=== PATIENT | male | born 1965 | race African-American/Black ===

== ENCOUNTER 2020-09-25 06:57 | Emergency (ER) | payer MEDICAID ==
[2020-09-25 07:16] VITALS: BP 182/95; PULSE 99
[2020-09-25] MEDS: Ketorolac 60 MG/2 ML SDV IM ONE (07:37)
--- NOTE | 2020-09-25 07:37 | EDM.PDOC ---
ED HPI GENERAL MEDICAL PROBLEM - General Chief Complaint: Lower Extremity Injury/Pain Stated Complaint: LEG PAIN AND HIP PAIN Time Seen by Provider: 09/25/20 07:25 Source of Information: Reports: Patient, Old Records, RN History Limitations: Reports: No Limitations - History of Present Illness INITIAL COMMENTS - FREE TEXT/NARRATIVE: 55 yo male presents with bilateral hip pain, left worse than right. Has been walking a little different due a recent gout flare. Had some pain last evening, much worse today. Unable to go to work today due to the pain. He has no hx of hip issues. He took nothing for the pain. He has not missed any of his BP meds. He recently had atenolol 50 mg started for persistent HTN. 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 (see below) (none) - Related Data Allergies Allergy/AdvReac Type Severity Reaction Status Date / Time penicillin Allergy Severe Anaphylactic Verified 09/25/20 07:15 Shock lactose Allergy Stomach Verified 09/25/20 07:15 Ache Home Meds: Home Meds Lisinopril 40 mg PO BID 07/24/15 [History] allopurinoL [Allopurinol] 300 mg PO DAILY 07/24/15 [History] amLODIPine Besylate [Amlodipine Besylate] 10 mg PO BID 07/24/15 [History] Albuterol Sulfate [Proair Hfa] 2 puff INH Q4H PRN 04/10/20 [History] Colchicine 0.6 mg PO BID 04/10/20 [History] Indomethacin [Indocin] 25 mg PO TID 04/10/20 [History] atorvaSTATin [Lipitor] 10 mg PO BEDTIME 04/10/20 [History] atenoloL [Atenolol] 50 mg PO DAILY 09/25/20 [History] predniSONE [Prednisone] 20 mg PO ASDIRECTED 09/25/20 [History] Past Medical History HEENT History: Reports: Impaired Vision Cardiovascular History: Reports: High Cholesterol, Hypertension Respiratory History: Reports: Asthma Gastrointestinal History: Reports: None Musculoskeletal History: Reports: Other (See Below) Other Musculoskeletal History: gout - Infectious Disease History Infectious Disease History: Reports: Chicken Pox, Measles, Mumps - Past Surgical History Head Surgeries/Procedures: Reports: None HEENT Surgical History: Reports: None Respiratory Surgical History: Reports: None GI Surgical History: Reports: Hernia Repair/Other Musculoskeletal Surgical History: Reports: Arthroscopic Knee Dermatological Surgical History: Reports: None Social & Family History - Tobacco Use Tobacco Use Status *Q: Current Some Day Tobacco User Years of Tobacco use: 20 Packs/Tins Daily: 0.1 Used Tobacco, but Quit: No Second Hand Smoke Exposure: No - Caffeine Use Caffeine Use: Reports: None - Recreational Drug Use Recreational Drug Use: No Review of Systems - Review of Systems Review Of Systems: See Below Constitutional: Reports: No Symptoms Musculoskeletal: Reports: Joint Pain (bilateral hips L > R) Skin: Reports: No Symptoms Neurological: Reports: No Symptoms ED EXAM, GENERAL - Physical Exam Exam: See Below Exam Limited By: No Limitations General Appearance: Alert, WD/WN, No Apparent Distress Extremities: Normal Inspection, No Pedal Edema, Limited Range of Motion (of L hip joint due to pain). No: Normal Range of Motion, Non-Tender, Pedal Edema, Joint Swelling, Trent's Sign, Leg Pain, Increased Warmth, Redness Neurological: Alert, Oriented, CN II-XII Intact, Normal Cognition, No Motor/Sensory Deficits Course - Vital Signs Last Recorded V/S: Last Vital Signs Temp 37.2 C 09/25/20 07:19 Pulse 99 09/25/20 07:19 Resp 16 09/25/20 07:19 BP 182/95 H 09/25/20 07:19 Pulse Ox 97 09/25/20 07:19 - Orders/Labs/Meds Orders: Active Orders 24 hr Category Date Time Status Hip Min 2V or 3V Lt [CR] Stat Exams 09/25/20 07:32 Ordered Meds: Medications Discontinued Medications Generic Name Dose Route Start Last Admin Trade Name Freq PRN Reason Stop Dose Admin Ketorolac Tromethamine 60 mg 09/25/20 07:32 09/25/20 07:37 Toradol IM 09/25/20 07:33 60 mg ONETIME ONE Administration - Radiology Interpretation Free Text/Narrative:: L hip [id number]: 1. No acute fracture. 2. No left hip joint space narrowing. Dictated by Jeffrey Hall MD @ 09/25/2020 8:44:32 AM Departure - Departure Time of Disposition: 09:00 Disposition: Home, Self-Care 01 Condition: Good Clinical Impression: Hip pain, bilateral - Discharge Information *PRESCRIPTION DRUG MONITORING PROGRAM REVIEWED*: Not Applicable *COPY OF PRESCRIPTION DRUG MONITORING REPORT IN PATIENT [place]: Not Applicable Referrals: Lon Rodriguez NP [Primary Care Provider] - Forms: ED Department Discharge Additional Instructions: Rest. Take Naproxen 500 mg every 12 hrs with food. Add acetaminophen up to 1000 mg every 6 hrs for added pain relief. Someone will be calling you later today for an orthopedic appt with Dr. Tirado. Stay in close touch with your primary regarding your BP as it is still too high. Return as needed. Sepsis Event Note (ED) - Evaluation Sepsis Screening Result: No Definite Risk - Focused Exam Vital Signs: Vital Signs Temp Pulse Resp BP Pulse Ox 09/25/20 07:19 37.2 C 99 16 182/95 H 97 09/25/20 07:14 37.2 C 99 16 182/95 H 97 - My Orders Last 24 Hours: My Active Orders 09/25/20 07:32 Hip Min 2V or 3V Lt [CR] Stat - Assessment/Plan Last 24 Hours: My Active Orders 09/25/20 07:32 Hip Min 2V or 3V Lt [CR] Stat
--- NOTE | 2020-09-25 08:46 | CRLCR ---
HISTORY: Left hip pain. TECHNIQUE: Two views of the left hip. COMPARISON: No prior. FINDINGS: There is no acute fracture. No hip dislocation. No hip joint space narrowing. There is a labral region ossicle about the acetabular periphery which appears chronic. IMPRESSION: 1. No acute fracture. 2. No left hip joint space narrowing. Dictated by Jeffrey Hall MD @ 09/25/2020 8:44:32 AM Dictated by: Jeffrey Hall MD @ 09/25/2020 08:44:37 (Electronically Signed)
== END 2020-09-25 09:12 | disposition home or self-care (01) ==
LOC: JP.ED 06:57
DX: M25.551 Pain in right hip (principal); M25.552 Pain in left hip; I10 Essential (primary) hypertension; E78.00 Pure hypercholesterolemia, unspecified; J45.909 Unspecified asthma, uncomplicated; F17.210 Nicotine dependence, cigarettes, uncomplicated; Z91.011 Allergy to milk products; Z88.0 Allergy status to penicillin; Z79.899 Other long term (current) drug therapy
CPT/HCPCS: 73502; 96372; 99283; J1885

== ENCOUNTER 2020-10-20 15:46 | Emergency (ER) | payer MEDICAID ==
[2020-10-20 16:49] VITALS: BP 151/103; PULSE 114
[2020-10-20] MEDS ORDERED: Ketorolac 60 MG/2 ML SDV IM ONE (16:59)
--- NOTE | 2020-10-20 17:01 | EDM.PDOC ---
ED HPI GENERAL MEDICAL PROBLEM - General Chief Complaint: Upper Extremity Injury/Pain Stated Complaint: RT WRIST PAIN Time Seen by Provider: 10/20/20 16:56 Source of Information: Reports: Patient, RN Notes Reviewed History Limitations: Reports: No Limitations - History of Present Illness INITIAL COMMENTS - FREE TEXT/NARRATIVE: 55-year-old gentleman presents emergency department with a complaint of right wrist pain he denies any trauma he states he awoke this morning severe pain in his right wrist it is also warm to the touch he does have a history of gout usually goes to both knees right wrist Pain Score (Numeric/FACES): 8 - Related Data Allergies Allergy/AdvReac Type Severity Reaction Status Date / Time penicillin Allergy Severe Anaphylactic Verified 10/20/20 16:33 Shock lactose Allergy Stomach Verified 10/20/20 16:33 Ache Home Meds: Home Meds Lisinopril 40 mg PO BID 07/24/15 [History] allopurinoL [Allopurinol] 300 mg PO DAILY 07/24/15 [History] amLODIPine Besylate [Amlodipine Besylate] 10 mg PO BID 07/24/15 [History] Albuterol Sulfate [Proair Hfa] 2 puff INH Q4H PRN 04/10/20 [History] Colchicine 0.6 mg PO BID 04/10/20 [History] Indomethacin [Indocin] 25 mg PO TID 04/10/20 [History] atorvaSTATin [Lipitor] 10 mg PO BEDTIME 04/10/20 [History] atenoloL [Atenolol] 50 mg PO DAILY 09/25/20 [History] Past Medical History HEENT History: Reports: Impaired Vision Cardiovascular History: Reports: High Cholesterol, Hypertension Respiratory History: Reports: Asthma Gastrointestinal History: Reports: None Musculoskeletal History: Reports: Gout Other Musculoskeletal History: gout - Infectious Disease History Infectious Disease History: Reports: Chicken Pox, Measles, Mumps - Past Surgical History Head Surgeries/Procedures: Reports: None HEENT Surgical History: Reports: None Cardiovascular Surgical History: Reports: None Respiratory Surgical History: Reports: None GI Surgical History: Reports: Hernia Repair/Other Musculoskeletal Surgical History: Reports: Arthroscopic Knee Dermatological Surgical History: Reports: None Social & Family History - Tobacco Use Tobacco Use Status *Q: Never Tobacco User - Caffeine Use Caffeine Use: Reports: None - Recreational Drug Use Recreational Drug Use: No Review of Systems - Review of Systems Review Of Systems: See Below Musculoskeletal: Reports: Joint Pain (Wrist pain) Skin: Reports: No Symptoms ED EXAM, GENERAL - Physical Exam Exam: See Below Free Text/Narrative:: Examination the right wrist it is edematous I cannot appreciate any change in skin color due to the color of his melatonin it is exquisitely tender to the touch difficulty with flexion extension due to pain full range of motion of all digits I do not appreciate any breaks in the skin radial pulses +2 Exam Limited By: No Limitations General Appearance: Alert, WD/WN, No Apparent Distress Course - Vital Signs Last Recorded V/S: Last Vital Signs Temp 100.7 F H 10/20/20 16:40 Pulse 114 H 10/20/20 16:40 Resp 16 10/20/20 16:40 BP 151/103 H 10/20/20 16:40 Pulse Ox 96 10/20/20 16:40 - Orders/Labs/Meds Labs: Laboratory Tests 10/20/20 10/20/20 10/20/20 Range/Units 17:10 17:10 17:10 WBC 10.7 (4.5-11.0) K/uL RBC 5.05 (4.30-5.90) M/uL Hgb 13.9 (12.0-15.0) g/dL Hct 42.8 (40.0-54.0) % MCV 85 (80-98) fL MCH 28 (27-31) pg MCHC 33 (32-36) % Plt Count 244 (150-400) K/uL Neut % (Auto) 69 H (36-66) % Lymph % (Auto) 22 L (24-44) % [place] % (Auto) 8 H (2-6) % Eos % (Auto) 0 L (2-4) % Baso % (Auto) 0 (0-1) % Sodium 139 L (140-148) mmol/L Potassium 3.4 L (3.6-5.2) mmol/L Chloride 102 (100-108) mmol/L Carbon Dioxide 26 (21-32) mmol/L Anion Gap 14.4 H (5.0-14.0) mmol/L BUN 10 (7-18) mg/dL Creatinine 1.1 (0.8-1.3) mg/dL Est Cr Clr Drug Dosing 83.01 mL/min Estimated GFR (MDRD) > 60 (>60) Glucose 104 (74-106) mg/dL Uric Acid 4.6 (3.5-7.2) mg/dL Calcium 9.0 (8.5-10.1) mg/dL Meds: Medications Discontinued Medications Generic Name Dose Route Start Last Admin Trade Name Julio PRN Reason Stop Dose Admin Ketorolac Tromethamine 60 mg 10/20/20 16:59 10/20/20 17:09 Toradol IM 10/20/20 17:00 60 mg ONETIME ONE Administration Departure - Departure Time of Disposition: 17:54 Disposition: Home, Self-Care 01 Condition: Fair Clinical Impression: Gout of right wrist Qualifiers: Gout etiology: unspecified cause Chronicity: acute Qualified Code(s): M10.9 - G out, unspecified - Discharge Information Referrals: Lon Rodriguez DERMATOLOGY NURSE [Primary Care Provider] - Forms: ED Department Discharge, ED Return to Work/School Form Additional Instructions: Take full course of prednisone, use ibuprofen for baseline pain control use hydrocodone for breakthrough pain please followup with your primary care provider in 5-7 days if not better, please call return to the emergency department with worsening of symptoms. Sepsis Event Note (ED) - Evaluation Sepsis Screening Result: No Definite Risk - Focused Exam Vital Signs: Vital Signs Temp Pulse Resp BP Pulse Ox 10/20/20 16:40 100.7 F H 114 H 16 151/103 H 96 10/20/20 16:30 100.7 F H 114 H 16 151/103 H 96 - Assessment/Plan Plan: Assessment Acuity = acute Site and laterality = gout right wrist Etiology = unknown Manifestations = pain Location of injury = Home Lab values = CBC, BMP, uric acid all within normal limits Plan Elected to treat empirically prednisone 20 mg once a day for 5 days, hydrocodone 5/325 1 tab p.o. 3 times daily as needed total #10 follow-up primary care 5 to 7 days if not better, did receive treatment in the emergency department with Toradol which did provide some relief This note was dictated using [employer] voice recognition software please call with any questions on syntax or grammar.
== END 2020-10-20 18:22 | disposition home or self-care (01) ==
LOC: JP.ED 15:46
DX: M10.9 Gout, unspecified (principal); E78.00 Pure hypercholesterolemia, unspecified; I10 Essential (primary) hypertension; J45.909 Unspecified asthma, uncomplicated; Z88.0 Allergy status to penicillin; Z91.048 Other nonmedicinal substance allergy status; Z79.899 Other long term (current) drug therapy
CPT/HCPCS: 36415; 80048; 84550; 85025; 96372; 99283; J1885

== ENCOUNTER 2020-11-15 07:13 | Day surgery (SDC) | payer MEDICAID ==
[2020-11-15] MEDS ORDERED: Dextrose 5%-Lactated Ringers 1,000 ML IV SCH (07:45)
[2020-11-15] MEDS ORDERED: Propofol 200 MG/20 ML SDV ONE ×2 (08:53→09:13)
[2020-11-15] MEDS ORDERED: Midazolam 1 MG/ML 2 ML SDV ONE (08:53)
[2020-11-15] MEDS ORDERED: fentaNYL 100 MCG/2 ML SDV ONE (08:53)
[2020-11-15 10:28] VITALS: BP 156/92; PULSE 66
--- NOTE | 2020-11-30 09:26 | OR ---
DATE OF PROCEDURE: 11/15/2020 SURGEON: Prieto Blair MD PREOPERATIVE DIAGNOSIS: Indication for screening colonoscopy. POSTOPERATIVE DIAGNOSIS: Screening colonoscopy showing 2 small polyps in the distal sigmoid colon. OPERATIVE PROCEDURE: A flexible colonoscopy with polypectomy x2. ANESTHESIA: IV sedation. INDICATION FOR PROCEDURE: A 55-year-old male presenting with indication for screening colonoscopy. Potential risks of the procedure including bleeding and perforation were discussed, and the patient wishes to proceed. DETAILS OF PROCEDURE: The patient was taken to the operating room and placed in a left lateral decubitus position. IV sedation was administered, after which the initial digital rectal exam was performed and was unremarkable. Scope was then passed into the rectum and retroflexion revealed uncomplicated hemorrhoidal columns. Scope was eventually passed to the cecum. The prep was quite good with only small liquid stool present to that level. The patient was noted to have 2 small polyps within the sigmoid colon, both at around 15 cm from the dentate line. These were both excised by means of cautery snare technique and sent for histologic evaluation. Otherwise, there were no areas of diverticulosis or colitis, and no additional polyps or signs of neoplasia were seen and the procedure was then concluded. Recommendation will be to repeat the colonoscopy in 2 years given the presence of 2 polyps seen today. Prieto Blair MD /[id number]
== END 2020-11-15 10:45 | disposition home or self-care (01) ==
LOC: JP.SDS 07:13
PROVIDERS: ATTEND Surgery
DX: Z12.11 Encounter for screening for malignant neoplasm of colon (principal); K63.5 Polyp of colon; K64.9 Unspecified hemorrhoids; J45.909 Unspecified asthma, uncomplicated; I10 Essential (primary) hypertension; E66.9 Obesity, unspecified; Z88.8 Allergy status to other drugs, medicaments and biological substances; Z88.0 Allergy status to penicillin; Z68.30 Body mass index [BMI] 30.0-30.9, adult
CPT/HCPCS: 45385; 88305; J2250; J2704; J3010; J7121

== ENCOUNTER 2021-01-07 19:43 | Emergency (ER) | payer MEDICAID ==
[2021-01-07 20:01] VITALS: BP 185/105; PULSE 96
--- NOTE | 2021-01-07 20:53 | EDM.PDOC ---
ED HPI GENERAL MEDICAL PROBLEM - General Chief Complaint: Back Pain or Injury Stated Complaint: FELL DOWN 12 STEPS Time Seen by Provider: 01/07/21 20:48 Source of Information: Reports: Patient, RN Notes Reviewed History Limitations: Reports: No Limitations - History of Present Illness INITIAL COMMENTS - FREE TEXT/NARRATIVE: 55-year-old gentleman presents emergency department day complaint of low back pain he injured himself when he slipped going down his stairs landed predominantly on his right buttocks area he is now complaining of pain in the paraspinal area there is no loss of consciousness no other significant trauma he thinks he may have bruised his right jang was able to ambulate without difficulty, Back Pain Score (Numeric/FACES): 8 - Related Data Allergies Allergy/AdvReac Type Severity Reaction Status Date / Time penicillin Allergy Severe Anaphylactic Verified 01/07/21 20:23 Shock hydrochlorothiazide Allergy Joint Pain Verified 01/07/21 20:23 lactose Allergy Stomach Verified 01/07/21 20:23 Ache Home Meds: Home Meds Lisinopril 40 mg PO BID 07/24/15 [History] allopurinoL [Allopurinol] 300 mg PO DAILY 07/24/15 [History] amLODIPine Besylate [Amlodipine Besylate] 10 mg PO BID 07/24/15 [History] Albuterol Sulfate [Proair Hfa] 2 puff INH Q4H PRN 04/10/20 [History] Colchicine 0.6 mg PO BID 04/10/20 [History] atorvaSTATin [Lipitor] 10 mg PO BEDTIME 04/10/20 [History] Past Medical History HEENT History: Reports: Impaired Vision Cardiovascular History: Reports: High Cholesterol, Hypertension Respiratory History: Reports: Asthma Gastrointestinal History: Reports: GERD Musculoskeletal History: Reports: Gout Other Musculoskeletal History: gout Hematologic History: Reports: None Immunologic History: Reports: None Oncologic (Cancer) History: Reports: None Dermatologic History: Reports: None - Infectious Disease History Infectious Disease History: Reports: Chicken Pox, Measles, Mumps - Past Surgical History Head Surgeries/Procedures: Reports: None HEENT Surgical History: Reports: None Cardiovascular Surgical History: Reports: None Respiratory Surgical History: Reports: None GI Surgical History: Reports: Hernia Repair/Other Male Surgical History: Reports: None Endocrine Surgical History: Reports: None Neurological Surgical History: Reports: None Musculoskeletal Surgical History: Reports: Arthroscopic Knee Dermatological Surgical History: Reports: None Social & Family History - Family History Family Medical History: No Pertinent Family History - Tobacco Use Tobacco Use Status *Q: Never Tobacco User - Caffeine Use Caffeine Use: Reports: Coffee - Recreational Drug Use Recreational Drug Use: No ED ROS GENERAL - Review of Systems Review Of Systems: See Below Constitutional: Reports: No Symptoms Respiratory: Reports: No Symptoms Cardiovascular: Reports: No Symptoms GI/Abdominal: Reports: No Symptoms Musculoskeletal: Reports: Back Pain Neurological: Reports: No Symptoms ED EXAM,LOWER BACK PAIN/INJURY - Physical Exam Exam: See Below Exam Limited By: No Limitations General Appearance: Alert, WD/WN, No Apparent Distress Respiratory/Chest: No Respiratory Distress Back Exam: Normal Inspection, Decreased Range of Motion, Muscle Spasm, Paraspinal Tenderness. No: CVA Tenderness (R), CVA Tenderness (L), Vertebral Tenderness Extremities: Normal Inspection, Normal Range of Motion, Non-Tender, No Pedal Edema Course - Vital Signs Last Recorded V/S: Last Vital Signs Temp 97.5 F 01/07/21 20:22 Pulse 96 01/07/21 20:22 Resp 16 01/07/21 20:22 BP 185/105 H 01/07/21 20:22 Pulse Ox 97 01/07/21 20:22 - Orders/Labs/Meds Meds: Medications Discontinued Medications Generic Name Dose Route Start Last Admin Trade Name Julio PRN Reason Stop Dose Admin Cyclobenzaprine HCl 10 mg 01/07/21 20:51 01/07/21 21:01 Cyclobenzaprine 10 Mg Tab PO 01/07/21 20:52 10 mg ONETIME ONE Administration Ketorolac Tromethamine 60 mg 01/07/21 20:51 01/07/21 21:01 Ketorolac 60 Mg/2 Ml Sdv IM 01/07/21 20:52 60 mg ONETIME ONE Administration Departure - Departure Time of Disposition: 21:51 Disposition: Home, Self-Care 01 Condition: Fair Clinical Impression: Low back pain Qualifiers: Chronicity: acute Back pain laterality: right Sciatica presence: without sciatica Qualified Code(s): M54.5 - Low back pain - Discharge Information Instructions: Muscle Strain, [id number], Acute Back Pain, Adult Referrals: Lon Rodriguez RESEARCH AIDE [Primary Care Provider] - Forms: ED Department Discharge, ED Return to Work/School Form Additional Instructions: Use Flexeril as needed for muscle spasms, use ibuprofen for baseline pain control use hydrocodone for breakthrough pain, please followup with your primary care provider in 3-5 days if not better, please call return to the emergency department with worsening of symptoms. Sepsis Event Note (ED) - Evaluation Sepsis Screening Result: No Definite Risk - Focused Exam Vital Signs: Vital Signs Temp Pulse Resp BP Pulse Ox 01/07/21 20:22 97.5 F 96 16 185/105 H 97 01/07/21 19:59 97.5 F 96 16 185/105 H 97 - Assessment/Plan Plan: Assessment Acuity = acute Site and laterality = low back pain Etiology = secondary to trauma Manifestations = none Location of injury = Home Lab values = none Plan Good relief combination Flexeril and Toradol, prescription written for Flexeril 10 mg p.o. 3 times daily as needed total #15 as well as hydrocodone 5/325 1 tab p.o. 3 times daily as needed total #6 follow-up primary care in 3 to 5 days if not better This note was dictated using [employer] voice recognition software please call with any questions on syntax or grammar.
[2021-01-07] MEDS: Ketorolac 60 MG/2 ML SDV IM ONE (21:01)
[2021-01-07] MEDS: Cyclobenzaprine 10 MG Tab PO ONE (21:01)
== END 2021-01-07 22:04 | disposition home or self-care (01) ==
LOC: JP.ED 19:43
DX: M54.5 Low back pain (principal); E78.00 Pure hypercholesterolemia, unspecified; I10 Essential (primary) hypertension; J45.909 Unspecified asthma, uncomplicated; Z88.0 Allergy status to penicillin; Z88.8 Allergy status to other drugs, medicaments and biological substances; Z91.011 Allergy to milk products; Z79.899 Other long term (current) drug therapy
CPT/HCPCS: 96372; 99283; A9270; J1885

== ENCOUNTER 2021-02-07 18:36 | Emergency (ER) | payer MEDICAID ==
--- NOTE | 2021-02-07 18:59 | EDM.PDOC ---
ED HPI GENERAL MEDICAL PROBLEM - General Chief Complaint: Lower Extremity Injury/Pain Stated Complaint: RIGHT LEG SWOLLEN Time Seen by Provider: 02/07/21 18:45 Source of Information: Reports: Patient History Limitations: Reports: No Limitations - History of Present Illness INITIAL COMMENTS - FREE TEXT/NARRATIVE: 55-year-old male is in with right leg swelling for the past 3 days. He received an injection into the lateral aspect of his right knee 6 days ago, and a couple of days later he started developing swelling in the lower extremity. Today he noticed the swelling was worse, it extended from the knee to the foot, his skin was slightly warm and erythematous compared to the left side. No significant pain. No fevers or chills. Onset: Gradual Duration: Day(s): (3 days of right lower extremity swelling) Location: Reports: Lower Extremity, Right Associated Symptoms: Denies: Chest Pain, Fever/Chills, Headaches, Loss of Appetite, Malaise, Nausea/Vomiting, Shortness of Breath, Weakness - Related Data Allergies Allergy/AdvReac Type Severity Reaction Status Date / Time penicillin Allergy Severe Anaphylactic Verified 01/07/21 20:23 Shock hydrochlorothiazide Allergy Joint Pain Verified 01/07/21 20:23 lactose Allergy Stomach Verified 01/07/21 20:23 Ache Home Meds: Home Meds Lisinopril 40 mg PO BID 07/24/15 [History] allopurinoL [Allopurinol] 300 mg PO DAILY 07/24/15 [History] amLODIPine Besylate [Amlodipine Besylate] 10 mg PO BID 07/24/15 [History] Albuterol Sulfate [Proair Hfa] 2 puff INH Q4H PRN 04/10/20 [History] Colchicine 0.6 mg PO BID 04/10/20 [History] atorvaSTATin [Lipitor] 10 mg PO BEDTIME 04/10/20 [History] Past Medical History HEENT History: Reports: Impaired Vision Cardiovascular History: Reports: High Cholesterol, Hypertension Respiratory History: Reports: Asthma Gastrointestinal History: Reports: GERD Genitourinary History: Reports: None Musculoskeletal History: Reports: Gout Other Musculoskeletal History: gout Neurological History: Reports: None Psychiatric History: Reports: None Endocrine/Metabolic History: Reports: None Hematologic History: Reports: None Immunologic History: Reports: None Oncologic (Cancer) History: Reports: None Dermatologic History: Reports: None - Infectious Disease History Infectious Disease History: Reports: Chicken Pox, Measles, Mumps - Past Surgical History Head Surgeries/Procedures: Reports: None HEENT Surgical History: Reports: None Cardiovascular Surgical History: Reports: None Respiratory Surgical History: Reports: None GI Surgical History: Reports: Hernia Repair/Other Male Surgical History: Reports: None Endocrine Surgical History: Reports: None Neurological Surgical History: Reports: None Musculoskeletal Surgical History: Reports: Arthroscopic Knee Dermatological Surgical History: Reports: None Social & Family History - Family History Family Medical History: No Pertinent Family History - Tobacco Use Tobacco Use Status *Q: Never Tobacco User Second Hand Smoke Exposure: No - Caffeine Use Caffeine Use: Reports: Soda - Recreational Drug Use Recreational Drug Use: No Review of Systems - Review of Systems Review Of Systems: See Below Respiratory: Denies: Shortness of Breath Cardiovascular: Denies: Chest Pain Genitourinary: Denies: Hematuria Musculoskeletal: Reports: Other (Chronic right knee pain, history of gout) Skin: Reports: Erythema Neurological: Reports: No Symptoms Psychiatric: Reports: No Symptoms ED EXAM, GENERAL - Physical Exam Exam: See Below Exam Limited By: No Limitations General Appearance: Alert, No Apparent Distress Head: Atraumatic Respiratory/Chest: No Respiratory Distress, Lungs Clear Cardiovascular: Regular Rate, Rhythm Extremities: Other (Patient is 1+ pitting edema from the knee to the ankle on the right leg, no edema on the left) Neurological: Alert, Oriented Psychiatric: Normal Affect, Normal Mood Skin Exam: Warm, Dry, Erythema (Slight erythema and warmth from the knee to the ankle on the right leg, no significant discomfort to palpation.) Course - Vital Signs Last Recorded V/S: Last Vital Signs Temp 98.3 F 02/07/21 18:48 Pulse 106 H 02/07/21 18:48 Resp 16 02/07/21 18:48 BP 204/120 H 02/07/21 18:48 Pulse Ox 98 02/07/21 18:48 - Orders/Labs/Meds Orders: Active Orders 24 hr Category Date Time Status VL Duplex Lwr Ext Veins Ltd Rt [US] Stat Exams 02/07/21 18:54 Taken - Re-Assessments/Exams Free Text/Narrative Re-Assessment/Exam: 02/07/21 20:11 An ultrasound was done in the right leg to rule out DVT and it was entirely negative. His leg was wrapped in 6 inch Joseph wraps, he was encouraged to elevate the leg and he was put on 5 days of clindamycin. He will return if not improving satisfactorily. Increase activity as tolerated, elevate leg when able. Departure - Departure Time of Disposition: 20:02 Disposition: Home, Self-Care 01 Clinical Impression: Edema of right lower extremity, Cellulitis of leg, right - Discharge Information Instructions: Cellulitis, Adult Referrals: Lon Rodriguez [employer] [Primary Care Provider] - Forms: ED Department Discharge Care Plan Goals: Use antibiotic for 5 days as prescribed, elevate the leg and use Joseph wraps for swelling if able, and increase activity as tolerated. Return if worsening despite treatment or you develop other concerns such as persistent fever or increased pain. Sepsis Event Note (ED) - Evaluation Sepsis Screening Result: No Definite Risk - Focused Exam Vital Signs: Vital Signs Temp Pulse Resp BP Pulse Ox 02/07/21 18:48 98.3 F 106 H 16 204/120 H 98 02/07/21 18:45 98.3 F 106 H 16 204/120 H 98 - My Orders Last 24 Hours: My Active Orders 02/07/21 18:54 VL Duplex Lwr Ext Veins Ltd Rt [US] Stat - Assessment/Plan Last 24 Hours: My Active Orders 02/07/21 18:54 VL Duplex Lwr Ext Veins Ltd Rt [US] Stat
[2021-02-07 19:13] VITALS: BP 204/120; PULSE 106
--- NOTE | 2021-02-10 09:53 | US ---
VL Duplex Lwr Ext Veins Ltd Rt INDICATION: swelling after procedure FINDINGS: Ultrasound examination of the lower extremity using Doppler and compressive technique demonstrates that the common femoral, femoral, and popliteal veins are patent, and negative for thrombus. The calf veins were segmentally visualized and are negative where seen. IMPRESSION: Negative for deep venous thrombosis.
== END 2021-02-07 20:02 | disposition home or self-care (01) ==
LOC: JP.ED 18:36
DX: L03.115 Cellulitis of right lower limb (principal); E78.00 Pure hypercholesterolemia, unspecified; I10 Essential (primary) hypertension; K21.9 Gastro-esophageal reflux disease without esophagitis; J45.909 Unspecified asthma, uncomplicated; M10.9 Gout, unspecified; Z79.899 Other long term (current) drug therapy; Z88.0 Allergy status to penicillin; Z88.8 Allergy status to other drugs, medicaments and biological substances; Z91.048 Other nonmedicinal substance allergy status
CPT/HCPCS: 93971-26; 93971-RT; 99283-25

== ENCOUNTER 2021-04-21 07:08 | Day surgery (SDC) | payer MEDICAID ==
[~2021-04-21 07:08] MED LIST: Bupivacaine 0.5% 30 ML SDV ONE
[2021-04-21] MEDS ORDERED: Nozin Nasal Sanitizer NASBOTH ONE (07:30)
[2021-04-21] MEDS ORDERED: Clindamycin Phosphate 900 MG in Sodium Chloride 0.9% 100 ML IV ONE (07:30)
[2021-04-21] MEDS ORDERED: Lactated Ringers 1,000 ML IV SCH (07:30)
[2021-04-21] MEDS ORDERED: fentaNYL 250 MCG/5 ML SDV ONE (07:31)
[2021-04-21] MEDS ORDERED: Dexamethasone 4 MG/ML SDV ONE (07:32)
[2021-04-21] MEDS ORDERED: Rocuronium 50 MG/5 ML Vial ONE (07:32)
[2021-04-21] MEDS ORDERED: Ondansetron 4 MG/2 ML SDV ONE (07:32)
[2021-04-21] MEDS ORDERED: Propofol 200 MG/20 ML SDV ONE (07:32)
[2021-04-21] MEDS ORDERED: Succinylcholine 200 MG/10 ML MDV ONE (07:32)
[2021-04-21 07:57] LABS: CORONAVIRUS COVID-19 NAA NEGATIVE (NEGATIVE)
[2021-04-21] MEDS ORDERED: Neostigmine Methylsulfate 1 MG/ML 5 ML Syringe ONE (10:19)
[2021-04-21] MEDS ORDERED: Glycopyrrolate 0.2 MG/ML 5 ML MDV ONE (10:19)
[2021-04-21] MEDS ORDERED: Ketorolac 30 MG/ML SDV ONE (10:30)
[2021-04-21 12:16] VITALS: BP 148/86; PULSE 64
--- NOTE | 2021-04-23 20:42 | OR ---
DATE OF PROCEDURE: 04/21/2021 SURGEON: Luca Tirado MD PREOPERATIVE DIAGNOSES: 1. Degenerative meniscus tear, right knee. 2. Chondromalacia, right knee. POSTOPERATIVE DIAGNOSES: 1. Degenerative lateral meniscus tear, right knee. 2. Chondromalacia, right knee, tricompartmental, with grade 4 lesions in the lateral compartment, grade 2 and 3 changes patellofemoral joint and medial femoral condyle. PROCEDURE PERFORMED: Arthroscopy of right knee with debridement of lateral meniscus and chondroplasty of medial femoral condyle and lateral femoral condyle. ANESTHESIA: General. INDICATIONS: Natasha is a 56-year-old gentleman with a history of bilateral knee pain, worse right than left. It has been ongoing for a number of years. It has gotten progressively worse over the past few months. He is having difficulty with any prolonged walking or standing, catching and giving way. X-rays and MRI are consistent with moderate degenerative changes without complete joint space collapse and evidence of lateral meniscus tear. He is brought to the operating room for debridement in an attempt to prolong the need for joint replacement. Risks, benefits, and potential complications were discussed. He has failed injection treatment, activity modification, and medications. DESCRIPTION OF PROCEDURE: After adequate anesthesia was obtained, the patient was placed supine with a tourniquet about the right upper thigh. The right leg was prepped and draped in a sterile fashion. The leg was exsanguinated and tourniquet inflated to 300 mmHg pressure. Standard anterior portals were established. The scope was introduced. Patellofemoral joint was inspected. This revealed some grade 2 changes with thinning on the patella and grade 3 changes of the trochlea with a significant area of near full-thickness articular cartilage loss. No significant flaps were present, and no full- thickness loss was noted. Medial compartment showed intact meniscus, but grade 3 changes of the medial femoral condyle and grade 2 changes of the tibial plateau. Some loose flaps were present along with multiple minuscule articular cartilage fragments throughout the compartment. These were irrigated out and a very light chondroplasty performed, removing just the loose chondral flaps around the periphery of the defect. ACL and PCL were intact. Lateral compartment showed a degenerative tear of the lateral meniscus at the junction of the midbody and posterior horn. This was a laminated combination of parrot beak and horizontal cleavage. A shaver was used to remove the unstable portion of the tear. Significant degenerative changes noted in the lateral compartment with full- thickness articular cartilage loss from the tibial plateau, grade 3 and 4 changes of the femoral condyle with a small area of full-thickness loss on the femoral condyle as well. The loose flap of the meniscus was debrided, and several small loose chondral flaps from the femoral condyle and tibial plateau were also debrided. All loose fragments were removed. The knee was drained. The scope was withdrawn. The port sites were closed in a standard fashion. The knee was infiltrated with 0.5% Marcaine, and a sterile dressing was applied. The patient tolerated the procedure well. There were no complications. He was taken from the operating room in stable condition. Luca Tirado MD /[id number] MTDD
== END 2021-04-21 12:31 | disposition home or self-care (01) ==
LOC: JP.SDS 07:08
PROVIDERS: ATTEND Specialist
DX: M23.251 Derangement of posterior horn of lateral meniscus due to old tear or injury, right knee (principal); M94.261 Chondromalacia, right knee; I10 Essential (primary) hypertension; E78.1 Pure hyperglyceridemia; J45.909 Unspecified asthma, uncomplicated; E66.9 Obesity, unspecified; Z01.812 Encounter for preprocedural laboratory examination; Z20.822 Contact with and (suspected) exposure to COVID-19; Z98.890 Other specified postprocedural states; Z79.899 Other long term (current) drug therapy; Z88.0 Allergy status to penicillin; Z88.8 Allergy status to other drugs, medicaments and biological substances; Z68.30 Body mass index [BMI] 30.0-30.9, adult
CPT/HCPCS: 0241U; 29881; A9270; J0330; J1100; J1885; J2405; J2704; J2710; J3010; J3490; J7120

== ENCOUNTER 2021-04-28 12:53 | Emergency (ER) | payer MEDICAID ==
[2021-04-28 13:20] VITALS: BP 168/100; PULSE 100
--- NOTE | 2021-04-28 14:05 | EDM.PDOC ---
ED HPI GENERAL MEDICAL PROBLEM - General Chief Complaint: Lower Extremity Injury/Pain Stated Complaint: B LEGS SWOLLEN AFTER SURGERY Time Seen by Provider: 04/28/21 13:45 Source of Information: Reports: Patient, Family History Limitations: Reports: No Limitations - History of Present Illness INITIAL COMMENTS - FREE TEXT/NARRATIVE: 56-year-old male with right knee surgery 1 week ago, presents with persistent swelling of the knee, increased pain, and difficulty bearing weight without crutches. No fevers or chills, he is concerned about the swelling and possible infection. Onset: Gradual Duration: Day(s): (Increased swelling and discomfort the last 2 to 3 days) Location: Reports: Lower Extremity, Right Quality: Reports: Ache Worsens with: Reports: Other (Weightbearing increases pain), Movement - Related Data Allergies Allergy/AdvReac Type Severity Reaction Status Date / Time penicillin Allergy Severe Anaphylactic Verified 04/28/21 13:23 Shock hydrochlorothiazide Allergy Joint Pain Verified 04/28/21 13:23 lactase Allergy Other Verified 04/28/21 13:23 [From Lactose Fast Acting Relief] lactose Allergy Stomach Verified 04/28/21 13:23 Ache Home Meds: Home Meds Lisinopril 40 mg PO BID 07/24/15 [History] allopurinoL [Allopurinol] 300 mg PO DAILY 07/24/15 [History] amLODIPine Besylate [Amlodipine Besylate] 10 mg PO BID 07/24/15 [History] Albuterol Sulfate [Proair Hfa] 2 puff INH Q6H PRN 04/10/20 [History] Colchicine 0.6 mg PO BID 04/10/20 [History] atorvaSTATin [Lipitor] 10 mg PO BEDTIME 04/10/20 [History] atenoloL [Atenolol] 100 mg PO DAILY 03/31/21 [History] hydrALAZINE [Apresoline] 25 mg PO TID 03/31/21 [History] Past Medical History HEENT History: Reports: Impaired Vision Cardiovascular History: Reports: High Cholesterol, Hypertension Respiratory History: Reports: Asthma Gastrointestinal History: Reports: GERD Genitourinary History: Reports: None Musculoskeletal History: Reports: Gout Other Musculoskeletal History: gout. bilateral knee pain Neurological History: Reports: None Psychiatric History: Reports: None Endocrine/Metabolic History: Reports: Obesity/BMI 30+ Hematologic History: Reports: None Immunologic History: Reports: None Oncologic (Cancer) History: Reports: None Dermatologic History: Reports: None - Infectious Disease History Infectious Disease History: Reports: Chicken Pox, Measles, Mumps - Past Surgical History Head Surgeries/Procedures: Reports: None HEENT Surgical History: Reports: None Cardiovascular Surgical History: Reports: None Respiratory Surgical History: Reports: None GI Surgical History: Reports: Colonoscopy, Hernia Repair/Other Male Surgical History: Reports: None Endocrine Surgical History: Reports: None Neurological Surgical History: Reports: None Musculoskeletal Surgical History: Reports: Arthroscopic Knee Dermatological Surgical History: Reports: None Social & Family History - Family History Family Medical History: No Pertinent Family History - Tobacco Use Tobacco Use Status *Q: Current Every Day Tobacco User Years of Tobacco use: 40 Packs/Tins Daily: 0.3 Used Tobacco, but Quit: No Second Hand Smoke Exposure: No - Caffeine Use Caffeine Use: Reports: Soda - Recreational Drug Use Recreational Drug Use: No Review of Systems - Review of Systems Review Of Systems: See Below Constitutional: Denies: Fever Respiratory: Reports: No Symptoms Cardiovascular: Reports: No Symptoms Skin: Reports: Bruising (Slight bruising is present around the knee) Neurological: Denies: Paresthesia ED EXAM, GENERAL - Physical Exam Exam: See Below Exam Limited By: No Limitations General Appearance: Alert, No Apparent Distress (Fairly comfortable while sitting on the exam table) Respiratory/Chest: No Respiratory Distress, Lungs Clear Cardiovascular: Regular Rate, Rhythm. No: Tachycardia Extremities: Other (Exam is otherwise limited to the lower extremities. There is diffuse swelling with effusion around the right knee compared to the left. Arthroscopic incisions look excellent, no significant erythema or drainage. Just a trace of distal edema) Neurological: Alert, Oriented Course - Vital Signs Last Recorded V/S: Last Vital Signs Temp 97.5 F 04/28/21 13:26 Pulse 100 04/28/21 13:26 Resp 16 04/28/21 13:26 BP 168/100 H 04/28/21 13:26 Pulse Ox 100 04/28/21 13:26 - Orders/Labs/Meds Orders: Active Orders 24 hr Category Date Time Status Consult to Orthopedic Clinic [CONS] Routine Cons 04/28/21 14:02 Active - Re-Assessments/Exams Free Text/Narrative Re-Assessment/Exam: 04/28/21 16:33 Discussed his condition with Dr. Tirado, orthopedic surgery who performed his procedure 1 week ago. It is unlikely is developed an infection, he will recheck him in clinic tomorrow. A 4 inch Joseph wrap was applied to the knee and he will be called tomorrow morning for an appointment time. Departure - Departure Time of Disposition: 14:17 Disposition: Home, Self-Care 01 Clinical Impression: Postoperative pain of right knee - Discharge Information Instructions: Acute Knee Pain, Adult Referrals: Lon Rodriguez [employer] [Primary Care Provider] - Forms: ED Department Discharge Care Plan Goals: Use hydrocodone and Toradol as prescribed for pain, continue wrapping the knee for comfort and elevate when able. Dr. Tirado will see you tomorrow for recheck. Return sooner if worsening such as fever, chills, increased erythema or swelling of the right knee. Sepsis Event Note (ED) - Evaluation Sepsis Screening Result: No Definite Risk - Focused Exam Vital Signs: Vital Signs Temp Pulse Resp BP Pulse Ox 04/28/21 13:26 97.5 F 100 16 168/100 H 100 04/28/21 13:18 97.5 F 100 168/100 H 100 - My Orders Last 24 Hours: My Active Orders 04/28/21 14:02 Consult to Orthopedic Clinic [CONS] Routine - Assessment/Plan Last 24 Hours: My Active Orders 04/28/21 14:02 Consult to Orthopedic Clinic [CONS] Routine
== END 2021-04-28 14:17 | disposition home or self-care (01) ==
LOC: JP.ED 12:53
DX: G89.18 Other acute postprocedural pain (principal); M25.561 Pain in right knee; E78.00 Pure hypercholesterolemia, unspecified; I10 Essential (primary) hypertension; J45.909 Unspecified asthma, uncomplicated; E66.9 Obesity, unspecified; Z68.30 Body mass index [BMI] 30.0-30.9, adult; Z72.0 Tobacco use; Z88.0 Allergy status to penicillin; Z88.8 Allergy status to other drugs, medicaments and biological substances; Z91.011 Allergy to milk products; Z79.899 Other long term (current) drug therapy; Z98.890 Other specified postprocedural states
CPT/HCPCS: 99283

== ENCOUNTER 2021-08-28 05:37 | Emergency (ER) | payer MEDICAID ==
[2021-08-28 06:14] VITALS: BP 178/114; PULSE 87
--- NOTE | 2021-08-28 06:22 | EDM.PDOC ---
ED HPI GENERAL MEDICAL PROBLEM - General Chief Complaint: Upper Extremity Injury/Pain Stated Complaint: LEFT SIDE NUMB Time Seen by Provider: 08/28/21 06:06 Source of Information: Reports: Patient History Limitations: Reports: No Limitations - History of Present Illness INITIAL COMMENTS - FREE TEXT/NARRATIVE: Patient presents to the ER today due to L-shoulder pain/stiffness that started increasing yesterday. He works lifting alot of heavy items, moving things including pallets. Pain is located in shoulder joint area causing increased pain with movement. Yesterday he took 800mg of OTC ibuprofen twice with some relief but pain returned and he reports numbness sensation that goes down arm. Additionally, he had pain that went down his left side to hip but that has resolved PMH--HTN (he states improved control after last PCM appointment/medication adjustment, forgot to take his meds this morning) Meds--reviewed in EMR Allergies--PCN, HCTZ - Related Data Allergies Allergy/AdvReac Type Severity Reaction Status Date / Time penicillin Allergy Severe Anaphylactic Verified 04/28/21 13:23 Shock hydrochlorothiazide Allergy Joint Pain Verified 04/28/21 13:23 lactase Allergy Other Verified 04/28/21 13:23 [From Lactose Fast Acting Relief] lactose Allergy Stomach Verified 04/28/21 13:23 Ache Home Meds: Home Meds Lisinopril 40 mg PO BID 07/24/15 [History] allopurinoL [Allopurinol] 300 mg PO DAILY 07/24/15 [History] amLODIPine Besylate [Amlodipine Besylate] 10 mg PO BID 07/24/15 [History] Albuterol Sulfate [Proair Hfa] 2 puff INH Q6H PRN 04/10/20 [History] Colchicine 0.6 mg PO BID 04/10/20 [History] atorvaSTATin [Lipitor] 10 mg PO BEDTIME 04/10/20 [History] atenoloL [Atenolol] 100 mg PO DAILY 03/31/21 [History] hydrALAZINE [Apresoline] 25 mg PO TID 03/31/21 [History] Past Medical History HEENT History: Reports: Impaired Vision Cardiovascular History: Reports: High Cholesterol, Hypertension Respiratory History: Reports: Asthma Gastrointestinal History: Reports: GERD Genitourinary History: Reports: None Musculoskeletal History: Reports: Gout Other Musculoskeletal History: gout. bilateral knee pain Neurological History: Reports: None Psychiatric History: Reports: None Endocrine/Metabolic History: Reports: Obesity/BMI 30+ Hematologic History: Reports: None Immunologic History: Reports: None Oncologic (Cancer) History: Reports: None Dermatologic History: Reports: None - Infectious Disease History Infectious Disease History: Reports: Chicken Pox, Measles, Mumps - Past Surgical History Head Surgeries/Procedures: Reports: None HEENT Surgical History: Reports: None Cardiovascular Surgical History: Reports: None Respiratory Surgical History: Reports: None GI Surgical History: Reports: Colonoscopy, Hernia Repair/Other Male Surgical History: Reports: None Endocrine Surgical History: Reports: None Neurological Surgical History: Reports: None Musculoskeletal Surgical History: Reports: Arthroscopic Knee Other Musculoskeletal Surgeries/Procedures:: Rt knee scope 04/21/21 Dermatological Surgical History: Reports: None Social & Family History - Family History Family Medical History: No Pertinent Family History - Tobacco Use Tobacco Use Status *Q: Current Some Day Tobacco User Years of Tobacco use: 1 Packs/Tins Daily: 0.1 - Caffeine Use Caffeine Use: Reports: Soda - Recreational Drug Use Recreational Drug Use: No Review of Systems - Review of Systems Review Of Systems: Comprehensive ROS is negative, except as noted in HPI. Constitutional: Reports: No Symptoms Respiratory: Reports: No Symptoms Cardiovascular: Reports: No Symptoms GI/Abdominal: Reports: No Symptoms Musculoskeletal: Reports: Shoulder Pain Neurological: Reports: No Symptoms ED EXAM, GENERAL - Physical Exam Exam: See Below Exam Limited By: No Limitations General Appearance: Alert, WD/WN, Mild Distress (left shoulder pain, increases with movement) Eye Exam: Bilateral Eye: EOMI, Normal Inspection Ears: Normal External Exam, Hearing Grossly Normal Nose: Normal Inspection Throat/Mouth: Normal Inspection, Normal Lips, Normal Voice, No Airway Compromise Head: Atraumatic, Normocephalic Neck: Normal Inspection, Supple, Non-Tender, Full Range of Motion Respiratory/Chest: No Respiratory Distress, Lungs Clear, Normal Breath Sounds Cardiovascular: Normal Peripheral Pulses, Regular Rate, Rhythm, No Murmur Peripheral Pulses: 2+: Radial (L), Radial (R) (Male) Exam: Deferred Rectal (Males) Exam: Deferred Back Exam: Normal Inspection, Full Range of Motion Extremities: Normal Inspection, Normal Range of Motion (slow due to pain but able to complete rotation, cross shoulder adduction, internal rotation; left anterior/posterior jointline tenderness), Normal Capillary Refill Neurological: Alert, Oriented, Normal Cognition, Normal Gait, No Motor/Sensory Deficits Psychiatric: Normal Affect, Normal Mood Skin Exam: Warm, Dry, Intact, Normal Color Course - Vital Signs Last Recorded V/S: Last Vital Signs Temp 97.7 F 08/28/21 05:53 Pulse 87 08/28/21 05:53 Resp 16 08/28/21 05:53 BP 178/114 H 08/28/21 06:03 Pulse Ox 97 08/28/21 05:53 Departure - Departure Time of Disposition: 06:16 Disposition: Home, Self-Care 01 Clinical Impression: Left shoulder tendonitis, Hypertension - Discharge Information *PRESCRIPTION DRUG MONITORING PROGRAM REVIEWED*: Not Applicable *COPY OF PRESCRIPTION DRUG MONITORING REPORT IN PATIENT [place]: Not Applicable Instructions: How to Take Your Blood Pressure, Hypertension, Adult, [id number], Form - Blood Pressure Record Sheet, Managing Your Hypertension, Shoulder Pain, [id number], Rotator Cuff Tendinitis Referrals: PCP,None [Primary Care Provider] - Luca Tirado MD [Physician] - Additional Instructions: I have provided you with a prescription for ketatorlac (Toradol)--use as prescribed. Do not use ibuprofen (Motrin, Advil) or naproxen (Alleve) in the same day as these are all the same type of medication and increased / double doses can damage your kidney You may use ice, heat, athletic rubs of choice for any pain/discomfort Contact Orthopedics for ER follow up appointment next week Take your blood pressure medications as prescribed, do not skip doses. Take your blood pressure medication soon as you get home. Follow up with your family doctor regarding your ongoing blood pressure management Sepsis Event Note (ED) - Evaluation Sepsis Screening Result: No Definite Risk - Focused Exam Vital Signs: Vital Signs Temp Pulse Resp BP Pulse Ox 08/28/21 06:03 178/114 H 08/28/21 05:53 97.7 F 87 16 188/107 H 97
== END 2021-08-28 06:40 | disposition home or self-care (01) ==
LOC: JP.ED 05:37
DX: M77.8 Other enthesopathies, not elsewhere classified (principal); I10 Essential (primary) hypertension; M10.9 Gout, unspecified; E66.9 Obesity, unspecified; Z79.899 Other long term (current) drug therapy; Z88.0 Allergy status to penicillin; Z88.8 Allergy status to other drugs, medicaments and biological substances; Z91.011 Allergy to milk products; Z72.0 Tobacco use; Z68.31 Body mass index [BMI] 31.0-31.9, adult
CPT/HCPCS: 99283

== ENCOUNTER 2021-09-09 09:54 | Inpatient (IN) | payer MEDICAID ==
[2021-09-09] MEDS ORDERED: Sodium Chloride 0.9% 10 ML Syringe FLUSH PRN (10:28)
--- NOTE | 2021-09-09 10:31 | EDM.PDOC ---
ED HPI GENERAL MEDICAL PROBLEM - General Chief Complaint: Respiratory Problem Stated Complaint: MEDICAL VIA [facility] Time Seen by Provider: 09/09/21 10:15 Source of Information: Reports: Patient, Old Records, RN History Limitations: Reports: No Limitations - History of Present Illness INITIAL COMMENTS - FREE TEXT/NARRATIVE: 56 yo black male arrives from his home in [place] via EMS for dyspnea. Was dx on 09/01 with Covid after onset of sx's the . Has not been vaccinated for Covid. He is an [facility] patient, but has not been in communication with anyone there since getting his diagnosis. He has been having some diarrhea, but no nausea. He had a low grade fever earlier on in the course of his illness. Onset: Gradual Onset Date: 08/29/21 Duration: Getting Worse Location: Reports: Chest Quality: Reports: Other (no pain) Severity: Moderate (dyspnea) Improves with: Reports: Other (oxygen) Worsens with: Reports: Other (exertion) Context: Reports: Other (See HPI) Associated Symptoms: Reports: Cough, Fever/Chills, Malaise, Shortness of Breath. 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 (see below) (oxygen per EMS) - Related Data Allergies Allergy/AdvReac Type Severity Reaction Status Date / Time penicillin Allergy Severe Anaphylactic Verified 09/09/21 10:08 Shock hydrochlorothiazide Allergy Joint Pain Verified 09/09/21 10:08 lactase Allergy Other Verified 09/09/21 10:08 [From Lactose Fast Acting Relief] lactose Allergy Stomach Verified 09/09/21 10:08 Ache Home Meds: Home Meds Lisinopril 40 mg PO BID 07/24/15 [History] allopurinoL [Allopurinol] 300 mg PO DAILY 07/24/15 [History] amLODIPine Besylate [Amlodipine Besylate] 10 mg PO BID 07/24/15 [History] Albuterol Sulfate [Proair Hfa] 2 puff INH Q6H PRN 04/10/20 [History] Colchicine 0.6 mg PO BID 04/10/20 [History] atorvaSTATin [Lipitor] 10 mg PO BEDTIME 04/10/20 [History] atenoloL [Atenolol] 100 mg PO DAILY 03/31/21 [History] hydrALAZINE [Apresoline] 25 mg PO TID 03/31/21 [History] Past Medical History HEENT History: Reports: Impaired Vision Cardiovascular History: Reports: High Cholesterol, Hypertension Respiratory History: Reports: Asthma Gastrointestinal History: Reports: GERD Genitourinary History: Reports: None Musculoskeletal History: Reports: Gout Other Musculoskeletal History: gout. bilateral knee pain Neurological History: Reports: None Psychiatric History: Reports: None Endocrine/Metabolic History: Reports: Obesity/BMI 30+ Hematologic History: Reports: None Immunologic History: Reports: None Oncologic (Cancer) History: Reports: None Dermatologic History: Reports: None - Infectious Disease History Infectious Disease History: Reports: Chicken Pox, Measles, Mumps - Past Surgical History Head Surgeries/Procedures: Reports: None HEENT Surgical History: Reports: None Cardiovascular Surgical History: Reports: None Respiratory Surgical History: Reports: None GI Surgical History: Reports: Colonoscopy, Hernia Repair/Other Male Surgical History: Reports: None Endocrine Surgical History: Reports: None Neurological Surgical History: Reports: None Musculoskeletal Surgical History: Reports: Arthroscopic Knee Other Musculoskeletal Surgeries/Procedures:: Rt knee scope 04/21/21 Dermatological Surgical History: Reports: None Social & Family History - Family History Family Medical History: No Pertinent Family History - Tobacco Use Tobacco Use Status *Q: Never Tobacco User - Caffeine Use Caffeine Use: Reports: Soda - Recreational Drug Use Recreational Drug Use: No ED ROS GENERAL - Review of Systems Review Of Systems: See Below Constitutional: Reports: Fever, Chills, Malaise HEENT: Reports: No Symptoms Respiratory: Reports: Shortness of Breath, Cough. Denies: Wheezing, Sputum, Hemoptysis Cardiovascular: Reports: No Symptoms GI/Abdominal: Reports: Diarrhea. Denies: Hematochezia, Nausea, Vomiting : Reports: No Symptoms Musculoskeletal: Reports: No Symptoms Skin: Reports: No Symptoms Neurological: Reports: No Symptoms ED EXAM, GENERAL - Physical Exam Exam: See Below Exam Limited By: No Limitations General Appearance: Alert, WD/WN, No Apparent Distress Eye Exam: Bilateral Eye: Normal Inspection Ears: Normal External Exam, Normal Canal, Hearing Grossly Normal Ear Exam: Bilateral Ear: Auricle Normal, Canal Normal Nose: Normal Inspection, No Blood Throat/Mouth: Normal Inspection, Normal Lips, Normal Oropharynx, Normal Voice, No Airway Compromise Head: Atraumatic, Normocephalic Neck: Normal Inspection Respiratory/Chest: Respiratory Distress, Crackles, Other (tachypnea). No: No R espiratory Distress, Lungs Clear, Normal Breath Sounds Cardiovascular: Regular Rate, Rhythm, No Edema, Tachycardia GI/Abdominal: Soft, Non-Tender, No Distention Extremities: Normal Inspection Neurological: Alert, Oriented, CN II-XII Intact, Normal Cognition, No Motor/Sensory Deficits Psychiatric: Normal Affect, Normal Mood Skin Exam: Warm, Dry, Intact, Normal Color, No Rash Course - Vital Signs Last Recorded V/S: Last Vital Signs Temp 36.7 C 09/09/21 14:23 Pulse 96 09/09/21 15:49 Resp 30 H 09/09/21 14:23 BP 144/80 H 09/09/21 15:49 Pulse Ox 90 L 09/09/21 14:23 - Orders/Labs/Meds Orders: Active Orders 24 hr Category Date Time Status C-REACTIVE PROTEIN [CHEM] Stat Lab 09/09/21 15:52 Received HEPATIC FUNCTION PANEL,HFP [CHEM] DAILY Lab 09/10/21 14:00 Ordered HEPATIC FUNCTION PANEL,HFP [CHEM] DAILY Lab 09/11/21 14:00 Ordered HEPATIC FUNCTION PANEL,HFP [CHEM] DAILY Lab 09/12/21 14:00 Ordered HEPATIC FUNCTION PANEL,HFP [CHEM] DAILY Lab 09/13/21 14:00 Ordered PROCALCITONIN [CHEM] Stat Lab 09/09/21 15:52 Received Iopamidol [Isovue-370 (76%)] Med 09/09/21 12:45 Active 100 ml IV . DIRECTED Remdesivir 200 mg Med 09/09/21 15:00 Active Sodium Chloride 0.9% [Normal Saline] 250 ml IV ONETIME Sodium Chloride 0.9% [Normal Saline] 100 ml Med 09/09/21 12:45 Active IV ASDIRECTED Sodium Chloride 0.9% [Saline Flush] Med 09/09/21 10:28 Active 10 ml FLUSH ASDIRECTED PRN Saline Lock Insert [OM.PC] Routine Oth 09/09/21 10:28 Ordered Medication Orders Sodium Chloride (Normal Saline) 100 mls @ 4 mls/sec IV ASDIRECTED [facility] Last Admin: 09/09/21 12:58 Dose: 4 mls/sec Documented by: ELIZABET Remdesivir 200 mg/ Sodium (Chloride) 250 mls @ 250 mls/hr IV ONETIME ONE Stop: 09/09/21 15:59 Last Admin: 09/09/21 15:01 Dose: 250 mls/hr Documented by: SUSIE Iopamidol (Iopamidol 755 Mg/Ml 100 Ml Bottle) 100 ml IV . DIRECTED YUSEF Last Admin: 09/09/21 12:58 Dose: 100 ml Documented by: ELIZABET Sodium Chloride (Sodium Chloride 0.9% 10 Ml Syringe) 10 ml FLUSH ASDIRECTED PRN PRN Reason: Keep Vein Open Last Admin: 09/09/21 12:47 Dose: 10 ml Documented by: SUSIE Labs: Laboratory Tests 09/09/21 09/09/21 09/09/21 Range/Units 10:45 10:45 10:45 WBC 9.9 (4.5-11.0) K/uL RBC 5.97 H (4.30-5.90) M/uL Hgb 15.9 H D (12.0-15.0) g/dL Hct 45.5 (40.0-54.0) % MCV 76 L (80-98) fL MCH 27 (27-31) pg MCHC 35 (32-36) % Plt Count 257 (150-400) K/uL D-Dimer, Quantitative > 27113.00 H (0.0-500.0) ng/mL Sodium 133 L (140-148) mmol/L Potassium 3.8 (3.6-5.2) mmol/L Chloride 96 L (100-108) mmol/L Carbon Dioxide 21 (21-32) mmol/L Anion Gap 19.8 H (5.0-14.0) mmol/L BUN 29 H D (7-18) mg/dL Creatinine 1.5 H (0.8-1.3) mg/dL Est Cr Clr Drug Dosing 59.26 mL/min Estimated GFR (MDRD) 59 L (>60) Glucose 111 H (74-106) mg/dL Calcium 8.7 (8.5-10.1) mg/dL Total Bilirubin 1.6 H D (0.2-1.0) mg/dL AST 142 H D (15-37) U/L ALT 97 H (12-78) U/L Alkaline Phosphatase 125 H D (46-116) U/L Total Protein 8.0 (6.4-8.2) g/dL Albumin 2.8 L (3.4-5.0) g/dL Globulin 5.2 H (2.3-3.5) g/dL Albumin/Globulin Ratio 0.5 L (1.2-2.2) Urine Color (YELLOW) Urine Appearance (CLEAR) Urine pH (5.0-8.0) Ur Specific [place] (1.008-1.030) Urine Protein (NEGATIVE) mg/dL Urine Glucose (UA) (NEGATIVE) mg/dL Urine Ketones (NEGATIVE) mg/dL Urine Occult Blood (NEGATIVE) Urine Nitrite (NEGATIVE) Urine Bilirubin (NEGATIVE) Urine Urobilinogen (0.2-1.0) EU/dL Ur Leukocyte Esterase (NEGATIVE) Urine RBC (0-5) Urine WBC (0-5) Ur Epithelial Cells Amorphous Sediment Urine Bacteria Urine Mucus SARS CoV-2 RNA Rapid AIME 09/09/21 09/09/21 Range/Units 11:23 12:48 WBC (4.5-11.0) K/uL RBC (4.30-5.90) M/uL Hgb (12.0-15.0) g/dL Hct (40.0-54.0) % MCV (80-98) fL MCH (27-31) pg MCHC (32-36) % Plt Count (150-400) K/uL D-Dimer, Quantitative (0.0-500.0) ng/mL Sodium (140-148) mmol/L Potassium (3.6-5.2) mmol/L Chloride (100-108) mmol/L Carbon Dioxide (21-32) mmol/L Anion Gap (5.0-14.0) mmol/L BUN (7-18) mg/dL Creatinine (0.8-1.3) mg/dL Est Cr Clr Drug Dosing mL/min Estimated GFR (MDRD) (>60) Glucose (74-106) mg/dL Calcium (8.5-10.1) mg/dL Total Bilirubin (0.2-1.0) mg/dL AST (15-37) U/L ALT (12-78) U/L Alkaline Phosphatase (46-116) U/L Total Protein (6.4-8.2) g/dL Albumin (3.4-5.0) g/dL Globulin (2.3-3.5) g/dL Albumin/Globulin Ratio (1.2-2.2) Urine Color Yellow (YELLOW) Urine Appearance Clear (CLEAR) Urine pH 6.0 (5.0-8.0) Ur Specific [place] 1.015 (1.008-1.030) Urine Protein 100 H (NEGATIVE) mg/dL Urine Glucose (UA) Negative (NEGATIVE) mg/dL Urine Ketones Trace H (NEGATIVE) mg/dL Urine Occult Blood Negative (NEGATIVE) Urine Nitrite Negative (NEGATIVE) Urine Bilirubin Small H (NEGATIVE) Urine Urobilinogen 0.2 (0.2-1.0) EU/dL Ur Leukocyte Esterase Negative (NEGATIVE) Urine RBC 0-5 (0-5) Urine WBC 0-5 (0-5) Ur Epithelial Cells Not seen Amorphous Sediment Not seen Urine Bacteria Many Urine Mucus Not seen SARS CoV-2 RNA Rapid AIME Negative Meds: Medications Generic Name Dose Route Start Last Admin Trade Name Freq PRN Reason Stop Dose Admin Sodium Chloride 100 mls @ 4 mls/sec 09/09/21 12:45 09/09/21 12:58 Normal Saline IV 4 mls/sec ASDIRECTED YUSEF Administration Remdesivir 200 mg/ Sodium 250 mls @ 250 mls/hr 09/09/21 15:00 09/09/21 15:01 Chloride IV 09/09/21 15:59 250 mls/hr ONETIME ONE Administration Iopamidol 100 ml 09/09/21 12:45 09/09/21 12:58 Iopamidol 755 Mg/Ml 100 Ml Bottle IV 100 ml . DIRECTED YUSEF Administration Sodium Chloride 10 ml 09/09/21 10:28 09/09/21 12:47 Sodium Chloride 0.9% 10 Ml Syringe FLUSH 10 ml ASDIRECTED PRN Administration Keep Vein Open Discontinued Medications Generic Name Dose Route Start Last Admin Trade Name Freq PRN Reason Stop Dose Admin Dexamethasone 6 mg 09/09/21 13:50 09/09/21 15:00 Dexamethasone 4 Mg/Ml Sdv IVPUSH 09/09/21 13:51 6 mg ONETIME ONE Administration Sodium Chloride 10 ml 09/09/21 12:45 09/09/21 12:58 Sodium Chloride 0.9% 10 Ml Syringe FLUSH 09/09/21 12:46 10 ml ONETIME ONE Administration - Radiology Interpretation Free Text/Narrative:: Angio Chest-MPRESSION: No pulmonary embolism. Diffuse ground-glass opacities throughout the lungs concerning for infection. This pattern is quite typical for COVID-19 pneumonia. Please note that all CT scans at this facility use dose modulation, iterative reconstruction, and/or weight-based dosing when appropriate to reduce radiation dose to as low as reasonably achievable. Dictated by Ayana Draper MD @ 09/09/2021 1:46:[address] Results Date: 09/09/21 CT Results Time: 13:48 Departure - Departure Time of Disposition: 15:57 Disposition: Admitted As Inpatient 67 Condition: Serious Clinical Impression: COVID-19, Hypoxia - Discharge Information Referrals: PCP,None [Primary Care Provider] - Forms: ED Department Discharge Sepsis Event Note (ED) - Evaluation Sepsis Screening Result: Possible Sepsis Risk - Focused Exam Vital Signs: Vital Signs Temp Pulse Resp BP Pulse Ox 09/09/21 15:49 96 144/80 H 09/09/21 14:23 36.7 C 67 30 H 140/56 L 90 L 09/09/21 13:37 58 L 142/63 H 90 L 09/09/21 11:24 36.7 C 56 L 24 H 112/79 92 L 09/09/21 10:04 36.8 C 109 H 28 H 126/77 81 L - My Orders Last 24 Hours: My Active Orders 09/09/21 10:28 Sodium Chloride 0.9% [Saline Flush] 10 ml FLUSH ASDIRECTED PRN Saline Lock Insert [OM.PC] Routine 09/09/21 12:45 Iopamidol [Isovue-370 (76%)] 100 ml IV . DIRECTED Sodium Chloride 0.9% [Normal Saline] 100 ml IV ASDIRECTED 09/09/21 15:00 Remdesivir 200 mg Sodium Chloride 0.9% [Normal Saline] 250 ml IV ONETIME 09/10/21 14:00 HEPATIC FUNCTION PANEL,HFP [CHEM] DAILY 09/11/21 14:00 HEPATIC FUNCTION PANEL,HFP [CHEM] DAILY 09/12/21 14:00 HEPATIC FUNCTION PANEL,HFP [CHEM] DAILY 09/13/21 14:00 HEPATIC FUNCTION PANEL,HFP [CHEM] DAILY - Assessment/Plan Last 24 Hours: My Active Orders 09/09/21 10:28 Sodium Chloride 0.9% [Saline Flush] 10 ml FLUSH ASDIRECTED PRN Saline Lock Insert [OM.PC] Routine 09/09/21 12:45 Iopamidol [Isovue-370 (76%)] 100 ml IV . DIRECTED Sodium Chloride 0.9% [Normal Saline] 100 ml IV ASDIRECTED 09/09/21 15:00 Remdesivir 200 mg Sodium Chloride 0.9% [Normal Saline] 250 ml IV ONETIME 09/10/21 14:00 HEPATIC FUNCTION PANEL,HFP [CHEM] DAILY 09/11/21 14:00 HEPATIC FUNCTION PANEL,HFP [CHEM] DAILY 09/12/21 14:00 HEPATIC FUNCTION PANEL,HFP [CHEM] DAILY 09/13/21 14:00 HEPATIC FUNCTION PANEL,HFP [CHEM] DAILY
[2021-09-09] MEDS ORDERED: Sodium Chloride 0.9% 10 ML Syringe FLUSH ONE (12:45)
[2021-09-09] MEDS ORDERED: Iopamidol 755 Mg/ML 100 ML Bottle IV SCH (12:45)
[2021-09-09] MEDS ORDERED: Sodium Chloride 0.9% 100 ML IV SCH (12:45)
--- NOTE | 2021-09-09 13:47 | CRLCT ---
For Patients: As a result of the Century Cures Act, medical imaging exams and procedure reports are released immediately into your electronic medical record. You may view this report before your referring provider. If you have questions, please contact your health care provider. INDICATION: Negative COVID test today, positive COVID test September 01, hypoxia with elevated D-dimer TECHNIQUE: CT chest pulmonary PE protocol acquired with 100 cc Isovue 370 IV contrast. COMPARISON: None FINDINGS: Cardiovascular structures: Normal vascular enhancement of the pulmonary arteries, no sign of pulmonary embolism. Heart size is normal. No sign of aneurysm or dissection in the thoracic aorta. Mediastinum and prudencio: No mass or adenopathy. Lungs: Diffuse ground-glass opacities throughout the lungs. Pleura and pericardium: No effusions. Chest wall and axilla: No mass or adenopathy. Upper abdomen: Unremarkable. Bones: No significant findings. IMPRESSION: No pulmonary embolism. Diffuse ground-glass opacities throughout the lungs concerning for infection. This pattern is quite typical for COVID-19 pneumonia. Please note that all CT scans at this facility use dose modulation, iterative reconstruction, and/or weight-based dosing when appropriate to reduce radiation dose to as low as reasonably achievable. Dictated by Ayana Draper MD @ 09/09/2021 1:46:54 PM (Electronically Signed)
[2021-09-09] MEDS ORDERED: REMDESIVIR 200 MG in Sodium Chloride 0.9% 250 ML IV ONE ×2 (13:50→15:00)
[2021-09-09] MEDS ORDERED: Dexamethasone 4 MG/ML SDV IVPUSH ONE (13:50)
--- NOTE | 2021-09-09 16:25 | PCM.HP.2 ---
H&P History of Present Illness - General Date of Service: 09/09/21 Admit Problem/Dx: Admission Diagnosis/Problem Admission Diagnosis/Problem Pneumonia Source of Information: Patient, Provider History Limitations: Reports: No Limitations - History of Present Illness Initial Comments - Free Text/Narative: CC: I kept getting worse HPI: Natasha presents to the emergency room today with increasing shortness of breath. He thinks he first had symptoms of illness about 10 days ago but initially he had left arm pain and left shoulder pain. He did get antibiotics and steroids and this felt better. On Wednesday, 8 days ago he started to have some cough and shortness of breath. This has slowly progressed since that time and has been much more intense over the past couple of days. He reports nasal congestion, sore throat, cough with occasional sputum as well as subjective fevers. He has had some nausea and diarrhea. He is now short of breath with any activity. He does not report any chest pain. He is not aware of any obvious sick contacts but has been active in the community. He is not vaccinated against COVID19. He was so short of breath today that he thought he had better get checked out. He was initially diagnosed with Covid last week. He was not offered monoclonal antibodies at that time. Work-up in the emergency room revealed acute respiratory failure with hypoxia. His D-dimer was quite high at more than 50,[address] pulmonary angiogram did not show evidence for a pulmonary embolism. He is requiring 5 to 6 L of oxygen. He has received dexamethasone and remdesivir. He will be admitted for further management. - Related Data Allergies/Adverse Reactions: Allergies Allergy/AdvReac Type Severity Reaction Status Date / Time penicillin Allergy Severe Anaphylactic Verified 09/09/21 10:08 Shock hydrochlorothiazide Allergy Joint Pain Verified 09/09/21 10:08 lactase Allergy Other Verified 09/09/21 10:08 [From Lactose Fast Acting Relief] lactose Allergy Stomach Verified 09/09/21 10:08 Ache Home Medications: Home Meds Lisinopril 40 mg PO BID 07/24/15 [History] allopurinoL [Allopurinol] 300 mg PO DAILY 07/24/15 [History] amLODIPine Besylate [Amlodipine Besylate] 10 mg PO BID 07/24/15 [History] Albuterol Sulfate [Proair Hfa] 2 puff INH Q6H PRN 04/10/20 [History] Colchicine 0.6 mg PO BID 04/10/20 [History] atorvaSTATin [Lipitor] 10 mg PO BEDTIME 04/10/20 [History] atenoloL [Atenolol] 100 mg PO DAILY 03/31/21 [History] hydrALAZINE [Apresoline] 25 mg PO TID 03/31/21 [History] Past Medical History HEENT History: Reports: Impaired Vision Cardiovascular History: Reports: High Cholesterol, Hypertension Respiratory History: Reports: Asthma Gastrointestinal History: Reports: GERD Genitourinary History: Reports: None Musculoskeletal History: Reports: Gout Other Musculoskeletal History: gout. bilateral knee pain Neurological History: Reports: None Psychiatric History: Reports: None Endocrine/Metabolic History: Reports: Obesity/BMI 30+ Hematologic History: Reports: None Immunologic History: Reports: None Oncologic (Cancer) History: Reports: None Dermatologic History: Reports: None - Infectious Disease History Infectious Disease History: Reports: Chicken Pox, Measles, Mumps - Past Surgical History Head Surgeries/Procedures: Reports: None HEENT Surgical History: Reports: None Cardiovascular Surgical History: Reports: None Respiratory Surgical History: Reports: None GI Surgical History: Reports: Colonoscopy, Hernia Repair/Other Male Surgical History: Reports: None Endocrine Surgical History: Reports: None Neurological Surgical History: Reports: None Musculoskeletal Surgical History: Reports: Arthroscopic Knee Other Musculoskeletal Surgeries/Procedures:: Rt knee scope 04/21/21 Dermatological Surgical History: Reports: None Social & Family History - Family History Family Medical History: No Pertinent Family History - Tobacco Use Tobacco Use Status *Q: Never Tobacco User - Caffeine Use Caffeine Use: Reports: Soda - Alcohol Use Alcohol Use History: No Alcohol Use in Last Twelve Months: No - Recreational Drug Use Recreational Drug Use: No H&P Review of Systems - Review of Systems: Review Of Systems: See Below Free Text/Narrative: A complete 12 point review of systems was obtained. Pertinent positives and negatives are noted in the history of present illness. All other systems were reviewed and were negative except as noted. Exam - Exam Exam: See Below - Vital Signs Vital Signs: Last Vital Signs Temp 36.7 C 09/09/21 14:23 Pulse 96 09/09/21 15:49 Resp 30 H 09/09/21 14:23 BP 144/80 H 09/09/21 15:49 Pulse Ox 90 L 09/09/21 14:23 Weight: 103.419 kg - Exam Quality Assessment: Supplemental Oxygen General: Alert, Oriented, Cooperative, Mild Distress HEENT: Conjunctiva Clear. No: Mucosa Moist & [place] (dry), Scleral Icterus Neck: Supple, Trachea Midline. No: JVD Lungs: Crackles (mild diffuse both sides). No: Normal Respiratory Effort (tachypnea ) Cardiovascular: Regular Rhythm, Tachycardia. No: Systolic Murmur GI/Abdominal Exam: Normal Bowel Sounds, Soft, Non-Tender, No Distention Back Exam: Normal Inspection, Full Range of Motion Extremities: No Pedal Edema. No: Increased Warmth Skin: Warm, Dry Neuro Extensive - Mental Status: Alert, Oriented x3, Nl Response to Commands Neuro Extensive - Motor, Sensory, Reflexes: No: Dysarthria, Abnormal Motor, Tremor Psychiatric: Alert, Normal Affect - Patient Data Lab Results Last 24 hrs: Laboratory Results - last 24 hr 09/09/21 09/09/21 09/09/21 Range/Units 10:45 10:45 10:45 WBC 9.9 (4.5-11.0) K/uL RBC 5.97 H (4.30-5.90) M/uL Hgb 15.9 H D (12.0-15.0) g/dL Hct 45.5 (40.0-54.0) % MCV 76 L (80-98) fL MCH 27 (27-31) pg MCHC 35 (32-36) % Plt Count 257 (150-400) K/uL D-Dimer, Quantitative > 75798.00 H (0.0-500.0) ng/mL Sodium 133 L (140-148) mmol/L Potassium 3.8 (3.6-5.2) mmol/L Chloride 96 L (100-108) mmol/L Carbon Dioxide 21 (21-32) mmol/L Anion Gap 19.8 H (5.0-14.0) mmol/L BUN 29 H D (7-18) mg/dL Creatinine 1.5 H (0.8-1.3) mg/dL Est Cr Clr Drug Dosing 59.26 mL/min Estimated GFR (MDRD) 59 L (>60) Glucose 111 H (74-106) mg/dL Calcium 8.7 (8.5-10.1) mg/dL Total Bilirubin 1.6 H D (0.2-1.0) mg/dL AST 142 H D (15-37) U/L ALT 97 H (12-78) U/L Alkaline Phosphatase 125 H D (46-116) U/L C-Reactive Protein (0.0-0.3) mg/dL Total Protein 8.0 (6.4-8.2) g/dL Albumin 2.8 L (3.4-5.0) g/dL Globulin 5.2 H (2.3-3.5) g/dL Albumin/Globulin Ratio 0.5 L (1.2-2.2) Urine Color (YELLOW) Urine Appearance (CLEAR) Urine pH (5.0-8.0) Ur Specific [place] (1.008-1.030) Urine Protein (NEGATIVE) mg/dL Urine Glucose (UA) (NEGATIVE) mg/dL Urine Ketones (NEGATIVE) mg/dL Urine Occult Blood (NEGATIVE) Urine Nitrite (NEGATIVE) Urine Bilirubin (NEGATIVE) Urine Urobilinogen (0.2-1.0) EU/dL Ur Leukocyte Esterase (NEGATIVE) Urine RBC (0-5) Urine WBC (0-5) Ur Epithelial Cells Amorphous Sediment Urine Bacteria Urine Mucus SARS CoV-2 RNA Rapid AIME 09/09/21 09/09/21 09/09/21 Range/Units 11:23 12:48 15:52 WBC (4.5-11.0) K/uL RBC (4.30-5.90) M/uL Hgb (12.0-15.0) g/dL Hct (40.0-54.0) % MCV (80-98) fL MCH (27-31) pg MCHC (32-36) % Plt Count (150-400) K/uL D-Dimer, Quantitative (0.0-500.0) ng/mL Sodium (140-148) mmol/L Potassium (3.6-5.2) mmol/L Chloride (100-108) mmol/L Carbon Dioxide (21-32) mmol/L Anion Gap (5.0-14.0) mmol/L BUN (7-18) mg/dL Creatinine (0.8-1.3) mg/dL Est Cr Clr Drug Dosing mL/min Estimated GFR (MDRD) (>60) Glucose (74-106) mg/dL Calcium (8.5-10.1) mg/dL Total Bilirubin (0.2-1.0) mg/dL AST (15-37) U/L ALT (12-78) U/L Alkaline Phosphatase (46-116) U/L C-Reactive Protein 20.68 H (0.0-0.3) mg/dL Total Protein (6.4-8.2) g/dL Albumin (3.4-5.0) g/dL Globulin (2.3-3.5) g/dL Albumin/Globulin Ratio (1.2-2.2) Urine Color Yellow (YELLOW) Urine Appearance Clear (CLEAR) Urine pH 6.0 (5.0-8.0) Ur Specific [place] 1.015 (1.008-1.030) Urine Protein 100 H (NEGATIVE) mg/dL Urine Glucose (UA) Negative (NEGATIVE) mg/dL Urine Ketones Trace H (NEGATIVE) mg/dL Urine Occult Blood Negative (NEGATIVE) Urine Nitrite Negative (NEGATIVE) Urine Bilirubin Small H (NEGATIVE) Urine Urobilinogen 0.2 (0.2-1.0) EU/dL Ur Leukocyte Esterase Negative (NEGATIVE) Urine RBC 0-5 (0-5) Urine WBC 0-5 (0-5) Ur Epithelial Cells Not seen Amorphous Sediment Not seen Urine Bacteria Many Urine Mucus Not seen SARS CoV-2 RNA Rapid AIME Negative Result Diagrams: 09/09/21 10:45 09/09/21 10:45 Imaging Impressions Last 24 hrs: CT Pulmonary Angiogram - images personally reviewed - no PE. There are diffuse patchy groundglass opacities consistent with covid. No mass or effusion. Sepsis Event Note - Evaluation Sepsis Screening Result: Possible Sepsis Risk - Focused Exam Vital Signs: Vital Signs Temp Pulse Resp BP Pulse Ox 09/09/21 15:49 96 144/80 H 09/09/21 14:23 36.7 C 67 30 H 140/56 L 90 L 09/09/21 13:37 58 L 142/63 H 90 L 09/09/21 11:24 36.7 C 56 L 24 H 112/79 92 L 09/09/21 10:04 36.8 C 109 H 28 H 126/77 81 L *Q Meaningful Use (ADM) - VTE Risk Assess *Q Each Risk Factor Represents 1 Point: Age 41 - 59 years, Obesity ( BMI > 25 kg/m2), Serious lung disease including pneumonia Total Score 1 Point Risk Factors: 3 Each Risk Factor Represents 2 Points: None Total Score 2 Point Risk Factors: 0 Each Risk Factor Represents 3 Points: None Total Score 3 Point Risk Factors: 0 Each Risk Factor Represents 5 Points: None Total Score 5 Point Risk Factors: 0 Venous Thromboembolism Risk Factor Score *Q: 3 - Problem List (1) Pneumonia due to COVID-19 virus SNOMED Code(s): 837461732815198460 ICD Code: U07.1 - COVID-19; J12.82 - PNEUMONIA DUE TO CORONAVIRUS DISEASE 2018 Status: Acute Current Visit: Yes (2) Acute respiratory failure with hypoxia SNOMED Code(s): 29514536, 351703711 ICD Code: J96.01 - ACUTE RESPIRATORY FAILURE WITH HYPOXIA Status: Acute Current Visit: Yes (3) Essential hypertension SNOMED Code(s): 73358571 ICD Code: I10 - ESSENTIAL (PRIMARY) HYPERTENSION Status: Chronic Current Visit: Yes Problem List Initiated/Reviewed/Updated: Yes Orders Last 24hrs: Active Orders 24 hr Category Date Time Status Patient Status Manage Transfer [TRANSFER] Routine ADT 09/09/21 16:16 Ordered HEPATIC FUNCTION PANEL,HFP [CHEM] DAILY Lab 09/10/21 14:00 Ordered HEPATIC FUNCTION PANEL,HFP [CHEM] DAILY Lab 09/11/21 14:00 Ordered HEPATIC FUNCTION PANEL,HFP [CHEM] DAILY Lab 09/12/21 14:00 Ordered HEPATIC FUNCTION PANEL,HFP [CHEM] DAILY Lab 09/13/21 14:00 Ordered PROCALCITONIN [CHEM] Stat Lab 09/09/21 15:52 Received Iopamidol [Isovue-370 (76%)] Med 09/09/21 12:45 Active 100 ml IV . DIRECTED Sodium Chloride 0.9% [Normal Saline] 100 ml Med 09/09/21 12:45 Active IV ASDIRECTED Sodium Chloride 0.9% [Saline Flush] Med 09/09/21 10:28 Active 10 ml FLUSH ASDIRECTED PRN Saline Lock Insert [OM.PC] Routine Oth 09/09/21 10:28 Ordered Resuscitation Status Routine Resus Stat 09/09/21 16:17 Ordered Medication Orders Sodium Chloride (Normal Saline) 100 mls @ 4 mls/sec IV ASDIRECTED YUSEF Last Admin: 09/09/21 12:58 Dose: 4 mls/sec Documented by: ELIZABET Iopamidol (Iopamidol 755 Mg/Ml 100 Ml Bottle) 100 ml IV . DIRECTED [facility] Last Admin: 09/09/21 12:58 Dose: 100 ml Documented by: ELIZABET Sodium Chloride (Sodium Chloride 0.9% 10 Ml Syringe) 10 ml FLUSH ASDIRECTED PRN PRN Reason: Keep Vein Open Last Admin: 09/09/21 12:47 Dose: 10 ml Documented by: SUSIE Assessment/Plan Comment:: ASSESSMENT AND PLAN - COVID-19 pneumonia-complicated by acute respiratory failure with hypoxia. High r isk for progression given his high blood pressure, high cholesterol and elevated BMI. Symptoms probably started about 8 days ago. Currently requiring 5 to 6 L of oxygen. Significant elevation of both D-dimer and CRP. -Dexamethasone 6 mg daily (day 1) -Remdesivir x5 days -Consider baricitinib if respiratory status declines further -Full dose enoxaparin (1 mg/kg every 12 hours) -Encourage prone positioning -Supplement oxygen, wean as able -Isolation precautions Essential hypertension-blood pressure acceptable at this time. -Plan to continue home medications Maintenance issues - -DVT prophylaxis-enoxaparin -GI prophylaxis-PPI -Nutrition-regular -Mckay catheter-not indicated CODE STATUS -full code Admission justification -this patient will be admitted for inpatient services and is medically appropriate meeting medical necessity for inpatient admission as outlined in my documentation. I reasonably expect the patient will require inpatient services that span a period time over 2 midnights. I reasonably expect this patient to be discharged or transferred within 96 hours [facility]. Disposition -I anticipate discharge home after the hospital stay Primary care physician - Lon Yen M.D. - Mortality Measure Prognosis:: Good
[2021-09-09] MEDS ORDERED: guaiFENesin/Dextromethorphan 100-10 MG/5 ML Soln 10 ML Cup PO PRN (16:41)
[2021-09-09] MEDS ORDERED: Albuterol 8 GM Inhaler INH PRN (16:41)
[2021-09-09] MEDS ORDERED: Acetaminophen 325 MG Tab PO PRN (16:41)
[2021-09-09] MEDS ORDERED: oxyCODONE 5 MG Tab PO PRN (16:41)
[2021-09-09] MEDS ORDERED: LORazepam 2 MG/ML SDV IVPUSH PRN (16:41)
[2021-09-09] MEDS ORDERED: Magnesium Hydroxide 400 MG/5 ML Susp 30 ML Cup PO PRN (16:41)
[2021-09-09] MEDS ORDERED: Loperamide 2 MG Cap PO PRN (16:41)
[2021-09-09] MEDS ORDERED: Melatonin 3 MG Tab PO PRN (16:41)
[2021-09-09] MEDS ORDERED: Ondansetron 4 MG Tab.DIS PO PRN (16:41)
[2021-09-09] MEDS ORDERED: Ondansetron 4 MG/2 ML SDV IV PRN (16:41)
[2021-09-09] MEDS ORDERED: Benzonatate 100 MG Cap PO PRN (16:41)
[2021-09-09] MEDS: Enoxaparin 100 MG/1 ML Syringe SUBCUT SCH (17:35)
[2021-09-09] MEDS: hydrALAZINE 25 MG Tab PO SCH (20:08)
[2021-09-09] MEDS: atorvaSTATin 10 MG Tab PO SCH (20:09)
[2021-09-09] MEDS: amLODIPine 5 MG Tab PO SCH (20:09)
[2021-09-09] MEDS: Lisinopril 20 MG Tab PO SCH (20:09)
[2021-09-09] MEDS: Colchicine 0.6 MG Tab PO SCH (20:10)
[2021-09-09] MEDS ORDERED: Non-Formulary Medication 1 Each (Amlodipine Besylate [Amlodipine Besylate] 10 MG Tablet) PO SCH (21:00)
[2021-09-10] MEDS: Enoxaparin 100 MG/1 ML Syringe SUBCUT SCH ×2 (05:23→17:09)
[2021-09-10] MEDS: Atenolol 25 MG Tab PO SCH (08:16)
[2021-09-10] MEDS: Colchicine 0.6 MG Tab PO SCH ×2 (08:16→20:58)
[2021-09-10] MEDS: Allopurinol 100 MG Tab PO SCH (08:16)
[2021-09-10] MEDS: hydrALAZINE 25 MG Tab PO SCH ×2 (08:17→13:01)
[2021-09-10] MEDS: amLODIPine 5 MG Tab PO SCH ×2 (08:17→20:58)
[2021-09-10] MEDS: Pantoprazole 40 MG Tab.CR PO SCH (08:17)
[2021-09-10] MEDS: Lisinopril 20 MG Tab PO SCH ×2 (08:17→20:58)
[2021-09-10] MEDS ORDERED: ALLOPURINOL 300 MG PO SCH (09:00)
[2021-09-10] MEDS ORDERED: ATENOLOL 100 MG PO SCH (09:00)
[2021-09-10] MEDS: cefTRIAXone 2 GM in Sodium Chloride 0.9% 50 ML IV SCH (09:28)
[2021-09-10] MEDS ORDERED: Doxycycline 100 MG in Sodium Chloride 0.9% 100 ML IV SCH (10:00)
[2021-09-10] MEDS ORDERED: diphenhydrAMINE 25 MG Cap PO PRN (11:28)
[2021-09-10] MEDS: Doxycycline 100 MG Cap PO SCH ×2 (11:42→20:50)
--- NOTE | 2021-09-10 13:28 | PCM.PN ---
- General Info Date of Service: 09/10/21 Subjective Update: No acute events overnight. Patient did have a rise in his supplemental oxygen requirements up to about 12 or 13 L. Symptomatically he feels much better today. He feels less short of breath. He has been able to get to the bathroom and back without significant difficulty though he does desaturate with activity. Cough is minimal. No abdominal pain or nausea. No fevers. Tolerating treatment so far. Procalcitonin level was higher again this morning so a ntibiotics were initiated. Functional Status: Reports: Tolerating Diet - Review of Systems General: Denies: Fever Pulmonary: Reports: Shortness of Breath - Patient Data Vitals - Most Recent: Last Vital Signs Temp 36.6 C 09/10/21 11:00 Pulse 82 09/10/21 11:00 Resp 18 09/10/21 11:00 BP 101/63 09/10/21 11:00 Pulse Ox 94 L 09/10/21 12:13 Weight - Most Recent: 103.419 kg I&O - Last 24 Hours: Intake & Output 09/09/21 09/10/21 09/10/21 22:59 06:59 14:59 Intake Total 800 Balance 800 Lab Results Last 24 Hours: Laboratory Results - last 24 hr 09/09/21 09/09/21 09/10/21 Range/Units 15:52 15:52 06:00 WBC 10.9 (4.5-11.0) K/uL RBC 5.93 H (4.30-5.90) M/uL Hgb 15.6 H (12.0-15.0) g/dL Hct 45.7 (40.0-54.0) % MCV 77 L (80-98) fL MCH 26 L (27-31) pg MCHC 34 (32-36) % Plt Count 305 (150-400) K/uL D-Dimer, Quantitative (0.0-500.0) ng/mL Sodium (140-148) mmol/L Potassium (3.6-5.2) mmol/L Chloride (100-108) mmol/L Carbon Dioxide (21-32) mmol/L Anion Gap (5.0-14.0) mmol/L BUN (7-18) mg/dL Creatinine (0.8-1.3) mg/dL Est Cr Clr Drug Dosing mL/min Estimated GFR (MDRD) (>60) Glucose (74-106) mg/dL Calcium (8.5-10.1) mg/dL Total Bilirubin (0.2-1.0) mg/dL AST (15-37) U/L ALT (12-78) U/L Alkaline Phosphatase (46-116) U/L C-Reactive Protein 20.68 H (0.0-0.3) mg/dL Total Protein (6.4-8.2) g/dL Albumin (3.4-5.0) g/dL Globulin (2.3-3.5) g/dL Albumin/Globulin Ratio (1.2-2.2) Procalcitonin 0.37 ng/mL 09/10/21 09/10/21 09/10/21 Range/Units 06:00 06:00 06:00 WBC (4.5-11.0) K/uL RBC (4.30-5.90) M/uL Hgb (12.0-15.0) g/dL Hct (40.0-54.0) % MCV (80-98) fL MCH (27-31) pg MCHC (32-36) % Plt Count (150-400) K/uL D-Dimer, Quantitative > 11057.00 H (0.0-500.0) ng/mL Sodium 135 L (140-148) mmol/L Potassium 4.0 (3.6-5.2) mmol/L Chloride 99 L (100-108) mmol/L Carbon Dioxide 22 (21-32) mmol/L Anion Gap 18.0 H (5.0-14.0) mmol/L BUN 39 H (7-18) mg/dL Creatinine 1.7 H (0.8-1.3) mg/dL Est Cr Clr Drug Dosing 52.29 mL/min Estimated GFR (MDRD) 51 L (>60) Glucose 121 H (74-106) mg/dL Calcium 8.7 (8.5-10.1) mg/dL Total Bilirubin 0.9 (0.2-1.0) mg/dL AST 115 H (15-37) U/L ALT 98 H (12-78) U/L Alkaline Phosphatase 131 H (46-116) U/L C-Reactive Protein (0.0-0.3) mg/dL Total Protein 8.0 (6.4-8.2) g/dL Albumin 2.8 L (3.4-5.0) g/dL Globulin 5.2 H (2.3-3.5) g/dL Albumin/Globulin Ratio 0.5 L (1.2-2.2) Procalcitonin 0.44 ng/mL Med Orders - Current: Current Medications Acetaminophen (Acetaminophen 325 Mg Tab) 650 mg PO Q4H PRN PRN Reason: Pain (Mild 1-3)/fever Albuterol (Albuterol 8 Gm Inhaler) 0 gm INH Q6H PRN PRN Reason: Shortness of Breath Allopurinol (Allopurinol 100 Mg Tab) 300 mg PO DAILY [facility] Last Admin: 09/10/21 08:16 Dose: 300 mg Documented by: Amlodipine Besylate (Amlodipine 5 Mg Tab) 10 mg PO BID [facility] Last Admin: 09/10/21 08:17 Dose: 10 mg Documented by: Atenolol (Atenolol 25 Mg Tab) 100 mg PO DAILY [facility] Last Admin: 09/10/21 08:16 Dose: 100 mg Documented by: Atorvastatin Calcium (Atorvastatin 10 Mg Tab) 10 mg PO BEDTIME [facility] Last Admin: 09/09/21 20:09 Dose: 10 mg Documented by: Baricitinib (Baricitinib 2 Mg Tab) 2 mg PO DAILY [facility] Stop: 09/23/21 09:01 Last Admin: 09/10/21 11:00 Dose: 2 mg Documented by: Benzonatate (Benzonatate 100 Mg Cap) 100 mg PO TID PRN PRN Reason: Cough Colchicine (Colchicine 0.6 Mg Tab) 0.6 mg PO BID [facility] Last Admin: 09/10/21 08:16 Dose: 0.6 mg Documented by: Dexamethasone (Dexamethasone 4 Mg/Ml Sdv) 6 mg IVPUSH Q24H [facility] Diphenhydramine HCl (Diphenhydramine 25 Mg Cap) 25 mg PO Q4H PRN PRN Reason: Itching Last Admin: 09/10/21 11:41 Dose: 25 mg Documented by: Doxycycline Hyclate (Doxycycline 100 Mg Cap) 100 mg PO BID [facility] Last Admin: 09/10/21 11:42 Dose: 100 mg Documented by: Enoxaparin Sodium (Enoxaparin 100 Mg/1 Ml Syringe) 100 mg SUBCUT Q12H [facility] Last Admin: 09/10/21 05:23 Dose: 100 mg Documented by: Guaifenesin/Dextromethorphan (Guaifenesin/Dextromethorphan 100-10 Mg/5 Ml Soln 10 Ml Cup) 10 ml PO Q4H PRN PRN Reason: Cough Hydralazine HCl (Hydralazine 25 Mg Tab) 25 mg PO TID [facility] Last Admin: 09/10/21 13:01 Dose: Not Given Documented by: Remdesivir 100 mg/ Sodium (Chloride) 100 mls @ 100 mls/hr IV Q24H [facility] Stop: 09/13/21 14:59 Ceftriaxone Sodium 2 gm/ (Sodium Chloride) 50 mls @ 100 mls/hr IV Q24H [facility] Last Admin: 09/10/21 09:28 Dose: 100 mls/hr Documented by: Lisinopril (Lisinopril 20 Mg Tab) 40 mg PO BID [facility] Last Admin: 09/10/21 08:17 Dose: 40 mg Documented by: Loperamide HCl (Loperamide 2 Mg Cap) 2 mg PO Q4H PRN PRN Reason: Diarrhea Lorazepam (Lorazepam 2 Mg/Ml Sdv) 0.5 mg IVPUSH Q4H PRN PRN Reason: Nausea/Vomiting Magnesium Hydroxide (Magnesium Hydroxide 400 Mg/5 Ml Susp 30 Ml Cup) 30 ml PO Q12H PRN PRN Reason: Constipation Melatonin (Melatonin 3 Mg Tab) 9 mg PO BEDTIME PRN PRN Reason: Sleep Nystatin (Nystatin Topical Powder 15 Gm Bottle) 1 gm TOP TID [facility] Ondansetron HCl (Ondansetron 4 Mg/2 Ml Sdv) 4 mg IV Q6H PRN PRN Reason: Nausea/Vomiting Ondansetron HCl (Ondansetron 4 Mg Tab.Dis) 4 mg PO Q6H PRN PRN Reason: Nausea able to take PO Oxycodone HCl (Oxycodone 5 Mg Tab) 5 - 10 mg PO Q4H PRN PRN Reason: Pain Pantoprazole Sodium (Pantoprazole 40 Mg Tab.Cr) 40 mg PO ACBREAKFAST [facility] Last Admin: 09/10/21 08:17 Dose: 40 mg Documented by: Senna/Docusate Sodium (Docusate Sodium/Sennosides 50-8.6 Mg Tab) 1 tab PO BID PRN PRN Reason: Constipation Sodium Chloride (Sodium Chloride 0.9% 10 Ml Syringe) 10 ml FLUSH ASDIRECTED PRN PRN Reason: Keep Vein Open Last Admin: 09/09/21 12:47 Dose: 10 ml Documented by: Discontinued Medications Dexamethasone (Dexamethasone 4 Mg/Ml Sdv) 6 mg IVPUSH ONETIME ONE Stop: 09/09/21 13:51 Last Admin: 09/09/21 15:00 Dose: 6 mg Documented by: Sodium Chloride (Normal Saline) 100 mls @ 4 mls/sec IV ASDIRECTED [facility] Last Admin: 09/09/21 12:58 Dose: 4 mls/sec Documented by: Remdesivir 200 mg/ Sodium (Chloride) 250 mls @ 250 mls/hr IV ONETIME ONE Stop: 09/09/21 15:59 Last Admin: 09/09/21 15:01 Dose: 250 mls/hr Documented by: Doxycycline Hyclate 100 mg/ (Sodium Chloride) 100 mls @ 100 mls/hr IV Q12H [facility] Last Admin: 09/10/21 10:37 Dose: 100 mls/hr Documented by: Iopamidol (Iopamidol 755 Mg/Ml 100 Ml Bottle) 100 ml IV . DIRECTED [facility] Last Admin: 09/09/21 12:58 Dose: 100 ml Documented by: Sodium Chloride (Sodium Chloride 0.9% 10 Ml Syringe) 10 ml FLUSH ONETIME ONE Stop: 09/09/21 12:46 Last Admin: 09/09/21 12:58 Dose: 10 ml Documented by: - Exam Quality Assessment: Supplemental Oxygen General: Alert, Oriented, Cooperative, No Acute Distress Lungs: Normal Respiratory Effort. No: Wheezing GI/Abdominal Exam: Soft, No Distention Extremities: No Pedal Edema. No: Increased Warmth Psy/Mental Status: Alert, Normal Affect - Patient Data Lab Results Last 24 hrs: Laboratory Results - last 24 hr 09/09/21 09/09/21 09/10/21 Range/Units 15:52 15:52 06:00 WBC 10.9 (4.5-11.0) K/uL RBC 5.93 H (4.30-5.90) M/uL Hgb 15.6 H (12.0-15.0) g/dL Hct 45.7 (40.0-54.0) % MCV 77 L (80-98) fL MCH 26 L (27-31) pg MCHC 34 (32-36) % Plt Count 305 (150-400) K/uL D-Dimer, Quantitative (0.0-500.0) ng/mL Sodium (140-148) mmol/L Potassium (3.6-5.2) mmol/L Chloride (100-108) mmol/L Carbon Dioxide (21-32) mmol/L Anion Gap (5.0-14.0) mmol/L BUN (7-18) mg/dL Creatinine (0.8-1.3) mg/dL Est Cr Clr Drug Dosing mL/min Estimated GFR (MDRD) (>60) Glucose (74-106) mg/dL Calcium (8.5-10.1) mg/dL Total Bilirubin (0.2-1.0) mg/dL AST (15-37) U/L ALT (12-78) U/L Alkaline Phosphatase (46-116) U/L C-Reactive Protein 20.68 H (0.0-0.3) mg/dL Total Protein (6.4-8.2) g/dL Albumin (3.4-5.0) g/dL Globulin (2.3-3.5) g/dL Albumin/Globulin Ratio (1.2-2.2) Procalcitonin 0.37 ng/mL 09/10/21 09/10/21 09/10/21 Range/Units 06:00 06:00 06:00 WBC (4.5-11.0) K/uL RBC (4.30-5.90) M/uL Hgb (12.0-15.0) g/dL Hct (40.0-54.0) % MCV (80-98) fL MCH (27-31) pg MCHC (32-36) % Plt Count (150-400) K/uL D-Dimer, Quantitative > 88308.00 H (0.0-500.0) ng/mL Sodium 135 L (140-148) mmol/L Potassium 4.0 (3.6-5.2) mmol/L Chloride 99 L (100-108) mmol/L Carbon Dioxide 22 (21-32) mmol/L Anion Gap 18.0 H (5.0-14.0) mmol/L BUN 39 H (7-18) mg/dL Creatinine 1.7 H (0.8-1.3) mg/dL Est Cr Clr Drug Dosing 52.29 mL/min Estimated GFR (MDRD) 51 L (>60) Glucose 121 H (74-106) mg/dL Calcium 8.7 (8.5-10.1) mg/dL Total Bilirubin 0.9 (0.2-1.0) mg/dL AST 115 H (15-37) U/L ALT 98 H (12-78) U/L Alkaline Phosphatase 131 H (46-116) U/L C-Reactive Protein (0.0-0.3) mg/dL Total Protein 8.0 (6.4-8.2) g/dL Albumin 2.8 L (3.4-5.0) g/dL Globulin 5.2 H (2.3-3.5) g/dL Albumin/Globulin Ratio 0.5 L (1.2-2.2) Procalcitonin 0.44 ng/mL Result Diagrams: 09/10/21 06:00 09/10/21 06:00 Sepsis Event Note - Evaluation Sepsis Screening Result: No Definite Risk - Focused Exam Vital Signs: Vital Signs Temp Pulse Pulse Resp BP BP Pulse Ox 09/10/21 12:13 94 L 09/10/21 11:00 36.6 C 82 18 101/63 94 L 09/10/21 08:17 117/91 H 09/10/21 08:16 99 117/91 H 09/10/21 07:37 36.2 C 99 18 117/91 H 92 L 09/10/21 07:26 90 L 09/10/21 02:18 36.6 C 90 20 107/57 L 94 L 09/10/21 02:00 94 L - Problem List & Annotations (1) Pneumonia due to COVID-19 virus SNOMED Code(s): 761053346897737751 Code(s): U07.1 - COVID-19; J12.82 - PNEUMONIA DUE TO CORONAVIRUS DISEASE 2019 Status: Acute Current Visit: Yes (2) Acute respiratory failure with hypoxia SNOMED Code(s): 51475172, 740200387 Code(s): J96.01 - ACUTE RESPIRATORY FAILURE WITH HYPOXIA Status: Acute Current Visit: Yes (3) Essential hypertension SNOMED Code(s): 43732046 Code(s): I10 - ESSENTIAL (PRIMARY) HYPERTENSION Status: Chronic Current Visit: Yes - Problem List Review Problem List Initiated/Reviewed/Updated: Yes - My Orders Last 24 Hours: My Active Orders 09/09/21 16:17 Resuscitation Status Routine 09/09/21 16:41 Acetaminophen [TylenoL] 650 mg PO Q4H PRN Albuterol [Ventolin HFA] 0 gm INH Q6H PRN Benzonatate [Tessalon Perles] 100 mg PO TID PRN Dextromethorphan/guaiFENesin [Robitussin DM] 10 ml PO Q4H PRN Docusate Sodium/Sennosides [Senna Plus] 1 tab PO BID PRN LORazepam [Ativan] 0.5 mg IVPUSH Q4H PRN Loperamide [Imodium] 2 mg PO Q4H PRN Magnesium Hydroxide [Milk of Magnesia] 30 ml PO Q12H PRN Melatonin 9 mg PO BEDTIME PRN Ondansetron [Zofran ODT] 4 mg PO Q6H PRN Ondansetron [Zofran] 4 mg IV Q6H PRN oxyCODONE 5 - 10 mg PO Q4H PRN 09/09/21 16:41 Patient Status [ADT] Routine Intake and Output [RC] QSHIFT Notify Provider Vital Signs [RC] ASDIRECTED Pulse Oximetry [RC] CONTINUOUS RT Aerosol Therapy [RC] ASDIRECTED RT Post Treatment Assessment [RC] Click to Edit Up With Assistance [RC] ASDIRECTED Vital Signs [RC] Q4H Isolation [COMM] Routine 09/09/21 Dinner Regular Diet [DIET] 09/09/21 18:00 Enoxaparin [Lovenox] 100 mg SUBCUT Q12H 09/09/21 21:00 Colchicine [Colcrys] 0.6 mg PO BID amLODIPine [Norvasc] 10 mg PO BID atorvaSTATin [Lipitor] 10 mg PO BEDTIME hydrALAZINE [Apresoline] 25 mg PO TID lisinopriL [Prinivil] 40 mg PO BID 09/10/21 07:30 Pantoprazole [ProTONIX] 40 mg PO ACBREAKFAST 09/10/21 09:00 allopurinoL [Zyloprim] 300 mg PO DAILY atenoloL [Tenormin] 100 mg PO DAILY cefTRIAXone [Rocephin] 2 gm Sodium Chloride 0.9% [Normal Saline AdvBag] 50 ml IV Q24H 09/10/21 10:30 Baricitinib [Olumiant] 2 mg PO DAILY 09/10/21 11:28 diphenhydrAMINE [Benadryl] 25 mg PO Q4H PRN 09/10/21 11:30 Doxycycline [Vibramycin] 100 mg PO BID 09/10/21 14:00 Nystatin [Nystop] 1 gm TOP TID Remdesivir 100 mg Sodium Chloride 0.9% [Normal Saline] 100 ml IV Q24H dexAMETHasone [Decadron] 6 mg IVPUSH Q24H 09/11/21 05:00 CBC W/O DIFF,HEMOGRAM [HEME] Timed (1) COMPREHENSIVE METABOLIC PN,CMP [CHEM] Timed CRP [C-REACTIVE PROTEIN] [CHEM] Timed D-DIMER QUANTITATIVE [COAG] Timed - Plan Plan:: ASSESSMENT AND PLAN - COVID-19 pneumonia-complicated by acute respiratory failure with hypoxia. Supplemental oxygen requirements have increased overnight. Procalcitonin level is higher today than yesterday. D-dimer still greater than 50,000. -Dexamethasone 6 mg daily (day 2) -Remdesivir x5 days -Start baricitinib (day 1) -Empiric antibiotics x5 to 7 days with elevated procalcitonin -Full dose enoxaparin (1 mg/kg every 12 hours) -Encourage prone positioning -Supplement oxygen, wean as able -Isolation precautions (sx onset about 08/31) Essential hypertension-blood pressure on the low side at this time. -Discontinue hydralazine but continue other home medications Maintenance issues - -DVT prophylaxis-enoxaparin -GI prophylaxis-PPI -Nutrition-regular -Mckay catheter-not indicated CODE STATUS -full code Admission justification -this patient will be admitted for inpatient services and is medically appropriate meeting medical necessity for inpatient admission as outlined in my documentation. I reasonably expect the patient will require inpatient services that span a period time over 2 midnights. I reasonably expect this patient to be discharged or transferred within 96 hours [facility]. Disposition -I anticipate discharge home after the hospital stay Primary care physician - Lon Yen M.D.
[2021-09-10] MEDS ORDERED: Nystatin Topical Powder 15 GM Bottle TOP SCH (14:00)
[2021-09-10] MEDS: Dexamethasone 4 MG/ML SDV IVPUSH SCH (14:07)
[2021-09-10] MEDS: Nystatin Topical Powder 15 GM Bottle TOP SCH ×2 (14:07→20:49)
[2021-09-10] MEDS: REMDESIVIR 100 MG in Sodium Chloride 0.9% 100 ML IV SCH (14:07)
[2021-09-10] MEDS: atorvaSTATin 10 MG Tab PO SCH (20:50)
[2021-09-10] MEDS ORDERED: Sodium Chloride 0.9% 500 ML IV ONE (20:56)
[2021-09-10] MEDS ORDERED: Calcium Carbonate 500 MG Tab.Chew PO PRN (22:47)
[2021-09-11] MEDS: Enoxaparin 100 MG/1 ML Syringe SUBCUT SCH ×2 (05:54→17:32)
[2021-09-11] MEDS: Pantoprazole 40 MG Tab.CR PO SCH (07:44)
[2021-09-11] MEDS: Allopurinol 100 MG Tab PO SCH (09:43)
[2021-09-11] MEDS: Colchicine 0.6 MG Tab PO SCH ×2 (09:43→20:41)
[2021-09-11] MEDS: cefTRIAXone 2 GM in Sodium Chloride 0.9% 50 ML IV SCH (09:44)
[2021-09-11] MEDS: Atenolol 25 MG Tab PO SCH (09:44)
[2021-09-11] MEDS: Doxycycline 100 MG Cap PO SCH ×2 (09:44→20:42)
[2021-09-11] MEDS: Nystatin Topical Powder 15 GM Bottle TOP SCH ×3 (09:45→20:42)
[2021-09-11] MEDS: Lisinopril 20 MG Tab PO SCH (10:31)
[2021-09-11] MEDS: amLODIPine 5 MG Tab PO SCH (10:31)
--- NOTE | 2021-09-11 12:32 | PCM.PN ---
- General Info Date of Service: 09/11/21 Subjective Update: No acute events overnight. Respiratory status stable. He is still requiring about 12 L of oxygen. Symptomatically he feels well with no significant dyspnea. Occasionally has a cough. Appetite has been good. Tolerating walks to the bathroom without difficulty. No nausea. Both D-dimer and CRP have improved. Blood pressure has been on the low side so we are holding his antihypertensives. Functional Status: Reports: Pain Controlled, Tolerating Diet - Review of Systems Pulmonary: Denies: Shortness of Breath - Patient Data Vitals - Most Recent: Last Vital Signs Temp 36.2 C 09/11/21 11:00 Pulse 80 09/11/21 11:00 Resp 20 09/11/21 11:00 BP 96/68 09/11/21 11:00 Pulse Ox 96 09/11/21 12:27 Weight - Most Recent: 103.419 kg I&O - Last 24 Hours: Intake & Output 09/10/21 09/11/21 09/11/21 22:59 06:59 14:59 Intake Total 600 1200 395 Balance 600 1200 395 Lab Results Last 24 Hours: Laboratory Results - last 24 hr 09/11/21 09/11/21 09/11/21 Range/Units 04:52 04:52 04:52 WBC 15.1 H (4.5-11.0) K/uL RBC 5.74 (4.30-5.90) M/uL Hgb 15.2 H (12.0-15.0) g/dL Hct 44.3 (40.0-54.0) % MCV 77 L (80-98) fL MCH 27 (27-31) pg MCHC 34 (32-36) % Plt Count 413 H (150-400) K/uL D-Dimer, Quantitative 43356.82 H (0.0-500.0) ng/mL Sodium 137 L (140-148) mmol/L Potassium 3.8 (3.6-5.2) mmol/L Chloride 102 (100-108) mmol/L Carbon Dioxide 21 (21-32) mmol/L Anion Gap 17.8 H (5.0-14.0) mmol/L BUN 47 H (7-18) mg/dL Creatinine 1.7 H (0.8-1.3) mg/dL Est Cr Clr Drug Dosing 52.29 mL/min Estimated GFR (MDRD) 51 L (>60) Glucose 142 H (74-106) mg/dL Calcium 8.1 L (8.5-10.1) mg/dL Total Bilirubin 0.5 (0.2-1.0) mg/dL AST 77 H (15-37) U/L ALT 85 H (12-78) U/L Alkaline Phosphatase 120 H (46-116) U/L C-Reactive Protein 7.26 H (0.0-0.3) mg/dL Total Protein 6.9 (6.4-8.2) g/dL Albumin 2.5 L (3.4-5.0) g/dL Globulin 4.4 H (2.3-3.5) g/dL Albumin/Globulin Ratio 0.6 L (1.2-2.2) Med Orders - Current: Current Medications Acetaminophen (Acetaminophen 325 Mg Tab) 650 mg PO Q4H PRN PRN Reason: Pain (Mild 1-3)/fever Albuterol (Albuterol 8 Gm Inhaler) 0 gm INH Q6H PRN PRN Reason: Shortness of Breath Allopurinol (Allopurinol 100 Mg Tab) 300 mg PO DAILY [facility] Last Admin: 09/11/21 09:43 Dose: 300 mg Documented by: Amlodipine Besylate (Amlodipine 5 Mg Tab) 10 mg PO BID [facility] Last Admin: 09/11/21 10:31 Dose: Not Given Documented by: Atenolol (Atenolol 25 Mg Tab) 100 mg PO DAILY [facility] Last Admin: 09/11/21 09:44 Dose: 100 mg Documented by: Atorvastatin Calcium (Atorvastatin 10 Mg Tab) 10 mg PO BEDTIME [facility] Last Admin: 09/10/21 20:50 Dose: 10 mg Documented by: Baricitinib (Baricitinib 2 Mg Tab) 2 mg PO DAILY [facility] Stop: 09/23/21 09:01 Last Admin: 09/11/21 09:43 Dose: 2 mg Documented by: Benzonatate (Benzonatate 100 Mg Cap) 100 mg PO TID PRN PRN Reason: Cough Calcium Carbonate/Glycine (Calcium Carbonate 500 Mg Tab.Chew) 500 mg PO Q2H PRN PRN Reason: Indigestion Last Admin: 09/10/21 23:04 Dose: 500 mg Documented by: Colchicine (Colchicine 0.6 Mg Tab) 0.6 mg PO BID [facility] Last Admin: 09/11/21 09:43 Dose: 0.6 mg Documented by: Dexamethasone (Dexamethasone 4 Mg/Ml Sdv) 6 mg IVPUSH Q24H [facility] Last Admin: 09/10/21 14:07 Dose: 6 mg Documented by: Diphenhydramine HCl (Diphenhydramine 25 Mg Cap) 25 mg PO Q4H PRN PRN Reason: Itching Last Admin: 09/10/21 11:41 Dose: 25 mg Documented by: Doxycycline Hyclate (Doxycycline 100 Mg Cap) 100 mg PO BID [facility] Last Admin: 09/11/21 09:44 Dose: 100 mg Documented by: Enoxaparin Sodium (Enoxaparin 100 Mg/1 Ml Syringe) 100 mg SUBCUT Q12H [facility] Last Admin: 09/11/21 05:54 Dose: 100 mg Documented by: Guaifenesin/Dextromethorphan (Guaifenesin/Dextromethorphan 100-10 Mg/5 Ml Soln 10 Ml Cup) 10 ml PO Q4H PRN PRN Reason: Cough Remdesivir 100 mg/ Sodium (Chloride) 100 mls @ 100 mls/hr IV Q24H [facility] Stop: 09/13/21 14:59 Last Admin: 09/10/21 14:07 Dose: 100 mls/hr Documented by: Ceftriaxone Sodium 2 gm/ (Sodium Chloride) 50 mls @ 100 mls/hr IV Q24H [facility] Last Admin: 09/11/21 09:44 Dose: 100 mls/hr Documented by: Lisinopril (Lisinopril 20 Mg Tab) 40 mg PO BID [facility] Last Admin: 09/11/21 10:31 Dose: Not Given Documented by: Loperamide HCl (Loperamide 2 Mg Cap) 2 mg PO Q4H PRN PRN Reason: Diarrhea Lorazepam (Lorazepam 2 Mg/Ml Sdv) 0.5 mg IVPUSH Q4H PRN PRN Reason: Nausea/Vomiting Magnesium Hydroxide (Magnesium Hydroxide 400 Mg/5 Ml Susp 30 Ml Cup) 30 ml PO Q12H PRN PRN Reason: Constipation Melatonin (Melatonin 3 Mg Tab) 9 mg PO BEDTIME PRN PRN Reason: Sleep Nystatin (Nystatin Topical Powder 15 Gm Bottle) 1 gm TOP TID [facility] Last Admin: 09/11/21 09:45 Dose: 1 applic Documented by: Ondansetron HCl (Ondansetron 4 Mg/2 Ml Sdv) 4 mg IV Q6H PRN PRN Reason: Nausea/Vomiting Ondansetron HCl (Ondansetron 4 Mg Tab.Dis) 4 mg PO Q6H PRN PRN Reason: Nausea able to take PO Oxycodone HCl (Oxycodone 5 Mg Tab) 5 - 10 mg PO Q4H PRN PRN Reason: Pain Pantoprazole Sodium (Pantoprazole 40 Mg Tab.Cr) 40 mg PO ACBREAKFAST [facility] Last Admin: 09/11/21 07:44 Dose: 40 mg Documented by: Senna/Docusate Sodium (Docusate Sodium/Sennosides 50-8.6 Mg Tab) 1 tab PO BID PRN PRN Reason: Constipation Sodium Chloride (Sodium Chloride 0.9% 10 Ml Syringe) 10 ml FLUSH ASDIRECTED PRN PRN Reason: Keep Vein Open Last Admin: 09/09/21 12:47 Dose: 10 ml Documented by: Discontinued Medications Dexamethasone (Dexamethasone 4 Mg/Ml Sdv) 6 mg IVPUSH ONETIME ONE Stop: 09/09/21 13:51 Last Admin: 09/09/21 15:00 Dose: 6 mg Documented by: Hydralazine HCl (Hydralazine 25 Mg Tab) 25 mg PO TID [facility] Last Admin: 09/10/21 13:01 Dose: Not Given Documented by: Sodium Chloride (Normal Saline) 100 mls @ 4 mls/sec IV ASDIRECTED [facility] Last Admin: 09/09/21 12:58 Dose: 4 mls/sec Documented by: Remdesivir 200 mg/ Sodium (Chloride) 250 mls @ 250 mls/hr IV ONETIME ONE Stop: 09/09/21 15:59 Last Admin: 09/09/21 15:01 Dose: 250 mls/hr Documented by: Doxycycline Hyclate 100 mg/ (Sodium Chloride) 100 mls @ 100 mls/hr IV Q12H [facility] Last Admin: 09/10/21 10:37 Dose: 100 mls/hr Documented by: Sodium Chloride (Normal Saline) 500 mls @ 500 mls/hr IV .BOLUS ONE Stop: 09/10/21 21:55 Last Admin: 09/10/21 21:12 Dose: 500 mls/hr Documented by: Iopamidol (Iopamidol 755 Mg/Ml 100 Ml Bottle) 100 ml IV . DIRECTED [facility] Last Admin: 09/09/21 12:58 Dose: 100 ml Documented by: Nystatin (Nystatin Topical Powder 15 Gm Bottle) 1 gm TOP TID [facility] Sodium Chloride (Sodium Chloride 0.9% 10 Ml Syringe) 10 ml FLUSH ONETIME ONE Stop: 09/09/21 12:46 Last Admin: 09/09/21 12:58 Dose: 10 ml Documented by: - Exam Quality Assessment: Supplemental Oxygen General: Alert, Oriented, Cooperative, No Acute Distress Lungs: Normal Respiratory Effort. No: Wheezing GI/Abdominal Exam: Soft, No Distention Extremities: No Pedal Edema. No: Increased Warmth Psy/Mental Status: Alert, Normal Affect - Patient Data Lab Results Last 24 hrs: Laboratory Results - last 24 hr 09/11/21 09/11/21 09/11/21 Range/Units 04:52 04:52 04:52 WBC 15.1 H (4.5-11.0) K/uL RBC 5.74 (4.30-5.90) M/uL Hgb 15.2 H (12.0-15.0) g/dL Hct 44.3 (40.0-54.0) % MCV 77 L (80-98) fL MCH 27 (27-31) pg MCHC 34 (32-36) % Plt Count 413 H (150-400) K/uL D-Dimer, Quantitative 09402.82 H (0.0-500.0) ng/mL Sodium 137 L (140-148) mmol/L Potassium 3.8 (3.6-5.2) mmol/L Chloride 102 (100-108) mmol/L Carbon Dioxide 21 (21-32) mmol/L Anion Gap 17.8 H (5.0-14.0) mmol/L BUN 47 H (7-18) mg/dL Creatinine 1.7 H (0.8-1.3) mg/dL Est Cr Clr Drug Dosing 52.29 mL/min Estimated GFR (MDRD) 51 L (>60) Glucose 142 H (74-106) mg/dL Calcium 8.1 L (8.5-10.1) mg/dL Total Bilirubin 0.5 (0.2-1.0) mg/dL AST 77 H (15-37) U/L ALT 85 H (12-78) U/L Alkaline Phosphatase 120 H (46-116) U/L C-Reactive Protein 7.26 H (0.0-0.3) mg/dL Total Protein 6.9 (6.4-8.2) g/dL Albumin 2.5 L (3.4-5.0) g/dL Globulin 4.4 H (2.3-3.5) g/dL Albumin/Globulin Ratio 0.6 L (1.2-2.2) Result Diagrams: 09/11/21 04:52 09/11/21 04:52 Sepsis Event Note - Evaluation Sepsis Screening Result: Sepsis Risk - Focused Exam Vital Signs: Vital Signs Temp Pulse Pulse Resp BP BP BP 09/11/21 12:27 09/11/21 11:00 36.2 C 80 20 96/68 09/11/21 09:44 74 100/70 09/11/21 07:46 09/11/21 07:38 35.6 C L 74 22 H 100/70 09/11/21 03:00 36.0 C L 86 18 110/74 09/11/21 01:00 Pulse Ox 09/11/21 12:27 96 09/11/21 11:00 99 09/11/21 09:44 09/11/21 07:46 88 L 09/11/21 07:38 94 L 09/11/21 03:00 93 L 09/11/21 01:00 97 - Problem List & Annotations (1) Pneumonia due to COVID-19 virus SNOMED Code(s): 338799500861648040 Code(s): U07.1 - COVID-19; J12.82 - PNEUMONIA DUE TO CORONAVIRUS DISEASE 2019 Status: Acute Current Visit: Yes (2) Acute respiratory failure with hypoxia SNOMED Code(s): 31183429, 113436540 Code(s): J96.01 - ACUTE RESPIRATORY FAILURE WITH HYPOXIA Status: Acute Current Visit: Yes (3) Essential hypertension SNOMED Code(s): 37704666 Code(s): I10 - ESSENTIAL (PRIMARY) HYPERTENSION Status: Chronic Current Visit: Yes - Problem List Review Problem List Initiated/Reviewed/Updated: Yes - My Orders Last 24 Hours: My Active Orders 09/10/21 14:00 Nystatin [Nystop] 1 gm TOP TID Remdesivir 100 mg Sodium Chloride 0.9% [Normal Saline] 100 ml IV Q24H dexAMETHasone [Decadron] 6 mg IVPUSH Q24H 09/12/21 05:00 CBC W/O DIFF,HEMOGRAM [HEME] Timed (1) COMPREHENSIVE METABOLIC PN,CMP [CHEM] Timed 09/14/21 09:00 amLODIPine [Norvasc] 10 mg PO DAILY lisinopriL [Prinivil] 40 mg PO DAILY - Plan Plan:: ASSESSMENT AND PLAN - COVID-19 pneumonia-complicated by acute respiratory failure with hypoxia. Respiratory status stable but symptoms have improved. Still requiring a fair amount of high flow nasal cannula. Tolerating treatment. Clinically improving. -Dexamethasone 6 mg daily (day 3) -Remdesivir x5 days -Continue baricitinib (day 2) -Empiric antibiotics x5 to 7 days with elevated procalcitonin -Full dose enoxaparin (1 mg/kg every 12 hours) -Encourage prone positioning -Supplement oxygen, wean as able -Isolation precautions (sx onset about 08/31) Essential hypertension-blood pressure on the low side at this time. -Discontinue hydralazine -Hold other home medications until blood pressure rises Maintenance issues - -DVT prophylaxis-enoxaparin -GI prophylaxis-PPI -Nutrition-regular Disposition -I anticipate discharge home after the hospital stay Primary care physician - Lon Yen M.D.
[2021-09-11] MEDS: Carbamide Peroxide 6.5% Otic Soln 15 ML Bottle EARBOTH SCH ×2 (14:38→20:42)
[2021-09-11] MEDS: Dexamethasone 4 MG/ML SDV IVPUSH SCH (14:38)
[2021-09-11] MEDS: REMDESIVIR 100 MG in Sodium Chloride 0.9% 100 ML IV SCH (14:39)
[2021-09-11] MEDS: atorvaSTATin 10 MG Tab PO SCH (20:42)
[2021-09-12] MEDS: Enoxaparin 100 MG/1 ML Syringe SUBCUT SCH ×2 (06:37→17:08)
[2021-09-12] MEDS: Pantoprazole 40 MG Tab.CR PO SCH (07:33)
[2021-09-12] MEDS: Colchicine 0.6 MG Tab PO SCH ×2 (09:17→21:01)
[2021-09-12] MEDS: Carbamide Peroxide 6.5% Otic Soln 15 ML Bottle EARBOTH SCH ×2 (09:18→21:01)
[2021-09-12] MEDS: Nystatin Topical Powder 15 GM Bottle TOP SCH ×3 (09:18→21:02)
[2021-09-12] MEDS: Allopurinol 100 MG Tab PO SCH (09:19)
[2021-09-12] MEDS: Atenolol 25 MG Tab PO SCH (09:19)
[2021-09-12] MEDS: Doxycycline 100 MG Cap PO SCH ×2 (09:19→21:03)
[2021-09-12] MEDS: cefTRIAXone 2 GM in Sodium Chloride 0.9% 50 ML IV SCH (09:22)
--- NOTE | 2021-09-12 12:17 | PCM.PN ---
- General Info Date of Service: 09/12/21 Subjective Update: No acute events overnight. Respiratory status is stable to slightly improved. He is down to 9 L of supplemental oxygen this morning. He does not feel short of breath. He reports only minimal dyspnea with walking to the bathroom and back. No fevers. No significant cough. He is in good spirits. Appetite has been good. Functional Status: Reports: Pain Controlled, Tolerating Diet - Review of Systems General: Denies: Weakness Pulmonary: Denies: Shortness of Breath - Patient Data Vitals - Most Recent: Last Vital Signs Temp 35.1 C L 09/12/21 11:00 Pulse 70 09/12/21 11:00 Resp 18 09/12/21 11:00 BP 118/81 09/12/21 11:00 Pulse Ox 99 09/12/21 11:54 Weight - Most Recent: 103.419 kg I&O - Last 24 Hours: Intake & Output 09/11/21 09/12/21 09/12/21 22:59 06:59 14:59 Intake Total 1200 1500 Balance 1200 1500 Lab Results Last 24 Hours: Laboratory Results - last 24 hr 09/12/21 09/12/21 Range/Units 05:55 05:55 WBC 13.7 H (4.5-11.0) K/uL RBC 5.70 (4.30-5.90) M/uL Hgb 15.3 H (12.0-15.0) g/dL Hct 44.8 (40.0-54.0) % MCV 79 L (80-98) fL MCH 27 (27-31) pg MCHC 34 (32-36) % Plt Count 441 H (150-400) K/uL Sodium 140 (140-148) mmol/L Potassium 4.2 (3.6-5.2) mmol/L Chloride 104 (100-108) mmol/L Carbon Dioxide 23 (21-32) mmol/L Anion Gap 12.6 (5.0-14.0) mmol/L BUN 37 H (7-18) mg/dL Creatinine 1.6 H (0.8-1.3) mg/dL Est Cr Clr Drug Dosing 55.56 mL/min Estimated GFR (MDRD) 55 L (>60) Glucose 97 (74-106) mg/dL Calcium 8.0 L (8.5-10.1) mg/dL Total Bilirubin 0.5 (0.2-1.0) mg/dL AST 111 H (15-37) U/L ALT 109 H (12-78) U/L Alkaline Phosphatase 129 H (46-116) U/L Total Protein 6.6 (6.4-8.2) g/dL Albumin 2.7 L (3.4-5.0) g/dL Globulin 3.9 H (2.3-3.5) g/dL Albumin/Globulin Ratio 0.7 L (1.2-2.2) Med Orders - Current: Current Medications Acetaminophen (Acetaminophen 325 Mg Tab) 650 mg PO Q4H PRN PRN Reason: Pain (Mild 1-3)/fever Albuterol (Albuterol 8 Gm Inhaler) 0 gm INH Q6H PRN PRN Reason: Shortness of Breath Allopurinol (Allopurinol 100 Mg Tab) 300 mg PO DAILY [facility] Last Admin: 09/12/21 09:19 Dose: 300 mg Documented by: Amlodipine Besylate (Amlodipine 5 Mg Tab) 10 mg PO DAILY [facility] Atenolol (Atenolol 25 Mg Tab) 100 mg PO DAILY [facility] Last Admin: 09/12/21 09:19 Dose: 100 mg Documented by: Atorvastatin Calcium (Atorvastatin 10 Mg Tab) 10 mg PO BEDTIME [facility] Last Admin: 09/11/21 20:42 Dose: 10 mg Documented by: Baricitinib (Baricitinib 2 Mg Tab) 2 mg PO DAILY [facility] Stop: 09/23/21 09:01 Last Admin: 09/12/21 09:19 Dose: 2 mg Documented by: Benzonatate (Benzonatate 100 Mg Cap) 100 mg PO TID PRN PRN Reason: Cough Calcium Carbonate/Glycine (Calcium Carbonate 500 Mg Tab.Chew) 500 mg PO Q2H PRN PRN Reason: Indigestion Last Admin: 09/10/21 23:04 Dose: 500 mg Documented by: Carbamide Perox/Anhydrous Glycerin (Carbamide Peroxide 6.5% Otic Soln 15 Ml Bottle) 0 ml EARBOTH BID [facility] Last Admin: 09/12/21 09:18 Dose: 1 drop Documented by: Colchicine (Colchicine 0.6 Mg Tab) 0.6 mg PO BID [facility] Last Admin: 09/12/21 09:17 Dose: 0.6 mg Documented by: Dexamethasone (Dexamethasone 4 Mg/Ml Sdv) 6 mg IVPUSH Q24H [facility] Last Admin: 09/11/21 14:38 Dose: 6 mg Documented by: Diphenhydramine HCl (Diphenhydramine 25 Mg Cap) 25 mg PO Q4H PRN PRN Reason: Itching Last Admin: 09/10/21 11:41 Dose: 25 mg Documented by: Doxycycline Hyclate (Doxycycline 100 Mg Cap) 100 mg PO BID [facility] Last Admin: 09/12/21 09:19 Dose: 100 mg Documented by: Enoxaparin Sodium (Enoxaparin 100 Mg/1 Ml Syringe) 100 mg SUBCUT Q12H [facility] Last Admin: 09/12/21 06:37 Dose: 100 mg Documented by: Guaifenesin/Dextromethorphan (Guaifenesin/Dextromethorphan 100-10 Mg/5 Ml Soln 10 Ml Cup) 10 ml PO Q4H PRN PRN Reason: Cough Remdesivir 100 mg/ Sodium (Chloride) 100 mls @ 100 mls/hr IV Q24H [facility] Stop: 09/13/21 14:59 Last Admin: 09/11/21 14:39 Dose: 100 mls/hr Documented by: Ceftriaxone Sodium 2 gm/ (Sodium Chloride) 50 mls @ 100 mls/hr IV Q24H [facility] Last Admin: 09/12/21 09:22 Dose: 100 mls/hr Documented by: Lisinopril (Lisinopril 20 Mg Tab) 40 mg PO DAILY [facility] Loperamide HCl (Loperamide 2 Mg Cap) 2 mg PO Q4H PRN PRN Reason: Diarrhea Lorazepam (Lorazepam 2 Mg/Ml Sdv) 0.5 mg IVPUSH Q4H PRN PRN Reason: Nausea/Vomiting Magnesium Hydroxide (Magnesium Hydroxide 400 Mg/5 Ml Susp 30 Ml Cup) 30 ml PO Q12H PRN PRN Reason: Constipation Melatonin (Melatonin 3 Mg Tab) 9 mg PO BEDTIME PRN PRN Reason: Sleep Nystatin (Nystatin Topical Powder 15 Gm Bottle) 1 gm TOP TID [facility] Last Admin: 09/12/21 09:18 Dose: 1 applic Documented by: Ondansetron HCl (Ondansetron 4 Mg/2 Ml Sdv) 4 mg IV Q6H PRN PRN Reason: Nausea/Vomiting Ondansetron HCl (Ondansetron 4 Mg Tab.Dis) 4 mg PO Q6H PRN PRN Reason: Nausea able to take PO Oxycodone HCl (Oxycodone 5 Mg Tab) 5 - 10 mg PO Q4H PRN PRN Reason: Pain Pantoprazole Sodium (Pantoprazole 40 Mg Tab.Cr) 40 mg PO ACBREAKFAST [facility] Last Admin: 09/12/21 07:33 Dose: 40 mg Documented by: Senna/Docusate Sodium (Docusate Sodium/Sennosides 50-8.6 Mg Tab) 1 tab PO BID PRN PRN Reason: Constipation Sodium Chloride (Sodium Chloride 0.9% 10 Ml Syringe) 10 ml FLUSH ASDIRECTED PRN PRN Reason: Keep Vein Open Last Admin: 09/09/21 12:47 Dose: 10 ml Documented by: Discontinued Medications Amlodipine Besylate (Amlodipine 5 Mg Tab) 10 mg PO BID [facility] Last Admin: 09/11/21 10:31 Dose: Not Given Documented by: Dexamethasone (Dexamethasone 4 Mg/Ml Sdv) 6 mg IVPUSH ONETIME ONE Stop: 09/09/21 13:51 Last Admin: 09/09/21 15:00 Dose: 6 mg Documented by: Hydralazine HCl (Hydralazine 25 Mg Tab) 25 mg PO TID [facility] Last Admin: 09/10/21 13:01 Dose: Not Given Documented by: Sodium Chloride (Normal Saline) 100 mls @ 4 mls/sec IV ASDIRECTED [facility] Last Admin: 09/09/21 12:58 Dose: 4 mls/sec Documented by: Remdesivir 200 mg/ Sodium (Chloride) 250 mls @ 250 mls/hr IV ONETIME ONE Stop: 09/09/21 15:59 Last Admin: 09/09/21 15:01 Dose: 250 mls/hr Documented by: Doxycycline Hyclate 100 mg/ (Sodium Chloride) 100 mls @ 100 mls/hr IV Q12H [facility] Last Admin: 09/10/21 10:37 Dose: 100 mls/hr Documented by: Sodium Chloride (Normal Saline) 500 mls @ 500 mls/hr IV .BOLUS ONE Stop: 09/10/21 21:55 Last Admin: 09/10/21 21:12 Dose: 500 mls/hr Documented by: Iopamidol (Iopamidol 755 Mg/Ml 100 Ml Bottle) 100 ml IV . DIRECTED [facility] Last Admin: 09/09/21 12:58 Dose: 100 ml Documented by: Lisinopril (Lisinopril 20 Mg Tab) 40 mg PO BID [facility] Last Admin: 09/11/21 10:31 Dose: Not Given Documented by: Nystatin (Nystatin Topical Powder 15 Gm Bottle) 1 gm TOP TID [facility] Sodium Chloride (Sodium Chloride 0.9% 10 Ml Syringe) 10 ml FLUSH ONETIME ONE Stop: 09/09/21 12:46 Last Admin: 09/09/21 12:58 Dose: 10 ml Documented by: - Exam Quality Assessment: Supplemental Oxygen General: Alert, Oriented, Cooperative, No Acute Distress Lungs: Normal Respiratory Effort. No: Wheezing GI/Abdominal Exam: Soft, No Distention Extremities: No Pedal Edema. No: Increased Warmth Psy/Mental Status: Alert, Normal Affect - Patient Data Lab Results Last 24 hrs: Laboratory Results - last 24 hr 09/12/21 09/12/21 Range/Units 05:55 05:55 WBC 13.7 H (4.5-11.0) K/uL RBC 5.70 (4.30-5.90) M/uL Hgb 15.3 H (12.0-15.0) g/dL Hct 44.8 (40.0-54.0) % MCV 79 L (80-98) fL MCH 27 (27-31) pg MCHC 34 (32-36) % Plt Count 441 H (150-400) K/uL Sodium 140 (140-148) mmol/L Potassium 4.2 (3.6-5.2) mmol/L Chloride 104 (100-108) mmol/L Carbon Dioxide 23 (21-32) mmol/L Anion Gap 12.6 (5.0-14.0) mmol/L BUN 37 H (7-18) mg/dL Creatinine 1.6 H (0.8-1.3) mg/dL Est Cr Clr Drug Dosing 55.56 mL/min Estimated GFR (MDRD) 55 L (>60) Glucose 97 (74-106) mg/dL Calcium 8.0 L (8.5-10.1) mg/dL Total Bilirubin 0.5 (0.2-1.0) mg/dL AST 111 H (15-37) U/L ALT 109 H (12-78) U/L Alkaline Phosphatase 129 H (46-116) U/L Total Protein 6.6 (6.4-8.2) g/dL Albumin 2.7 L (3.4-5.0) g/dL Globulin 3.9 H (2.3-3.5) g/dL Albumin/Globulin Ratio 0.7 L (1.2-2.2) Result Diagrams: 09/12/21 05:55 09/12/21 05:55 Sepsis Event Note - Evaluation Sepsis Screening Result: Sepsis Risk - Focused Exam Vital Signs: Vital Signs Temp Pulse Pulse Resp BP BP BP 09/12/21 11:54 09/12/21 11:00 35.1 C L 70 18 118/81 09/12/21 09:19 88 122/78 09/12/21 07:28 09/12/21 07:00 34.7 C L 68 18 122/78 09/12/21 03:00 35.4 C L 70 18 123/80 09/12/21 01:00 Pulse Ox 09/12/21 11:54 99 09/12/21 11:00 95 09/12/21 09:19 09/12/21 07:28 98 09/12/21 07:00 98 09/12/21 03:00 94 L 09/12/21 01:00 97 - Problem List & Annotations (1) Pneumonia due to COVID-19 virus SNOMED Code(s): 353717008593950862 Code(s): U07.1 - COVID-19; J12.82 - PNEUMONIA DUE TO CORONAVIRUS DISEASE 2019 Status: Acute Current Visit: Yes (2) Acute respiratory failure with hypoxia SNOMED Code(s): 94755223, 593252508 Code(s): J96.01 - ACUTE RESPIRATORY FAILURE WITH HYPOXIA Status: Acute Current Visit: Yes (3) Essential hypertension SNOMED Code(s): 66196795 Code(s): I10 - ESSENTIAL (PRIMARY) HYPERTENSION Status: Chronic Current Visit: Yes - Problem List Review Problem List Initiated/Reviewed/Updated: Yes - My Orders Last 24 Hours: My Active Orders 09/11/21 13:00 Carbamide Peroxide [Debrox 6.5% Otic Soln] 0 ml EARBOTH BID 09/13/21 05:00 CBC W/O DIFF,HEMOGRAM [HEME] Timed (1) COMPREHENSIVE METABOLIC PN,CMP [CHEM] Timed CRP [C-REACTIVE PROTEIN] [CHEM] Timed D-DIMER QUANTITATIVE [COAG] Timed 09/14/21 09:00 amLODIPine [Norvasc] 10 mg PO DAILY lisinopriL [Prinivil] 40 mg PO DAILY - Plan Plan:: ASSESSMENT AND PLAN - COVID-19 pneumonia-complicated by acute respiratory failure with hypoxia. Respiratory status slightly improved this morning and supplemental oxygen requirement slightly less. Symptomatically doing well. Tolerating treatment so far. -Dexamethasone 6 mg daily (day 4) -Remdesivir x5 days -Continue baricitinib (day 3) -Empiric antibiotics x5 to 7 days with elevated procalcitonin -Full dose enoxaparin (1 mg/kg every 12 hours) -Repeat labs every 2 days -Encourage prone positioning -Supplement oxygen, wean as able -Isolation precautions (sx onset about 08/31) Essential hypertension-blood pressure on the low side at this time. -Discontinue hydralazine -Hold other home medications until blood pressure rises Maintenance issues - -DVT prophylaxis-enoxaparin -GI prophylaxis-PPI -Nutrition-regular Disposition -I anticipate discharge home after the hospital stay Primary care physician - Lon Yen M.D.
[2021-09-12] MEDS: Dexamethasone 4 MG/ML SDV IVPUSH SCH (14:12)
[2021-09-12] MEDS: REMDESIVIR 100 MG in Sodium Chloride 0.9% 100 ML IV SCH (14:13)
[2021-09-12] MEDS: atorvaSTATin 10 MG Tab PO SCH (21:02)
[2021-09-13] MEDS: Enoxaparin 100 MG/1 ML Syringe SUBCUT SCH ×2 (06:01→17:21)
[2021-09-13] MEDS: Pantoprazole 40 MG Tab.CR PO SCH (07:45)
[2021-09-13] MEDS: Allopurinol 100 MG Tab PO SCH (08:54)
[2021-09-13] MEDS: Colchicine 0.6 MG Tab PO SCH ×2 (08:55→20:27)
[2021-09-13] MEDS: Doxycycline 100 MG Cap PO SCH ×2 (08:55→20:29)
[2021-09-13] MEDS: Atenolol 25 MG Tab PO SCH (08:55)
[2021-09-13] MEDS: Carbamide Peroxide 6.5% Otic Soln 15 ML Bottle EARBOTH SCH ×2 (08:56→20:27)
[2021-09-13] MEDS: Nystatin Topical Powder 15 GM Bottle TOP SCH ×3 (08:56→20:29)
[2021-09-13] MEDS: cefTRIAXone 2 GM in Sodium Chloride 0.9% 50 ML IV SCH (08:57)
--- NOTE | 2021-09-13 11:56 | PCM.PN ---
- General Info Date of Service: 09/13/21 Subjective Update: No acute events overnight. No significant shortness of breath. He does have mild dyspnea with exertion. No chest pain. No fevers. Appetite has been good. He feels well and is hoping to go home soon. D-dimer and CRP have improved significantly over the past 24 hours. Still requiring about 8 L of supplemental oxygen. Functional Status: Reports: Pain Controlled, Tolerating Diet - Review of Systems Pulmonary: Denies: Shortness of Breath - Patient Data Vitals - Most Recent: Last Vital Signs Temp 35.6 C L 09/13/21 10:53 Pulse 72 09/13/21 10:53 Resp 18 09/13/21 10:53 BP 120/77 09/13/21 10:53 Pulse Ox 95 09/13/21 10:53 Weight - Most Recent: 103.419 kg I&O - Last 24 Hours: Intake & Output 09/12/21 09/13/21 09/13/21 22:59 06:59 14:59 Intake Total 1500 Balance 1500 Lab Results Last 24 Hours: Laboratory Results - last 24 hr 09/13/21 09/13/21 09/13/21 Range/Units 04:15 04:15 04:15 WBC 12.0 H (4.5-11.0) K/uL RBC 5.15 (4.30-5.90) M/uL Hgb 13.9 (12.0-15.0) g/dL Hct 40.7 (40.0-54.0) % MCV 79 L (80-98) fL MCH 27 (27-31) pg MCHC 34 (32-36) % Plt Count 411 H (150-400) K/uL D-Dimer, Quantitative 7110.75 H (0.0-500.0) ng/mL Sodium 142 (140-148) mmol/L Potassium 4.4 (3.6-5.2) mmol/L Chloride 108 (100-108) mmol/L Carbon Dioxide 21 (21-32) mmol/L Anion Gap 13.1 (5.0-14.0) mmol/L BUN 26 H (7-18) mg/dL Creatinine 1.2 (0.8-1.3) mg/dL Est Cr Clr Drug Dosing 74.08 mL/min Estimated GFR (MDRD) > 60 (>60) Glucose 133 H (74-106) mg/dL Calcium 7.7 L (8.5-10.1) mg/dL Total Bilirubin 0.5 (0.2-1.0) mg/dL AST 111 H (15-37) U/L ALT 111 H (12-78) U/L Alkaline Phosphatase 117 H (46-116) U/L C-Reactive Protein 1.58 H (0.0-0.3) mg/dL Total Protein 6.2 L (6.4-8.2) g/dL Albumin 2.5 L (3.4-5.0) g/dL Globulin 3.7 H (2.3-3.5) g/dL Albumin/Globulin Ratio 0.7 L (1.2-2.2) Med Orders - Current: Current Medications Acetaminophen (Acetaminophen 325 Mg Tab) 650 mg PO Q4H PRN PRN Reason: Pain (Mild 1-3)/fever Albuterol (Albuterol 8 Gm Inhaler) 0 gm INH Q6H PRN PRN Reason: Shortness of Breath Allopurinol (Allopurinol 100 Mg Tab) 300 mg PO DAILY [facility] Last Admin: 09/13/21 08:54 Dose: 300 mg Documented by: Amlodipine Besylate (Amlodipine 5 Mg Tab) 10 mg PO DAILY [facility] Atenolol (Atenolol 25 Mg Tab) 100 mg PO DAILY [facility] Last Admin: 09/13/21 08:55 Dose: 100 mg Documented by: Atorvastatin Calcium (Atorvastatin 10 Mg Tab) 10 mg PO BEDTIME [facility] Last Admin: 09/12/21 21:02 Dose: 10 mg Documented by: Baricitinib (Baricitinib 2 Mg Tab) 4 mg PO DAILY [facility] Stop: 09/23/21 09:01 Benzonatate (Benzonatate 100 Mg Cap) 100 mg PO TID PRN PRN Reason: Cough Calcium Carbonate/Glycine (Calcium Carbonate 500 Mg Tab.Chew) 500 mg PO Q2H PRN PRN Reason: Indigestion Last Admin: 09/10/21 23:04 Dose: 500 mg Documented by: Carbamide Perox/Anhydrous Glycerin (Carbamide Peroxide 6.5% Otic Soln 15 Ml Bottle) 0 ml EARBOTH BID [facility] Last Admin: 09/13/21 08:56 Dose: 4 drop Documented by: Colchicine (Colchicine 0.6 Mg Tab) 0.6 mg PO BID [facility] Last Admin: 09/13/21 08:55 Dose: 0.6 mg Documented by: Dexamethasone (Dexamethasone 4 Mg/Ml Sdv) 6 mg IVPUSH Q24H [facility] Last Admin: 09/12/21 14:12 Dose: 6 mg Documented by: Diphenhydramine HCl (Diphenhydramine 25 Mg Cap) 25 mg PO Q4H PRN PRN Reason: Itching Last Admin: 09/10/21 11:41 Dose: 25 mg Documented by: Doxycycline Hyclate (Doxycycline 100 Mg Cap) 100 mg PO BID [facility] Last Admin: 09/13/21 08:55 Dose: 100 mg Documented by: Enoxaparin Sodium (Enoxaparin 100 Mg/1 Ml Syringe) 100 mg SUBCUT Q12H [facility] Last Admin: 09/13/21 06:01 Dose: 100 mg Documented by: Guaifenesin/Dextromethorphan (Guaifenesin/Dextromethorphan 100-10 Mg/5 Ml Soln 10 Ml Cup) 10 ml PO Q4H PRN PRN Reason: Cough Remdesivir 100 mg/ Sodium (Chloride) 100 mls @ 100 mls/hr IV Q24H [facility] Stop: 09/13/21 14:59 Last Admin: 09/12/21 14:13 Dose: 100 mls/hr Documented by: Ceftriaxone Sodium 2 gm/ (Sodium Chloride) 50 mls @ 100 mls/hr IV Q24H [facility] Last Admin: 09/13/21 08:57 Dose: 100 mls/hr Documented by: Lisinopril (Lisinopril 20 Mg Tab) 40 mg PO DAILY [facility] Loperamide HCl (Loperamide 2 Mg Cap) 2 mg PO Q4H PRN PRN Reason: Diarrhea Lorazepam (Lorazepam 2 Mg/Ml Sdv) 0.5 mg IVPUSH Q4H PRN PRN Reason: Nausea/Vomiting Magnesium Hydroxide (Magnesium Hydroxide 400 Mg/5 Ml Susp 30 Ml Cup) 30 ml PO Q12H PRN PRN Reason: Constipation Melatonin (Melatonin 3 Mg Tab) 9 mg PO BEDTIME PRN PRN Reason: Sleep Nystatin (Nystatin Topical Powder 15 Gm Bottle) 1 gm TOP TID [facility] Last Admin: 09/13/21 08:56 Dose: 1 applic Documented by: Ondansetron HCl (Ondansetron 4 Mg/2 Ml Sdv) 4 mg IV Q6H PRN PRN Reason: Nausea/Vomiting Ondansetron HCl (Ondansetron 4 Mg Tab.Dis) 4 mg PO Q6H PRN PRN Reason: Nausea able to take PO Oxycodone HCl (Oxycodone 5 Mg Tab) 5 - 10 mg PO Q4H PRN PRN Reason: Pain Pantoprazole Sodium (Pantoprazole 40 Mg Tab.Cr) 40 mg PO ACBREAKFAST [facility] Last Admin: 09/13/21 07:45 Dose: 40 mg Documented by: Senna/Docusate Sodium (Docusate Sodium/Sennosides 50-8.6 Mg Tab) 1 tab PO BID PRN PRN Reason: Constipation Sodium Chloride (Sodium Chloride 0.9% 10 Ml Syringe) 10 ml FLUSH ASDIRECTED PRN PRN Reason: Keep Vein Open Last Admin: 09/09/21 12:47 Dose: 10 ml Documented by: Discontinued Medications Amlodipine Besylate (Amlodipine 5 Mg Tab) 10 mg PO BID [facility] Last Admin: 09/11/21 10:31 Dose: Not Given Documented by: Baricitinib (Baricitinib 2 Mg Tab) 2 mg PO DAILY [facility] Stop: 09/23/21 09:01 Last Admin: 09/13/21 08:55 Dose: 2 mg Documented by: Baricitinib (Baricitinib 2 Mg Tab) 2 mg PO ONETIME ONE Stop: 09/13/21 10:01 Last Admin: 09/13/21 09:48 Dose: 2 mg Documented by: Dexamethasone (Dexamethasone 4 Mg/Ml Sdv) 6 mg IVPUSH ONETIME ONE Stop: 09/09/21 13:51 Last Admin: 09/09/21 15:00 Dose: 6 mg Documented by: Hydralazine HCl (Hydralazine 25 Mg Tab) 25 mg PO TID [facility] Last Admin: 09/10/21 13:01 Dose: Not Given Documented by: Sodium Chloride (Normal Saline) 100 mls @ 4 mls/sec IV ASDIRECTED [facility] Last Admin: 09/09/21 12:58 Dose: 4 mls/sec Documented by: Remdesivir 200 mg/ Sodium (Chloride) 250 mls @ 250 mls/hr IV ONETIME ONE Stop: 09/09/21 15:59 Last Admin: 09/09/21 15:01 Dose: 250 mls/hr Documented by: Doxycycline Hyclate 100 mg/ (Sodium Chloride) 100 mls @ 100 mls/hr IV Q12H [facility] Last Admin: 09/10/21 10:37 Dose: 100 mls/hr Documented by: Sodium Chloride (Normal Saline) 500 mls @ 500 mls/hr IV .BOLUS ONE Stop: 09/10/21 21:55 Last Admin: 09/10/21 21:12 Dose: 500 mls/hr Documented by: Iopamidol (Iopamidol 755 Mg/Ml 100 Ml Bottle) 100 ml IV . DIRECTED [facility] Last Admin: 09/09/21 12:58 Dose: 100 ml Documented by: Lisinopril (Lisinopril 20 Mg Tab) 40 mg PO BID [facility] Last Admin: 09/11/21 10:31 Dose: Not Given Documented by: Nystatin (Nystatin Topical Powder 15 Gm Bottle) 1 gm TOP TID [facility] Sodium Chloride (Sodium Chloride 0.9% 10 Ml Syringe) 10 ml FLUSH ONETIME ONE Stop: 09/09/21 12:46 Last Admin: 09/09/21 12:58 Dose: 10 ml Documented by: - Exam Quality Assessment: Supplemental Oxygen General: Alert, Oriented, Cooperative, No Acute Distress Lungs: Normal Respiratory Effort. No: Wheezing Cardiovascular: Regular Rate, Regular Rhythm GI/Abdominal Exam: Soft, No Distention Psy/Mental Status: Alert, Normal Affect - Patient Data Lab Results Last 24 hrs: Laboratory Results - last 24 hr 09/13/21 09/13/21 09/13/21 Range/Units 04:15 04:15 04:15 WBC 12.0 H (4.5-11.0) K/uL RBC 5.15 (4.30-5.90) M/uL Hgb 13.9 (12.0-15.0) g/dL Hct 40.7 (40.0-54.0) % MCV 79 L (80-98) fL MCH 27 (27-31) pg MCHC 34 (32-36) % Plt Count 411 H (150-400) K/uL D-Dimer, Quantitative 7110.75 H (0.0-500.0) ng/mL Sodium 142 (140-148) mmol/L Potassium 4.4 (3.6-5.2) mmol/L Chloride 108 (100-108) mmol/L Carbon Dioxide 21 (21-32) mmol/L Anion Gap 13.1 (5.0-14.0) mmol/L BUN 26 H (7-18) mg/dL Creatinine 1.2 (0.8-1.3) mg/dL Est Cr Clr Drug Dosing 74.08 mL/min Estimated GFR (MDRD) > 60 (>60) Glucose 133 H (74-106) mg/dL Calcium 7.7 L (8.5-10.1) mg/dL Total Bilirubin 0.5 (0.2-1.0) mg/dL AST 111 H (15-37) U/L ALT 111 H (12-78) U/L Alkaline Phosphatase 117 H (46-116) U/L C-Reactive Protein 1.58 H (0.0-0.3) mg/dL Total Protein 6.2 L (6.4-8.2) g/dL Albumin 2.5 L (3.4-5.0) g/dL Globulin 3.7 H (2.3-3.5) g/dL Albumin/Globulin Ratio 0.7 L (1.2-2.2) Result Diagrams: 09/13/21 04:15 09/13/21 04:15 Sepsis Event Note - Evaluation Sepsis Screening Result: Sepsis Risk - Focused Exam Vital Signs: Vital Signs Temp Pulse Pulse Resp BP BP Pulse Ox 09/13/21 10:53 35.6 C L 72 18 120/77 95 09/13/21 09:00 98 09/13/21 08:55 98 140/87 09/13/21 08:03 35.5 C L 18 140/87 92 L 09/13/21 07:15 96 09/13/21 03:00 35.2 C L 68 18 134/94 H 97 09/13/21 01:27 99 - Problem List & Annotations (1) Pneumonia due to COVID-19 virus SNOMED Code(s): 864820550259291822 Code(s): U07.1 - COVID-19; J12.82 - PNEUMONIA DUE TO CORONAVIRUS DISEASE 2019 Status: Acute Current Visit: Yes (2) Acute respiratory failure with hypoxia SNOMED Code(s): 45713163, 176594259 Code(s): J96.01 - ACUTE RESPIRATORY FAILURE WITH HYPOXIA Status: Acute Current Visit: Yes (3) Essential hypertension SNOMED Code(s): 91483059 Code(s): I10 - ESSENTIAL (PRIMARY) HYPERTENSION Status: Chronic Current Visit: Yes - Problem List Review Problem List Initiated/Reviewed/Updated: Yes - My Orders Last 24 Hours: My Active Orders 09/14/21 05:00 COMPREHENSIVE METABOLIC PN,CMP [CHEM] Timed 09/14/21 09:00 Baricitinib [Olumiant] 4 mg PO DAILY amLODIPine [Norvasc] 10 mg PO DAILY lisinopriL [Prinivil] 40 mg PO DAILY - Plan Plan:: ASSESSMENT AND PLAN - COVID-19 pneumonia-complicated by acute respiratory failure with hypoxia. Respiratory status steadily improving and he is down to 8 L. Symptomatically he feels good. Significant improvement in D-dimer and CRP. -Dexamethasone 6 mg daily (day 5) -Remdesivir x5 days -Continue baricitinib (day 4) -Empiric antibiotics x5 to 7 days with elevated procalcitonin -Full dose enoxaparin (1 mg/kg every 12 hours), anticipate anticoagulation after discharge home -Repeat labs every 2 days -Encourage prone positioning -Supplement oxygen, wean as able -Isolation precautions (sx onset about 08/31) Essential hypertension-blood pressure normal today, anticipate restarting at least one medication tomorrow -Discontinue hydralazine -Hold other home medications until blood pressure rises Maintenance issues - -DVT prophylaxis-enoxaparin -GI prophylaxis-PPI -Nutrition-regular Disposition -I anticipate discharge home after the hospital stay Primary care physician - Lon Yen M.D.
[2021-09-13] MEDS: Dexamethasone 4 MG/ML SDV IVPUSH SCH (14:18)
[2021-09-13] MEDS: REMDESIVIR 100 MG in Sodium Chloride 0.9% 100 ML IV SCH (14:18)
[2021-09-13] MEDS: atorvaSTATin 10 MG Tab PO SCH (20:29)
[2021-09-14] MEDS: Enoxaparin 100 MG/1 ML Syringe SUBCUT SCH ×2 (06:16→17:09)
[2021-09-14] MEDS: Colchicine 0.6 MG Tab PO SCH ×2 (08:07→20:04)
[2021-09-14] MEDS: Allopurinol 100 MG Tab PO SCH (08:07)
[2021-09-14] MEDS: Pantoprazole 40 MG Tab.CR PO SCH (08:07)
[2021-09-14] MEDS: Doxycycline 100 MG Cap PO SCH (08:07)
[2021-09-14] MEDS: Atenolol 25 MG Tab PO SCH (08:07)
[2021-09-14] MEDS: Carbamide Peroxide 6.5% Otic Soln 15 ML Bottle EARBOTH SCH ×2 (08:08→20:05)
[2021-09-14] MEDS: Nystatin Topical Powder 15 GM Bottle TOP SCH ×3 (08:08→20:05)
[2021-09-14] MEDS ORDERED: amLODIPine 5 MG Tab PO SCH (09:00)
[2021-09-14] MEDS ORDERED: Lisinopril 20 MG Tab PO SCH (09:00)
[2021-09-14] MEDS: cefTRIAXone 2 GM in Sodium Chloride 0.9% 50 ML IV SCH (09:43)
[2021-09-14] MEDS: Dexamethasone 4 MG/ML SDV IVPUSH SCH (13:56)
--- NOTE | 2021-09-14 14:04 | PCM.PN ---
- General Info Date of Service: 09/14/21 Subjective Update: No acute events overnight. Patient reports that he feels well. He does not feel short of breath except very mildly with persistent exertion. No chest pain or nausea. No fevers. Supplemental oxygen requirements steadily decreasing. Patient hoping to go home soon. Functional Status: Reports: Pain Controlled, Tolerating Diet - Review of Systems Pulmonary: Denies: Shortness of Breath - Patient Data Vitals - Most Recent: Last Vital Signs Temp 35.3 C L 09/14/21 07:00 Pulse 78 09/14/21 11:00 Resp 18 09/14/21 07:00 BP 159/94 H 09/14/21 08:07 Pulse Ox 94 L 09/14/21 12:58 Weight - Most Recent: 103.419 kg I&O - Last 24 Hours: Intake & Output 09/13/21 09/14/21 09/14/21 22:59 06:59 14:59 Intake Total 1700 2000 Balance 1700 1999 Lab Results Last 24 Hours: Laboratory Results - last 24 hr 09/14/21 Range/Units 04:10 Sodium 144 (140-148) mmol/L Potassium 4.2 (3.6-5.2) mmol/L Chloride 110 H (100-108) mmol/L Carbon Dioxide 22 (21-32) mmol/L Anion Gap 16.2 H (5.0-14.0) mmol/L BUN 21 H (7-18) mg/dL Creatinine 1.1 (0.8-1.3) mg/dL Est Cr Clr Drug Dosing 80.81 mL/min Estimated GFR (MDRD) > 60 (>60) Glucose 112 H (74-106) mg/dL Calcium 7.8 L (8.5-10.1) mg/dL Total Bilirubin 0.3 (0.2-1.0) mg/dL AST 83 H (15-37) U/L ALT 123 H (12-78) U/L Alkaline Phosphatase 104 (46-116) U/L Total Protein 6.1 L (6.4-8.2) g/dL Albumin 2.5 L (3.4-5.0) g/dL Globulin 3.6 H (2.3-3.5) g/dL Albumin/Globulin Ratio 0.7 L (1.2-2.2) Med Orders - Current: Current Medications Acetaminophen (Acetaminophen 325 Mg Tab) 650 mg PO Q4H PRN PRN Reason: Pain (Mild 1-3)/fever Albuterol (Albuterol 8 Gm Inhaler) 0 gm INH Q6H PRN PRN Reason: Shortness of Breath Allopurinol (Allopurinol 100 Mg Tab) 300 mg PO DAILY [facility] Last Admin: 09/14/21 08:07 Dose: 300 mg Documented by: Amlodipine Besylate (Amlodipine 5 Mg Tab) 10 mg PO DAILY [facility] Atenolol (Atenolol 25 Mg Tab) 100 mg PO DAILY [facility] Last Admin: 09/14/21 08:07 Dose: 100 mg Documented by: Atorvastatin Calcium (Atorvastatin 10 Mg Tab) 10 mg PO BEDTIME [facility] Last Admin: 09/13/21 20:29 Dose: 10 mg Documented by: Baricitinib (Baricitinib 2 Mg Tab) 4 mg PO DAILY [facility] Stop: 09/23/21 09:01 Last Admin: 09/14/21 08:07 Dose: 4 mg Documented by: Benzonatate (Benzonatate 100 Mg Cap) 100 mg PO TID PRN PRN Reason: Cough Last Admin: 09/13/21 16:51 Dose: 100 mg Documented by: Calcium Carbonate/Glycine (Calcium Carbonate 500 Mg Tab.Chew) 500 mg PO Q2H PRN PRN Reason: Indigestion Last Admin: 09/10/21 23:04 Dose: 500 mg Documented by: Carbamide Perox/Anhydrous Glycerin (Carbamide Peroxide 6.5% Otic Soln 15 Ml Bottle) 0 ml EARBOTH BID [facility] Last Admin: 09/14/21 08:08 Dose: 2 drop Documented by: Colchicine (Colchicine 0.6 Mg Tab) 0.6 mg PO BID [facility] Last Admin: 09/14/21 08:07 Dose: 0.6 mg Documented by: Dexamethasone (Dexamethasone 4 Mg/Ml Sdv) 6 mg IVPUSH Q24H [facility] Last Admin: 09/14/21 13:56 Dose: 6 mg Documented by: Diphenhydramine HCl (Diphenhydramine 25 Mg Cap) 25 mg PO Q4H PRN PRN Reason: Itching Last Admin: 09/10/21 11:41 Dose: 25 mg Documented by: Doxycycline Hyclate (Doxycycline 100 Mg Cap) 100 mg PO BID [facility] Last Admin: 09/14/21 08:07 Dose: 100 mg Documented by: Enoxaparin Sodium (Enoxaparin 100 Mg/1 Ml Syringe) 100 mg SUBCUT Q12H [facility] Last Admin: 09/14/21 06:16 Dose: 100 mg Documented by: Guaifenesin/Dextromethorphan (Guaifenesin/Dextromethorphan 100-10 Mg/5 Ml Soln 10 Ml Cup) 10 ml PO Q4H PRN PRN Reason: Cough Ceftriaxone Sodium 2 gm/ (Sodium Chloride) 50 mls @ 100 mls/hr IV Q24H [facility] Last Admin: 09/14/21 09:43 Dose: 100 mls/hr Documented by: Lisinopril (Lisinopril 20 Mg Tab) 40 mg PO DAILY [facility] Loperamide HCl (Loperamide 2 Mg Cap) 2 mg PO Q4H PRN PRN Reason: Diarrhea Lorazepam (Lorazepam 2 Mg/Ml Sdv) 0.5 mg IVPUSH Q4H PRN PRN Reason: Nausea/Vomiting Magnesium Hydroxide (Magnesium Hydroxide 400 Mg/5 Ml Susp 30 Ml Cup) 30 ml PO Q12H PRN PRN Reason: Constipation Melatonin (Melatonin 3 Mg Tab) 9 mg PO BEDTIME PRN PRN Reason: Sleep Nystatin (Nystatin Topical Powder 15 Gm Bottle) 1 gm TOP TID [facility] Last Admin: 09/14/21 08:08 Dose: 1 applic Documented by: Ondansetron HCl (Ondansetron 4 Mg/2 Ml Sdv) 4 mg IV Q6H PRN PRN Reason: Nausea/Vomiting Ondansetron HCl (Ondansetron 4 Mg Tab.Dis) 4 mg PO Q6H PRN PRN Reason: Nausea able to take PO Oxycodone HCl (Oxycodone 5 Mg Tab) 5 - 10 mg PO Q4H PRN PRN Reason: Pain Pantoprazole Sodium (Pantoprazole 40 Mg Tab.Cr) 40 mg PO ACBREAKFAST [facility] Last Admin: 09/14/21 08:07 Dose: 40 mg Documented by: Senna/Docusate Sodium (Docusate Sodium/Sennosides 50-8.6 Mg Tab) 1 tab PO BID PRN PRN Reason: Constipation Sodium Chloride (Sodium Chloride 0.9% 10 Ml Syringe) 10 ml FLUSH ASDIRECTED PRN PRN Reason: Keep Vein Open Last Admin: 09/09/21 12:47 Dose: 10 ml Documented by: Discontinued Medications Amlodipine Besylate (Amlodipine 5 Mg Tab) 10 mg PO BID [facility] Last Admin: 09/11/21 10:31 Dose: Not Given Documented by: Baricitinib (Baricitinib 2 Mg Tab) 2 mg PO DAILY [facility] Stop: 09/23/21 09:01 Last Admin: 09/13/21 08:55 Dose: 2 mg Documented by: Baricitinib (Baricitinib 2 Mg Tab) 2 mg PO ONETIME ONE Stop: 09/13/21 10:01 Last Admin: 09/13/21 09:48 Dose: 2 mg Documented by: Dexamethasone (Dexamethasone 4 Mg/Ml Sdv) 6 mg IVPUSH ONETIME ONE Stop: 09/09/21 13:51 Last Admin: 09/09/21 15:00 Dose: 6 mg Documented by: Hydralazine HCl (Hydralazine 25 Mg Tab) 25 mg PO TID [facility] Last Admin: 09/10/21 13:01 Dose: Not Given Documented by: Sodium Chloride (Normal Saline) 100 mls @ 4 mls/sec IV ASDIRECTED [facility] Last Admin: 09/09/21 12:58 Dose: 4 mls/sec Documented by: Remdesivir 200 mg/ Sodium (Chloride) 250 mls @ 250 mls/hr IV ONETIME ONE Stop: 09/09/21 15:59 Last Admin: 09/09/21 15:01 Dose: 250 mls/hr Documented by: Remdesivir 100 mg/ Sodium (Chloride) 100 mls @ 100 mls/hr IV Q24H [facility] Stop: 09/13/21 14:59 Last Admin: 09/13/21 14:18 Dose: 100 mls/hr Documented by: Doxycycline Hyclate 100 mg/ (Sodium Chloride) 100 mls @ 100 mls/hr IV Q12H [facility] Last Admin: 09/10/21 10:37 Dose: 100 mls/hr Documented by: Sodium Chloride (Normal Saline) 500 mls @ 500 mls/hr IV .BOLUS ONE Stop: 09/10/21 21:55 Last Admin: 09/10/21 21:12 Dose: 500 mls/hr Documented by: Iopamidol (Iopamidol 755 Mg/Ml 100 Ml Bottle) 100 ml IV . DIRECTED [facility] Last Admin: 09/09/21 12:58 Dose: 100 ml Documented by: Lisinopril (Lisinopril 20 Mg Tab) 40 mg PO BID [facility] Last Admin: 09/11/21 10:31 Dose: Not Given Documented by: Nystatin (Nystatin Topical Powder 15 Gm Bottle) 1 gm TOP TID [facility] Sodium Chloride (Sodium Chloride 0.9% 10 Ml Syringe) 10 ml FLUSH ONETIME ONE Stop: 09/09/21 12:46 Last Admin: 09/09/21 12:58 Dose: 10 ml Documented by: - Exam Quality Assessment: Supplemental Oxygen General: Alert, Oriented, Cooperative, No Acute Distress Lungs: Normal Respiratory Effort. No: Wheezing GI/Abdominal Exam: Soft, No Distention Skin: Warm, Dry Psy/Mental Status: Alert, Normal Affect - Patient Data Lab Results Last 24 hrs: Laboratory Results - last 24 hr 09/14/21 Range/Units 04:10 Sodium 144 (140-148) mmol/L Potassium 4.2 (3.6-5.2) mmol/L Chloride 110 H (100-108) mmol/L Carbon Dioxide 22 (21-32) mmol/L Anion Gap 16.2 H (5.0-14.0) mmol/L BUN 21 H (7-18) mg/dL Creatinine 1.1 (0.8-1.3) mg/dL Est Cr Clr Drug Dosing 80.81 mL/min Estimated GFR (MDRD) > 60 (>60) Glucose 112 H (74-106) mg/dL Calcium 7.8 L (8.5-10.1) mg/dL Total Bilirubin 0.3 (0.2-1.0) mg/dL AST 83 H (15-37) U/L ALT 123 H (12-78) U/L Alkaline Phosphatase 104 (46-116) U/L Total Protein 6.1 L (6.4-8.2) g/dL Albumin 2.5 L (3.4-5.0) g/dL Globulin 3.6 H (2.3-3.5) g/dL Albumin/Globulin Ratio 0.7 L (1.2-2.2) Result Diagrams: 09/13/21 04:15 09/14/21 04:10 Sepsis Event Note - Evaluation Sepsis Screening Result: Sepsis Risk - Focused Exam Vital Signs: Vital Signs Temp Pulse Pulse Resp BP BP Pulse Ox 09/14/21 12:58 94 L 09/14/21 11:00 78 94 L 09/14/21 08:07 71 159/94 H 09/14/21 07:05 93 L 09/14/21 07:00 35.3 C L 75 18 159/94 H 91 L - Problem List & Annotations (1) Pneumonia due to COVID-19 virus SNOMED Code(s): 424799821328817838 Code(s): U07.1 - COVID-19; J12.82 - PNEUMONIA DUE TO CORONAVIRUS DISEASE 2019 Status: Acute Current Visit: Yes (2) Acute respiratory failure with hypoxia SNOMED Code(s): 15033032, 818335911 Code(s): J96.01 - ACUTE RESPIRATORY FAILURE WITH HYPOXIA Status: Acute Current Visit: Yes (3) Essential hypertension SNOMED Code(s): 45219640 Code(s): I10 - ESSENTIAL (PRIMARY) HYPERTENSION Status: Chronic Current Visit: Yes - Problem List Review Problem List Initiated/Reviewed/Updated: Yes - My Orders Last 24 Hours: My Active Orders 09/14/21 09:00 Baricitinib [Olumiant] 4 mg PO DAILY amLODIPine [Norvasc] 10 mg PO DAILY lisinopriL [Prinivil] 40 mg PO DAILY 09/15/21 05:00 BASIC METABOLIC PANEL,BMP [CHEM] Timed CRP [C-REACTIVE PROTEIN] [CHEM] Timed D-DIMER QUANTITATIVE [COAG] Timed - Plan Plan:: ASSESSMENT AND PLAN - COVID-19 pneumonia-complicated by acute respiratory failure with hypoxia. Respiratory status steadily improving and he is down to 4 L. Symptomatically he feels good. Significant improvement in D-dimer and CRP. -Dexamethasone 6 mg daily (day 6) -Remdesivir x5 days -Continue baricitinib (day 5) -Empiric antibiotics x5 to 7 days with elevated procalcitonin -Full dose enoxaparin (1 mg/kg every 12 hours), anticipate anticoagulation after discharge home -Repeat labs every 2 days -Encourage prone positioning -Supplement oxygen, wean as able -Isolation precautions (sx onset about 08/31) Essential hypertension-blood pressure has risen above normal and planning to restart home medications. -Discontinue hydralazine -Restarting home meds except hydralazine Maintenance issues - -DVT prophylaxis-enoxaparin -GI prophylaxis-PPI -Nutrition-regular Disposition -I anticipate discharge home after the hospital stay Primary care physician - Lon Yen M.D.
[2021-09-14] MEDS: atorvaSTATin 10 MG Tab PO SCH (20:04)
[2021-09-15] MEDS: Enoxaparin 100 MG/1 ML Syringe SUBCUT SCH (05:37)
[2021-09-15] MEDS: Atenolol 25 MG Tab PO SCH (08:20)
[2021-09-15] MEDS: Allopurinol 100 MG Tab PO SCH (08:20)
[2021-09-15] MEDS: Carbamide Peroxide 6.5% Otic Soln 15 ML Bottle EARBOTH SCH (08:20)
[2021-09-15] MEDS: Nystatin Topical Powder 15 GM Bottle TOP SCH (08:21)
[2021-09-15] MEDS: Colchicine 0.6 MG Tab PO SCH (08:21)
[2021-09-15] MEDS: Pantoprazole 40 MG Tab.CR PO SCH (08:21)
[2021-09-15 11:25] VITALS: BP 138/86; PULSE 72
[2021-09-15] MEDS ORDERED: Enoxaparin 60 MG/0.6 ML Syringe SUBCUT ONE (12:30)
--- NOTE | 2021-09-15 12:34 | PCM.DCSUM1 ---
Discharge Summary - Hospital Course Brief History: Mr. Ledezma is a 56-year-old gentleman who was admitted through the emergency department with shortness of breath, cough, and hypoxia, secondary to Covid 19 infection. - Discharge Data Discharge Date: 09/15/21 Discharge Disposition: Home, Self-Care 01 Condition: Fair - Referral to Home Health Primary Care Physician: PCP None - Discharge Diagnosis/Problem(s) (1) Pneumonia due to COVID-19 virus SNOMED Code(s): 637345712157267956 ICD Code: U07.1 - COVID-19; J12.82 - PNEUMONIA DUE TO CORONAVIRUS DISEASE 2018 Status: Acute Current Visit: Yes (2) Acute respiratory failure with hypoxia SNOMED Code(s): 10984564, 303226741 ICD Code: J96.01 - ACUTE RESPIRATORY FAILURE WITH HYPOXIA Status: Acute Current Visit: Yes (3) Essential hypertension SNOMED Code(s): 41337819 ICD Code: I10 - ESSENTIAL (PRIMARY) HYPERTENSION Status: Chronic Current Visit: Yes - Patient Summary/Data Hospital Course: Mr. Ledezma presented to the emergency room with increasing shortness of breath. He thinks he first had symptoms of illness about 10 days ago but initially he had left arm pain and left shoulder pain. He did get antibiotics and steroids and this felt better. On Wednesday, 8 days ago he started to have some cough and shortness of breath. This has slowly progressed since that time and has been much more intense over the past couple of days. He reports nasal congestion, sore throat, cough with occasional sputum as well as subjective fevers. He has had some nausea and diarrhea. He is now short of breath with any activity. He does not report any chest pain. He is not aware of any obvious sick contacts but has been active in the community. He is not vaccinated against COVID19. He was so short of breath today that he thought he had better get checked out. Work-up in the emergency room revealed acute respiratory failure with hypoxia. His D- dimer was quite high at more than 50,[address] pulmonary angiogram did not show evidence for a pulmonary embolism. He is requiring 5 to 6 L of oxygen. He received dexamethasone and remdesivir. He was continued on these medications after admission and given supplemental oxygen as needed. Oxygen requirements increased significantly during the first few days of hospitalization and he was started on baricitinib in addition to the other medications. He was placed on high flow humidified oxygen and oxygenation stabilized. He showed remarkable improvement over the next few days and by the time of discharge was requiring only 2 to 3 L of oxygen per minute via nasal cannula. He will be discharged home on supplemental oxygen 2 L/min via nasal cannula until no longer needed. Because of his marked elevation in D-dimer on admission he was treated with therapeutic dosing of enoxaparin twice daily. D-dimer improved significantly but still remained elevated at the time of discharge and he will be discharged home with therapeutic enoxaparin 150 mg subcu daily for an additional week. He is instructed to self quarantine for the next 6 days. Activity will otherwise be as tolerated and he is encouraged to continue to follow a low-sodium diet. Follow-up appointment will be scheduled with his primary care provider within 1 week. - Patient Instructions Diet: Low Sodium Activity: As Tolerated Other/Special Instructions: These arrange for home oxygen 2 L/min via nasal cannula, please schedule follow-up appointment with primary care provider within 1 week. - Discharge Plan *PRESCRIPTION DRUG MONITORING PROGRAM REVIEWED*: Not Applicable *COPY OF PRESCRIPTION DRUG MONITORING REPORT IN PATIENT MONICO: Not Applicable Prescriptions/Med Rec: Enoxaparin [Lovenox] 150 mg SQ DAILY #7 ml Home Medications: Home Meds Lisinopril 40 mg PO DAILY 07/24/15 [History] allopurinoL [Allopurinol] 300 mg PO DAILY 07/24/15 [History] amLODIPine Besylate [Amlodipine Besylate] 10 mg PO DAILY 07/24/15 [History] Albuterol Sulfate [Proair Hfa] 2 puff INH Q6H PRN 04/10/20 [History] Colchicine 0.6 mg PO BID 04/10/20 [History] atorvaSTATin [Lipitor] 10 mg PO BEDTIME 04/10/20 [History] atenoloL [Atenolol] 100 mg PO DAILY 03/31/21 [History] hydrALAZINE [Apresoline] 25 mg PO TID 03/31/21 [History] Enoxaparin [Lovenox] 150 mg SQ DAILY #7 ml 09/15/21 [Rx] Oxygen Flow Rate (L/min): 2 Patient Handouts: Hypoxia, Fall Prevention in the Home, Adult, [id number], COVID-19, Enoxaparin injection, Anticoagulant Injection Instructions Using a Prefilled Syringe Forms: ED Department Discharge Referrals: Lon Rodriguez REFRIGERATOR MOVER [Nurse Practitioner] - 09/24/21 9:30 am (Please arrive 15 minutes early to register for your appointment.) - Discharge Summary/Plan Comment DC Time >30 min.: No Total # of Minutes for Discharge Time: 20 - Patient Data Vitals - Most Recent: Last Vital Signs Temp 95.6 F L 09/15/21 11:25 Pulse 72 09/15/21 11:25 Resp 18 09/15/21 11:25 BP 138/86 09/15/21 11:25 Pulse Ox 96 09/15/21 11:25 Weight - Most Recent: 228 lb I&O - Last 24 hours: Intake & Output 09/14/21 09/15/21 09/15/21 22:59 06:59 14:59 Intake Total 900 2500 900 Balance 900 2500 900 Lab Results - Last 24 hrs: Laboratory Results - last 24 hr 09/15/21 09/15/21 Range/Units 04:40 04:40 D-Dimer, Quantitative 2664.82 H (0.0-500.0) ng/mL Sodium 144 (140-148) mmol/L Potassium 4.1 (3.6-5.2) mmol/L Chloride 111 H (100-108) mmol/L Carbon Dioxide 22 (21-32) mmol/L Anion Gap 15.1 H (5.0-14.0) mmol/L BUN 16 (7-18) mg/dL Creatinine 1.1 (0.8-1.3) mg/dL Est Cr Clr Drug Dosing 80.81 mL/min Estimated GFR (MDRD) > 60 (>60) Glucose 106 (74-106) mg/dL Calcium 8.0 L (8.5-10.1) mg/dL C-Reactive Protein 0.41 H (0.0-0.3) mg/dL Med Orders - Current: Current Medications Acetaminophen (Acetaminophen 325 Mg Tab) 650 mg PO Q4H PRN PRN Reason: Pain (Mild 1-3)/fever Albuterol (Albuterol 8 Gm Inhaler) 0 gm INH Q6H PRN PRN Reason: Shortness of Breath Allopurinol (Allopurinol 100 Mg Tab) 300 mg PO DAILY [facility] Last Admin: 09/15/21 08:20 Dose: 300 mg Documented by: Amlodipine Besylate (Amlodipine 5 Mg Tab) 10 mg PO DAILY [facility] Last Admin: 09/15/21 08:21 Dose: 10 mg Documented by: Atenolol (Atenolol 25 Mg Tab) 100 mg PO DAILY [facility] Last Admin: 09/15/21 08:20 Dose: 100 mg Documented by: Atorvastatin Calcium (Atorvastatin 10 Mg Tab) 10 mg PO BEDTIME [facility] Last Admin: 09/14/21 20:04 Dose: 10 mg Documented by: Baricitinib (Baricitinib 2 Mg Tab) 4 mg PO DAILY [facility] Stop: 09/23/21 09:01 Last Admin: 09/15/21 08:20 Dose: 4 mg Documented by: Benzonatate (Benzonatate 100 Mg Cap) 100 mg PO TID PRN PRN Reason: Cough Last Admin: 09/13/21 16:51 Dose: 100 mg Documented by: Calcium Carbonate/Glycine (Calcium Carbonate 500 Mg Tab.Chew) 500 mg PO Q2H PRN PRN Reason: Indigestion Last Admin: 09/10/21 23:04 Dose: 500 mg Documented by: Carbamide Perox/Anhydrous Glycerin (Carbamide Peroxide 6.5% Otic Soln 15 Ml Bottle) 0 ml EARBOTH BID [facility] Last Admin: 09/15/21 08:20 Dose: 2 drop Documented by: Colchicine (Colchicine 0.6 Mg Tab) 0.6 mg PO BID [facility] Last Admin: 09/15/21 08:21 Dose: 0.6 mg Documented by: Dexamethasone (Dexamethasone 4 Mg/Ml Sdv) 6 mg IVPUSH Q24H [facility] Last Admin: 09/14/21 13:56 Dose: 6 mg Documented by: Diphenhydramine HCl (Diphenhydramine 25 Mg Cap) 25 mg PO Q4H PRN PRN Reason: Itching Last Admin: 09/10/21 11:41 Dose: 25 mg Documented by: Enoxaparin Sodium (Enoxaparin 100 Mg/1 Ml Syringe) 100 mg SUBCUT Q12H [facility] Last Admin: 09/15/21 05:37 Dose: 100 mg Documented by: Enoxaparin Sodium (Enoxaparin 60 Mg/0.6 Ml Syringe) 50 mg SUBCUT ONETIME ONE Stop: 09/15/21 12:31 Guaifenesin/Dextromethorphan (Guaifenesin/Dextromethorphan 100-10 Mg/5 Ml Soln 10 Ml Cup) 10 ml PO Q4H PRN PRN Reason: Cough Lisinopril (Lisinopril 20 Mg Tab) 40 mg PO DAILY [facility] Last Admin: 09/15/21 08:20 Dose: 40 mg Documented by: Loperamide HCl (Loperamide 2 Mg Cap) 2 mg PO Q4H PRN PRN Reason: Diarrhea Lorazepam (Lorazepam 2 Mg/Ml Sdv) 0.5 mg IVPUSH Q4H PRN PRN Reason: Nausea/Vomiting Magnesium Hydroxide (Magnesium Hydroxide 400 Mg/5 Ml Susp 30 Ml Cup) 30 ml PO Q12H PRN PRN Reason: Constipation Melatonin (Melatonin 3 Mg Tab) 9 mg PO BEDTIME PRN PRN Reason: Sleep Nystatin (Nystatin Topical Powder 15 Gm Bottle) 1 gm TOP TID [facility] Last Admin: 09/15/21 08:21 Dose: Not Given Documented by: Ondansetron HCl (Ondansetron 4 Mg/2 Ml Sdv) 4 mg IV Q6H PRN PRN Reason: Nausea/Vomiting Ondansetron HCl (Ondansetron 4 Mg Tab.Dis) 4 mg PO Q6H PRN PRN Reason: Nausea able to take PO Oxycodone HCl (Oxycodone 5 Mg Tab) 5 - 10 mg PO Q4H PRN PRN Reason: Pain Pantoprazole Sodium (Pantoprazole 40 Mg Tab.Cr) 40 mg PO ACBREAKFAST [facility] Last Admin: 09/15/21 08:21 Dose: 40 mg Documented by: Senna/Docusate Sodium (Docusate Sodium/Sennosides 50-8.6 Mg Tab) 1 tab PO BID PRN PRN Reason: Constipation Sodium Chloride (Sodium Chloride 0.9% 10 Ml Syringe) 10 ml FLUSH ASDIRECTED PRN PRN Reason: Keep Vein Open Last Admin: 09/09/21 12:47 Dose: 10 ml Documented by: Discontinued Medications Amlodipine Besylate (Amlodipine 5 Mg Tab) 10 mg PO BID [facility] Last Admin: 09/11/21 10:31 Dose: Not Given Documented by: Baricitinib (Baricitinib 2 Mg Tab) 2 mg PO DAILY [facility] Stop: 09/23/21 09:01 Last Admin: 09/13/21 08:55 Dose: 2 mg Documented by: Baricitinib (Baricitinib 2 Mg Tab) 2 mg PO ONETIME ONE Stop: 09/13/21 10:01 Last Admin: 09/13/21 09:48 Dose: 2 mg Documented by: Dexamethasone (Dexamethasone 4 Mg/Ml Sdv) 6 mg IVPUSH ONETIME ONE Stop: 09/09/21 13:51 Last Admin: 09/09/21 15:00 Dose: 6 mg Documented by: Doxycycline Hyclate (Doxycycline 100 Mg Cap) 100 mg PO BID [facility] Last Admin: 09/14/21 08:07 Dose: 100 mg Documented by: Hydralazine HCl (Hydralazine 25 Mg Tab) 25 mg PO TID [facility] Last Admin: 09/10/21 13:01 Dose: Not Given Documented by: Sodium Chloride (Normal Saline) 100 mls @ 4 mls/sec IV ASDIRECTED [facility] Last Admin: 09/09/21 12:58 Dose: 4 mls/sec Documented by: Remdesivir 200 mg/ Sodium (Chloride) 250 mls @ 250 mls/hr IV ONETIME ONE Stop: 09/09/21 15:59 Last Admin: 09/09/21 15:01 Dose: 250 mls/hr Documented by: Remdesivir 100 mg/ Sodium (Chloride) 100 mls @ 100 mls/hr IV Q24H [facility] Stop: 09/13/21 14:59 Last Admin: 09/13/21 14:18 Dose: 100 mls/hr Documented by: Doxycycline Hyclate 100 mg/ (Sodium Chloride) 100 mls @ 100 mls/hr IV Q12H [facility] Last Admin: 09/10/21 10:37 Dose: 100 mls/hr Documented by: Ceftriaxone Sodium 2 gm/ (Sodium Chloride) 50 mls @ 100 mls/hr IV Q24H [facility] Last Admin: 09/14/21 09:43 Dose: 100 mls/hr Documented by: Sodium Chloride (Normal Saline) 500 mls @ 500 mls/hr IV .BOLUS ONE Stop: 09/10/21 21:55 Last Admin: 09/10/21 21:12 Dose: 500 mls/hr Documented by: Iopamidol (Iopamidol 755 Mg/Ml 100 Ml Bottle) 100 ml IV . DIRECTED [facility] Last Admin: 09/09/21 12:58 Dose: 100 ml Documented by: Lisinopril (Lisinopril 20 Mg Tab) 40 mg PO BID [facility] Last Admin: 09/11/21 10:31 Dose: Not Given Documented by: Nystatin (Nystatin Topical Powder 15 Gm Bottle) 1 gm TOP TID [facility] Sodium Chloride (Sodium Chloride 0.9% 10 Ml Syringe) 10 ml FLUSH ONETIME ONE Stop: 09/09/21 12:46 Last Admin: 09/09/21 12:58 Dose: 10 ml Documented by: - Exam Quality Assessment: Reports: Supplemental Oxygen, DVT Prophylaxis General: Reports: Alert, Oriented, Cooperative, Mild Distress Lungs: Reports: Clear to Auscultation, Normal Respiratory Effort. Denies: Crac kles, Rales, Rhonchi, Wheezing Cardiovascular: Reports: Regular Rate, Regular Rhythm, No Murmurs GI/Abdominal Exam: Soft, Non-Tender, No Organomegaly, No Distention Extremities: Non-Tender, No Pedal Edema
== END 2021-09-15 14:09 | disposition home or self-care (01) | DRG 177 ==
LOC: JP.ED 09:54 → JP.2SS 16:16
PROVIDERS: ADMIT Internal Medicine; ATTEND Internal Medicine
PROC: 8E0ZXY6 Isolation (ICD-10-PCS; principal; 2021-09-09)
PROC: 3E0333Z Introduction of Anti-inflammatory into Peripheral Vein, Percutaneous Approach (ICD-10-PCS; 2021-09-09)
PROC: XW033E5 Introduction of Remdesivir Anti-infective into Peripheral Vein, Percutaneous Approach, New Technology Group 5 (ICD-10-PCS; 2021-09-09)
PROC: XW0DXM6 Introduction of Baricitinib into Mouth and Pharynx, External Approach, New Technology Group 6 (ICD-10-PCS; 2021-09-10)
DX: U07.1 COVID-19 (principal); J12.82 Pneumonia due to coronavirus disease 2019; J96.01 Acute respiratory failure with hypoxia; I10 Essential (primary) hypertension; H54.7 Unspecified visual loss; E78.00 Pure hypercholesterolemia, unspecified; J45.909 Unspecified asthma, uncomplicated; K21.9 Gastro-esophageal reflux disease without esophagitis; E66.9 Obesity, unspecified; Z88.0 Allergy status to penicillin; Z88.8 Allergy status to other drugs, medicaments and biological substances; Z79.899 Other long term (current) drug therapy; Z68.31 Body mass index [BMI] 31.0-31.9, adult
CPT/HCPCS: 36415; 71275; 80048; 80053; 81001; 84145; 85027; 85379; 86140; 94762; 96365; 96375; 99223; 99232; 99238; 99285-25; A9270-GY; J0696; J1100; J1650; J3490; J7040; J7050; Q9967; U0002

== ENCOUNTER 2022-04-06 07:36 | Day surgery (SDC) | payer MEDICAID ==
[2022-04-06] MEDS ORDERED: Propofol 200 MG/20 ML SDV ONE ×2 (07:38→10:23)
[2022-04-06] MEDS ORDERED: Midazolam 1 MG/ML 2 ML SDV ONE ×2 (07:38→10:51)
[2022-04-06] MEDS ORDERED: fentaNYL 100 MCG/2 ML SDV ONE ×2 (07:38→10:51)
[2022-04-06] MEDS ORDERED: Bupivacaine 0.5% 50 ML MDV ONE (07:49)
[2022-04-06] MEDS ORDERED: Nozin Nasal Sanitizer NASBOTH SCH (08:00)
[2022-04-06] MEDS ORDERED: Lactated Ringers 1,000 ML IV SCH (08:00)
[2022-04-06] MEDS ORDERED: Clindamycin Phosphate 900 MG in Sodium Chloride 0.9% 100 ML IV ONE ×4 (08:30)
[2022-04-06] MEDS ORDERED: Tranexamic Acid 1,000 MG in Sodium Chloride 0.9% 50 ML IV ONE (08:45)
[2022-04-06] MEDS ORDERED: HYDROmorphone 0.5 MG/0.5 ML Syringe IVPUSH PRN (12:16)
[2022-04-06] MEDS ORDERED: traMADol 50 MG Tab PO PRN (12:16)
[2022-04-06] MEDS ORDERED: Ondansetron 4 MG/2 ML SDV IVPUSH PRN (12:16)
[2022-04-06] MEDS ORDERED: Albuterol 8 GM Inhaler INH PRN (12:21)
[2022-04-06] MEDS ORDERED: Sodium Chloride 0.9% 1,000 ML IV SCH (12:30)
[2022-04-06] MEDS: Acetaminophen 500 MG Tab PO SCH ×2 (13:50→19:16)
[2022-04-06] MEDS: hydrALAZINE 25 MG Tab PO SCH ×2 (13:50→20:40)
[2022-04-06] MEDS: Ketorolac 30 MG/ML SDV IVPUSH SCH ×2 (13:51→22:08)
[2022-04-06] MEDS: oxyCODONE 5 MG Tab PO PRN ×3 (15:13→23:08)
[2022-04-06] MEDS: Clindamycin Phosphate 900 MG in Sodium Chloride 0.9% 100 ML IV SCH ×2 (15:14→22:11)
[2022-04-06] MEDS: Colchicine 0.6 MG Tab PO SCH (20:40)
[2022-04-06] MEDS: Allopurinol 100 MG Tab PO SCH (20:40)
[2022-04-06] MEDS: Docusate Sodium 100 MG Cap PO SCH (20:40)
[2022-04-06] MEDS ORDERED: atorvaSTATin 10 MG Tab PO SCH (21:00)
[2022-04-06] MEDS: Nozin Nasal Sanitizer NASBOTH SCH (23:08)
[2022-04-07] MEDS: Acetaminophen 500 MG Tab PO SCH ×3 (02:48→13:05)
[2022-04-07] MEDS: oxyCODONE 5 MG Tab PO PRN ×3 (02:49→13:09)
[2022-04-07] MEDS: Clindamycin Phosphate 900 MG in Sodium Chloride 0.9% 100 ML IV SCH (05:40)
[2022-04-07] MEDS: Nozin Nasal Sanitizer NASBOTH SCH (08:23)
[2022-04-07] MEDS: hydrALAZINE 25 MG Tab PO SCH ×2 (08:23→13:05)
[2022-04-07] MEDS: Allopurinol 100 MG Tab PO SCH (08:23)
[2022-04-07] MEDS: Docusate Sodium 100 MG Cap PO SCH (08:25)
[2022-04-07] MEDS: Colchicine 0.6 MG Tab PO SCH (08:25)
[2022-04-07] MEDS ORDERED: amLODIPine 5 MG Tab PO SCH (09:00)
[2022-04-07] MEDS ORDERED: Atenolol 25 MG Tab PO SCH (09:00)
[2022-04-07] MEDS ORDERED: Lisinopril 20 MG Tab PO SCH (09:00)
[2022-04-07] MEDS ORDERED: Celecoxib 200 MG Cap PO SCH (09:00)
[2022-04-07] MEDS ORDERED: Enoxaparin 30 MG/0.3 ML Syringe SUBCUT SCH (09:00)
[2022-04-07 10:46] VITALS: PULSE 74
[2022-04-07 14:02] VITALS: BP 169/91
== END 2022-04-07 14:34 | disposition home or self-care (01) ==
LOC: JP.SDS 07:36 → JP.MS 12:16 → JP.SDS 04-07 14:34
PROVIDERS: ATTEND Specialist
DX: M87.052 Idiopathic aseptic necrosis of left femur (principal); I10 Essential (primary) hypertension; J45.909 Unspecified asthma, uncomplicated; Z88.0 Allergy status to penicillin; Z88.8 Allergy status to other drugs, medicaments and biological substances; Z88.5 Allergy status to narcotic agent; Z87.891 Personal history of nicotine dependence; Z79.899 Other long term (current) drug therapy
CPT/HCPCS: 27130; 36415; 72170; 72170-26; 85027; 97110-GP; 97162-GP; 97165-GO; 97530-GP; 97535-GO; 97535-GP; A9270-GY; C1713; C1776; J1650; J1885; J2250; J2704; J3010; J3490; J7030; J7120

== ENCOUNTER 2023-05-21 19:00 | Emergency (ER) | payer MEDICAID ==
[2023-05-21 20:01] VITALS: BP 195/122; PULSE 81
== END 2023-05-21 21:43 | disposition home or self-care (01) ==
LOC: JP.ED 19:00
DX: M25.551 Pain in right hip (principal); E78.00 Pure hypercholesterolemia, unspecified; I10 Essential (primary) hypertension; J45.909 Unspecified asthma, uncomplicated; K21.9 Gastro-esophageal reflux disease without esophagitis; M10.9 Gout, unspecified; E66.9 Obesity, unspecified; Z68.27 Body mass index [BMI] 27.0-27.9, adult; Z88.0 Allergy status to penicillin; Z91.011 Allergy to milk products; Z88.8 Allergy status to other drugs, medicaments and biological substances; Z88.5 Allergy status to narcotic agent; Z79.899 Other long term (current) drug therapy
CPT/HCPCS: 73502-26-RT; 73502-RT; 99283

== ENCOUNTER 2023-06-03 12:17 | Emergency (ER) | payer MEDICAID ==
[2023-06-03 13:47] VITALS: BP 176/106; PULSE 69
== END 2023-06-03 14:40 | disposition home or self-care (01) ==
LOC: JP.ED 12:17
DX: I12.9 Hypertensive chronic kidney disease with stage 1 through stage 4 chronic kidney disease, or unspecified chronic kidney disease (principal); N18.9 Chronic kidney disease, unspecified; J45.909 Unspecified asthma, uncomplicated; K21.9 Gastro-esophageal reflux disease without esophagitis; E78.00 Pure hypercholesterolemia, unspecified; E66.9 Obesity, unspecified; Z88.0 Allergy status to penicillin; Z91.011 Allergy to milk products; Z88.5 Allergy status to narcotic agent; Z79.899 Other long term (current) drug therapy; Z79.51 Long term (current) use of inhaled steroids; Z87.891 Personal history of nicotine dependence; Z68.28 Body mass index [BMI] 28.0-28.9, adult
CPT/HCPCS: 99283

== ENCOUNTER 2023-07-02 06:04 | Day surgery (SDC) | payer MEDICAID ==
[2023-07-02 06:29] LABS: HEMATOCRIT 40.8 % (38.4-49.7); HEMOGLOBIN 13.8 g/dL (12.9-16.9); MEAN CORPUSCULAR HEMOGLOBIN 30.7 pg (31.6-35.5); MEAN CORPUSCULAR HGB CONC 33.8 g/dL (31.6-35.5); MEAN CORPUSCULAR VOLUME 90.9 fL (81.4-99.0); RED BLOOD CELL COUNT 4.49 M/uL (4.14-5.76); WHITE BLOOD CELL COUNT,WBC 11.2 K/uL (3.2-11.0)
[2023-07-02] MEDS ORDERED: Bupivacaine 0.5%/EPINEPHrine 1:200,000 50 ML MDV ONE (06:42)
[2023-07-02 06:50] LABS: A/G RATIO 1.1 (1.2-2.2); ALANINE AMINOTRANSFERASE,ALT 47 U/L (12-78); ALBUMIN 3.7 g/dL (3.4-5.0); ALKALINE PHOSPHATASE 82 U/L (46-116); ASPARTATE AMNIOTRANSFERASE,AST 49 U/L (15-37); BILIRUBIN TOTAL 0.5 mg/dL (0.2-1.0); BLOOD UREA NITROGEN,BUN 18 mg/dL (7-18); CALCIUM 8.5 mg/dL (8.5-10.1); CARBON DIOXIDE,CO2 25 mmol/L (21-32); CHLORIDE,CL 105 mmol/L (100-108); CREATININE 1.3 mg/dL (0.8-1.3); EST CRCL DRUG DOSING (CG) 68.81 mL/min; ESTIMATED GFR 64 mL/min (>60); GLUCOSE RANDOM 91 mg/dL (74-106); PROTEIN TOTAL,TP 7.2 g/dL (6.4-8.2); SODIUM,NA 142 mmol/L (140-148)
[2023-07-02] MEDS ORDERED: Lactated Ringers 1,000 ML IV SCH (07:00)
[2023-07-02] MEDS ORDERED: fentaNYL 250 MCG/5 ML SDV ONE (07:27)
[2023-07-02 09:34] VITALS: BP 155/104; PULSE 62
[2023-07-02] MEDS ORDERED: Dexamethasone 4 MG/ML SDV ONE (11:31)
[2023-07-02] MEDS ORDERED: Propofol 200 MG/20 ML SDV ONE (11:31)
[2023-07-02] MEDS ORDERED: Neostigmine Methylsulfate 1 MG/ML 5 ML Syringe ONE (11:31)
[2023-07-02] MEDS ORDERED: Glycopyrrolate 0.2 MG/ML 5 ML MDV ONE (11:31)
[2023-07-02] MEDS ORDERED: Succinylcholine 200 MG/10 ML MDV ONE (11:31)
[2023-07-02] MEDS ORDERED: Rocuronium 50 MG/5 ML Vial ONE (11:31)
[2023-07-02] MEDS ORDERED: Ondansetron 4 MG/2 ML SDV ONE (11:31)
== END 2023-07-02 09:46 | disposition home or self-care (01) ==
LOC: JP.SDS 06:04
PROVIDERS: ATTEND Specialist
DX: M87.851 Other osteonecrosis, right femur (principal); I10 Essential (primary) hypertension; K21.9 Gastro-esophageal reflux disease without esophagitis; Z88.0 Allergy status to penicillin; Z88.5 Allergy status to narcotic agent; Z88.8 Allergy status to other drugs, medicaments and biological substances
CPT/HCPCS: 27299; 36415; 76000; 80053; 85027; J0330; J1100; J2405; J2704; J2710; J3010; J3370; J3490; J7050; J7120

== ENCOUNTER 2023-07-18 20:33 | Emergency (ER) | payer MEDICAID ==
[2023-07-18] MEDS ORDERED: Labetalol 20 MG/4 ML Syringe IVPUSH ONE (20:40)
[2023-07-18 21:09] LABS: BASOPHILS ABSOLUTE AUTO 0.05 K/uL (0.00-0.10); BASOPHILS PERCENT AUTO 0.5 % (0.1-1.3); EOSINOPHILS ABSOLUTE AUTO 0.04 K/uL (0.00-0.40); EOSINOPHILS PERCENT AUTO 0.4 % (0.0-5.4); HEMATOCRIT 39.9 % (38.4-49.7); HEMOGLOBIN 13.9 g/dL (12.9-16.9); IMMATURE GRAN ABSOLUTE AUTO 0.05 K/uL (0.00-0.23); IMMATURE GRAN PERCENT AUTO 0.5 % (0.0-0.7); LYMPHOCYTES ABSOLUTE AUTO 2.59 K/uL (0.8-3.3); LYMPHOCYTES PERCENT AUTO 28.4 % (11.4-47.7); MEAN CORPUSCULAR HEMOGLOBIN 31.2 pg (31.6-35.5); MEAN CORPUSCULAR HGB CONC 34.8 g/dL (31.6-35.5); MEAN CORPUSCULAR VOLUME 89.5 fL (81.4-99.0); MONOCYTES ABSOLUTE AUTO 0.51 K/uL (0.20-0.90); MONOCYTES PERCENT AUTO 5.6 % (3.3-12.6); NEUTROPHILS ABSOLUTE AUTO 5.88 K/uL (1.0-7.6); NEUTROPHILS PERCENT AUTO 64.6 % (40.0-78.1); PLATELET COUNT,PLT 187 K/uL (130-375); RED BLOOD CELL COUNT 4.46 M/uL (4.14-5.76); WHITE BLOOD CELL COUNT,WBC 9.1 K/uL (3.2-11.0)
[2023-07-18 21:37] LABS: ALANINE AMINOTRANSFERASE,ALT 48 U/L (12-78); ALBUMIN 3.2 g/dL (3.4-5.0); ALKALINE PHOSPHATASE 76 U/L (46-116); ASPARTATE AMNIOTRANSFERASE,AST 33 U/L (15-37); BILIRUBIN TOTAL 0.6 mg/dL (0.2-1.0); BLOOD UREA NITROGEN,BUN 15 mg/dL (7-18); C-REACTIVE PROTEIN <0.05 mg/dL (0.0-0.3); CALCIUM 7.9 mg/dL (8.5-10.1); CARBON DIOXIDE,CO2 24 mmol/L (21-32); CHLORIDE,CL 103 mmol/L (100-108); EST CRCL DRUG DOSING (CG) 89.46 mL/min; ESTIMATED GFR 88 mL/min (>60); GLUCOSE RANDOM 94 mg/dL (74-106); POTASSIUM,K 3.1 mmol/L (3.6-5.2); PRO B-TYPE NATRIUR PEPT,BNPPRO 210 pg/mL (5-125); PROTEIN TOTAL,TP 6.5 g/dL (6.4-8.2); SODIUM,NA 138 mmol/L (140-148); TROPONIN I HIGH SENSITIVITY 39.7 pg/mL (<=60.3)
[2023-07-18 21:38] LABS: ANION GAP 14.1 mmol/L (5.0-14.0)
[2023-07-18] MEDS ORDERED: Calcium Gluconate 10% 1 GM/10 ML SDV IVPUSH ONE (21:55)
[2023-07-18] MEDS ORDERED: hydrALAZINE 20 MG/ML SDV IVPUSH ONE (21:57)
[2023-07-18] MEDS ORDERED: Potassium Chloride 20 MEQ Tab.ER PO ONE (21:59)
[2023-07-18 22:34] VITALS: PULSE 92
[2023-07-18] MEDS ORDERED: hydrALAZINE 10 MG Tab PO STA (22:59)
[2023-07-18 23:15] VITALS: BP 157/91
== END 2023-07-18 23:22 | disposition home or self-care (01) ==
LOC: JP.ED 20:33
DX: I10 Essential (primary) hypertension (principal); J45.909 Unspecified asthma, uncomplicated; E66.9 Obesity, unspecified; Z88.0 Allergy status to penicillin; Z88.8 Allergy status to other drugs, medicaments and biological substances; Z88.5 Allergy status to narcotic agent; Z79.899 Other long term (current) drug therapy
CPT/HCPCS: 36415; 71046; 80053; 83880; 84484; 85025; 86140; 87635; 93005; 96374; 96375; 99285; A9270; J0360; J0612; J3490; U0002

== ENCOUNTER 2024-10-03 17:05 | Emergency (ER) | payer OTHER ==
[2024-10-03 17:55] LABS: BASOPHILS ABSOLUTE AUTO 0.03 K/uL (0.00-0.10); BASOPHILS PERCENT AUTO 0.4 % (0.1-1.3); HEMATOCRIT 28.2 % (38.4-49.7); HEMOGLOBIN 10.1 g/dL (12.9-16.9); IMMATURE GRAN PERCENT AUTO 0.3 % (0.0-0.7); LYMPHOCYTES ABSOLUTE AUTO 0.98 K/uL (0.8-3.3); LYMPHOCYTES PERCENT AUTO 14.5 % (11.4-47.7); MEAN CORPUSCULAR HEMOGLOBIN 33.3 pg (31.6-35.5); MEAN CORPUSCULAR HGB CONC 35.8 g/dL (31.6-35.5); MEAN CORPUSCULAR VOLUME 93.1 fL (81.4-99.0); MONOCYTES ABSOLUTE AUTO 0.36 K/uL (0.20-0.90); MONOCYTES PERCENT AUTO 5.3 % (3.3-12.6); NEUTROPHILS ABSOLUTE AUTO 5.39 K/uL (1.0-7.6); NEUTROPHILS PERCENT AUTO 79.5 % (40.0-78.1); PLATELET COUNT,PLT 93 K/uL (130-375); RED BLOOD CELL COUNT 3.03 M/uL (4.14-5.76); WHITE BLOOD CELL COUNT,WBC 6.8 K/uL (3.2-11.0)
[2024-10-03 17:58] LABS: IMMATURE GRAN ABSOLUTE AUTO 0.02 K/uL (0.00-0.23)
[2024-10-03] MEDS: Sodium Chloride 0.9% 1,000 ML IV SCH (18:08)
[2024-10-03 18:20] LABS: A/G RATIO 1.2 (1.2-2.2); ALANINE AMINOTRANSFERASE,ALT 21 U/L (12-78); ALBUMIN 3.9 g/dL (3.4-5.0); ALKALINE PHOSPHATASE 75 U/L (46-116); ASPARTATE AMNIOTRANSFERASE,AST 53 U/L (15-37); BILIRUBIN TOTAL 1.2 mg/dL (0.2-1.0); BLOOD UREA NITROGEN,BUN 5 mg/dL (7-18); CARBON DIOXIDE,CO2 24 mmol/L (21-32); CHLORIDE,CL 104 mmol/L (100-108); CREATININE 1.1 mg/dL (0.8-1.3); EST CRCL DRUG DOSING (CG) 80.34 mL/min; ESTIMATED GFR 78 mL/min (>60); GLUCOSE RANDOM 83 mg/dL (74-106); PROTEIN TOTAL,TP 7.2 g/dL (6.4-8.2); SODIUM,NA 143 mmol/L (140-148)
[2024-10-03 18:24] LABS: ANION GAP 17.7 mmol/L (5.0-14.0); POTASSIUM,K 2.7 mmol/L (3.6-5.2)
[2024-10-03 18:52] LABS: CORONAVIRUS COVID-19 NAA NEGATIVE (NEGATIVE); INFLUENZA A NAA NEGATIVE (NEGATIVE); INFLUENZA B NAA NEGATIVE (NEGATIVE); RESPIRATORY SYNCYTIAL VIR NAA NEGATIVE (NEGATIVE)
[2024-10-03] MEDS: Ondansetron 4 MG/2 ML SDV IVPUSH ONE (18:52)
[2024-10-03] MEDS: Potassium Chloride 10 MEQ Cap.ER PO ONE (18:52)
[2024-10-03 19:34] VITALS: BP 177/109; PULSE 93
== END 2024-10-03 19:13 | disposition home or self-care (01) ==
LOC: JP.ED 17:05
DX: R42 Dizziness and giddiness (principal); I95.1 Orthostatic hypotension; E87.6 Hypokalemia; D64.9 Anemia, unspecified; I10 Essential (primary) hypertension; J45.909 Unspecified asthma, uncomplicated; E66.9 Obesity, unspecified; Z96.649 Presence of unspecified artificial hip joint; Z88.0 Allergy status to penicillin; Z88.5 Allergy status to narcotic agent; Z88.8 Allergy status to other drugs, medicaments and biological substances; Z91.011 Allergy to milk products; Z79.51 Long term (current) use of inhaled steroids; Z79.899 Other long term (current) drug therapy; Z68.26 Body mass index [BMI] 26.0-26.9, adult
CPT/HCPCS: 0241U; 36415; 80053; 85025; 93005; 96361; 96374; 99284; A9270; J2405; J7030; 93010

== ENCOUNTER 2025-06-13 08:31 | Inpatient (IN) | payer MEDICAID ==
[~2025-06-13 08:31] MED LIST changes: -Bupivacaine 0.5% 30 ML SDV ONE; +Midazolam 1 MG/ML 2 ML SDV ONE; +Propofol 200 MG/20 ML SDV ONE; +fentaNYL 100 MCG/2 ML SDV ONE
[2025-06-13] MEDS: Lactated Ringers 1,000 ML IV SCH (08:53)
[2025-06-13] MEDS: Nozin Nasal Sanitizer NASBOTH SCH ×2 (08:54→21:42)
[2025-06-13 09:16] LABS: BASOPHILS ABSOLUTE AUTO 0.04 K/uL (0.00-0.10); BASOPHILS PERCENT AUTO 0.4 % (0.1-1.3); EOSINOPHILS ABSOLUTE AUTO 0.06 K/uL (0.00-0.40); EOSINOPHILS PERCENT AUTO 0.7 % (0.0-5.4); IMMATURE GRAN PERCENT AUTO 0.2 % (0.0-0.7); LYMPHOCYTES ABSOLUTE AUTO 2.25 K/uL (0.8-3.3); LYMPHOCYTES PERCENT AUTO 24.9 % (11.4-47.7); MONOCYTES ABSOLUTE AUTO 0.44 K/uL (0.20-0.90); MONOCYTES PERCENT AUTO 4.9 % (3.3-12.6); NEUTROPHILS ABSOLUTE AUTO 6.23 K/uL (1.0-7.6); NEUTROPHILS PERCENT AUTO 68.9 % (40.0-78.1); PLATELET COUNT,PLT 285 K/uL (130-375); RED BLOOD CELL COUNT 4.91 M/uL (4.14-5.76); WHITE BLOOD CELL COUNT,WBC 9.0 K/uL (3.2-11.0)
[2025-06-13 09:21] LABS: IMMATURE GRAN ABSOLUTE AUTO 0.02 K/uL (0.00-0.23)
[2025-06-13 09:32] LABS: A/G RATIO 0.9 (1.2-2.2); ALANINE AMINOTRANSFERASE,ALT 32 U/L (12-78); ASPARTATE AMNIOTRANSFERASE,AST 21 U/L (15-37); BILIRUBIN TOTAL 0.5 mg/dL (0.2-1.0); BLOOD UREA NITROGEN,BUN 15 mg/dL (7-18); CARBON DIOXIDE,CO2 29 mmol/L (21-32); CHLORIDE,CL 104 mmol/L (100-108); CREATININE 1.1 mg/dL (0.8-1.3); ESTIMATED GFR 77 mL/min (>60); GLUCOSE RANDOM 95 mg/dL (74-106); POTASSIUM,K 3.6 mmol/L (3.6-5.2); PROTEIN TOTAL,TP 8.1 g/dL (6.4-8.2); SODIUM,NA 140 mmol/L (140-148)
[2025-06-13] MEDS: Tranexamic Acid 980 MG in Sodium Chloride 0.9% 50 ML IV ONE (10:10)
[2025-06-13] MEDS ORDERED: Propofol 200 MG/20 ML SDV ONE ×2 (10:27→11:05)
[2025-06-13] MEDS ORDERED: Midazolam 1 MG/ML 2 ML SDV ONE (10:33)
[2025-06-13] MEDS ORDERED: fentaNYL 100 MCG/2 ML SDV ONE (10:33)
[2025-06-13] MEDS ORDERED: Lactated Ringers 1,000 ML ONE (10:50)
[2025-06-13] MEDS ORDERED: Ondansetron 4 MG/2 ML SDV IVPUSH PRN (12:17)
[2025-06-13] MEDS: Ketorolac 15 MG/ML SDV IVPUSH PRN (17:19)
[2025-06-14 06:00] LABS: PLATELET COUNT,PLT 224.0 K/uL (130-375); RED BLOOD CELL COUNT 4.19 M/uL (4.14-5.76); WHITE BLOOD CELL COUNT,WBC 9.7 K/uL (3.2-11.0)
[2025-06-14] MEDS: Aspirin 325 MG Tab.EC PO SCH (08:40)
[2025-06-15 05:34] VITALS: BP 146/79
[2025-06-15 08:20] VITALS: PULSE 72
== END 2025-06-15 10:37 | disposition home or self-care (01) | DRG 470 ==
LOC: JP.SDS 08:31 → JP.MS 12:18 → JP.SDS 06-14 16:12 → JP.MS 06-14 16:13
PROVIDERS: ADMIT Specialist; ATTEND Specialist
PROC: 0SR90JA Replacement of Right Hip Joint with Synthetic Substitute, Uncemented, Open Approach (ICD-10-PCS; principal; 2025-06-14)
DX: M16.11 Unilateral primary osteoarthritis, right hip (principal); G89.29 Other chronic pain; M25.569 Pain in unspecified knee; M10.9 Gout, unspecified; I10 Essential (primary) hypertension; J45.20 Mild intermittent asthma, uncomplicated; F17.200 Nicotine dependence, unspecified, uncomplicated; Z98.890 Other specified postprocedural states; Z88.0 Allergy status to penicillin; Z79.899 Other long term (current) drug therapy
CPT/HCPCS: 36415; 72170; 72170-26; 80053; 85025; 85027; 94640; 97116-GP; 97161-GP; A9270-GY; C1713; C1776; J0690; J1885; J2250; J2704; J3010; J7030; J7120